=== PATIENT | female | born 1965 | race Native Hawaiian/Other Pacific Islander ===

== ENCOUNTER 2019-11-15 11:43 | Emergency (ER) | payer MEDICAID, SELFPAY ==
--- NOTE | 2019-11-15 | US_ITS ---
EXAMINATION: US VENOUS ULTRASOUND WITH DOPPLER LOWER EXTREMITY, RIGHT CLINICAL INFORMATION: Right lower extremity pain and edema. Assess for occult DVT. COMPARISON: None TECHNIQUE: Ultrasound of the deep veins is performed from the hip to the calf with compression sonography and color and pulse Doppler assessment. Spectral analysis with color-flow imaging is performed. FINDINGS: There is normal venous compression and respiratory variation and augmented flow. The visualized common femoral vein, superficial femoral vein, profunda femoral vein, popliteal vein, and visualized mid calf peroneal and posterior tibial venous segments show no evidence of deep venous thrombosis. There is no popliteal fossa cyst demonstrated. IMPRESSION: No DVT demonstrated in the right lower extremity.
[2019-11-15 11:45] VITALS: BP 119/78; PULSE 87; RESP 18; TEMP 37.5; O2SAT 100; BMI 33.1
--- NOTE | 2019-11-15 15:15 | ED.SKABFB ---
HPI - Skin/Abscess/Foreign Bdy General Chief complaint: Extremity Problem Stated complaint: cellulitis Time Seen by Provider: 11/15/19 12:55 Source: patient and interpreter translator Mode of arrival: ambulatory Limitations: no limitations History of Present Illness MD complaint: rash and lesion Onset (ago): day(s) (3) Location: RLE Severity: moderate Quality: aching Relieving factors: none Exacerbating factors: none Context: none Associated symptoms: fever, chills and cough Treatments prior to arrival: none Related Data Allergies Allergy/AdvReac Type Severity Reaction Status Date / Time No Known Allergies Allergy Unverified 10/27/19 17:10 Review of Systems Review of Systems: Constitutional : + Fever, + Chills ENT/Mouth : No sore throat, No Rhinorrhea Eyes: No Eye Pain, No Swelling, No Redness Cardiovascular : No Chest Pain, No SOB Respiratory : + Cough, No Sputum Gastrointestinal : No Nausea, No Vomiting, No Diarrhea, No abdominal Pain Genitourinary : No Dysuria, No Hematuria Musculoskeletal : No joint pain, + Myalgias, No Joint Swelling Skin : No Skin Lesions, positive skin rash Neuro : No Weakness, No Numbness, No Headache Psych : No Anxiety, No Depression Heme/Lymph: No Bruising, No Bleeding,No Lymphadenopathy Endocrine : No Polyuria, No Polydipsia All other systems reviewed and are negative [facility] Past Medical History Medical History Asthma HIV (human immunodeficiency virus infection) HTN (hypertension) Social History Social History Alcohol intake: unknown Smoking Status: Former smoker Smoked in Last 30 Days: No Use of substances other than those prescribed or required for medical reasons: Unknown Advance Directives: No Advance Directives Information Provided: No Physical Exam Vital Signs and I&O and Narrative: Vital Signs and I&O: Vital Signs Temp 100.4 F 11/15/19 15:37 Pulse 78 11/15/19 15:37 Resp 16 11/15/19 15:37 BP 144/84 H 11/15/19 15:37 Pulse Ox 98 11/15/19 15:37 Intake & Output 11/14/19 11/15/19 11/15/19 18:59 06:59 18:59 Weight 67.132 kg Body Mass Index 33.1 Appearance: Alert. Oriented X3. No acute distress. Eyes: Pupils equal, round and reactive to light. ENT: Pharynx normal. Neck: Normal inspection. Neck supple. CVS: Normal heart rate and rhythm. Pulses normal. Respiratory: No respiratory distress. Breath sounds normal. Abdomen: Soft and nontender. Skin: Skin warm and dry. Normal skin color. + erythema mild R lower leg not circumferential, no streaking upwards Extremities: positive right lower extremity edema. + R calf pain Neuro: Oriented X 3. No motor deficit. No sensory deficit. Course Course Course Narrative: signed out to Dr. Garcia pending workup and MDM - Skin/Abscess/Foreign Bdy MDM Narrative Medical decision making narrative: patinet with multiple complaints including RLE pain and rash with fevers and chills x 3 days - mild cellulitis will need labs, cultures, lactic acid, venous duplex for DVT she is NV intact, PO pain control, also c/o cough - CXR and COVID ordered Lab Data Result diagrams: 11/15/19 15:45 11/15/19 15:45 Labs: Lab Results 11/15/19 11/15/19 11/15/19 Range/Units 15:45 15:45 15:45 WBC 6.4 (4.8-10.8) X10*3/uL RBC 4.01 L (4.20-5.50) X10*6/uL Hgb 12.5 (12.0-16.0) g/dl Hct 38.3 (37-47) % MCV 95.5 (80-98) fL MCH 31.2 (27.0-33.0) pg MCHC 32.6 (31.0-35.0) g/dl RDW 13.8 (11.0-16.0) % Plt Count 304 (160-400) X10*3/uL MPV 8.2 L (9.4-12.3) fL Immature Gran % (Auto) 0.3 (0.0-0.4) % Neut % (Auto) 65.2 (45-73) % Lymph % (Auto) 18.7 L (20-40) % [place] % (Auto) 13.4 H (2-11) % Eos % (Auto) 1.9 (0-4) % Baso % (Auto) 0.5 (0-2) % Neut # (Auto) 4.2 (2.0-8.3) X10*3/uL Lymph # (Auto) 1.2 (1.2-4.9) X10*3/uL [place] # (Auto) 0.9 (0.1-1.2) X10*3/uL Eos # (Auto) 0.1 (0.0-0.4) X10*3/uL Baso # (Auto) 0.0 (0.0-0.2) X10*3/uL Abs Immat Gran (auto) 0.02 (0.00-0.03) X10*3/uL Absolute Nucleated RBC 0.000 (0.0-0.012) X10*3/uL Nucleated RBC % (auto) 0.0 (0.0-0.2) /100WBC PT 11.9 (10.8-13.0) SEC INR 1.0 (0.9-1.1) APTT 37.3 (24.1-38.0) SEC Sodium 139 (135-145) mmol/L Potassium 3.6 (3.3-5.1) mmol/l Chloride 104 (96-108) mmol/L Carbon Dioxide 28 (22-29) mmol/L Anion Gap 11 L (12-20) BUN 6 L (9-16) mg/dL Creatinine 0.97 (0.5-1.4) mg/dL Estim Creat Clear Calc 50.2 Estimated GFR 60 Random Glucose 103 (60-115) mg/dL Lactic Acid (0.5-2.0) mmol/L Calcium 8.7 (8.4-10.2) mg/dL Magnesium 2.0 (1.6-2.6) mg/dL Total Bilirubin 0.4 (0.0-1.0) mg/dL Direct Bilirubin 0.2 (0.0-0.5) mg/dL AST 22 (5-31) U/L ALT 18 (0-31) U/L Alkaline Phosphatase 94 (39-117) U/L Total Protein 7.3 (6.5-8.0) g/dL Albumin 4.3 (3.5-5.0) g/dL 11/15/19 Range/Units 15:45 WBC (4.8-10.8) X10*3/uL RBC (4.20-5.50) X10*6/uL Hgb (12.0-16.0) g/dl Hct (37-47) % MCV (80-98) fL MCH (27.0-33.0) pg MCHC (31.0-35.0) g/dl RDW (11.0-16.0) % Plt Count (160-400) X10*3/uL MPV (9.4-12.3) fL Immature Gran % (Auto) (0.0-0.4) % Neut % (Auto) (45-73) % Lymph % (Auto) (20-40) % [place] % (Auto) (2-11) % Eos % (Auto) (0-4) % Baso % (Auto) (0-2) % Neut # (Auto) (2.0-8.3) X10*3/uL Lymph # (Auto) (1.2-4.9) X10*3/uL [place] # (Auto) (0.1-1.2) X10*3/uL Eos # (Auto) (0.0-0.4) X10*3/uL Baso # (Auto) (0.0-0.2) X10*3/uL Abs Immat Gran (auto) (0.00-0.03) X10*3/uL Absolute Nucleated RBC (0.0-0.012) X10*3/uL Nucleated RBC % (auto) (0.0-0.2) /100WBC PT (10.8-13.0) SEC INR (0.9-1.1) APTT (24.1-38.0) SEC Sodium (135-145) mmol/L Potassium (3.3-5.1) mmol/l Chloride (96-108) mmol/L Carbon Dioxide (22-29) mmol/L Anion Gap (12-20) BUN (9-16) mg/dL Creatinine (0.5-1.4) mg/dL Estim Creat Clear Calc Estimated GFR Random Glucose (60-115) mg/dL Lactic Acid 1.1 (0.5-2.0) mmol/L Calcium (8.4-10.2) mg/dL Magnesium (1.6-2.6) mg/dL Total Bilirubin (0.0-1.0) mg/dL Direct Bilirubin (0.0-0.5) mg/dL AST (5-31) U/L ALT (0-31) U/L Alkaline Phosphatase (39-117) U/L Total Protein (6.5-8.0) g/dL Albumin (3.5-5.0) g/dL Discharge Plan Discharge Clinical Impression: Pneumonia Qualifiers: Pneumonia type: due to unspecified organism Laterality: left Lung location: unspecified part of lung Qualified Code(s): J18.9 - Pneumonia, unspecified organism Cellulitis Qualifiers: Site of cellulitis: extremity Site of cellulitis of extremity: lower extremity Laterality: right Qualified Code(s): L03.115 - Cellulitis of right lower limb
--- NOTE | 2019-11-15 15:16 | XR_ITS ---
EXAMINATION: XR CHEST CLINICAL INFORMATION: Cough COMPARISON: Previous chest x-ray October 2018 TECHNIQUE: Frontal view of the chest was obtained. FINDINGS: The cardiac and mediastinal contours are stable. There is a left perihilar density projecting over the posterior left eighth rib questionable for small infiltrate versus superimposition of bone and vascular markings. The right lung is clear. There is no pleural effusion or pneumothorax. Bony structures are unremarkable. IMPRESSION: Question small left perihilar infiltrate.
[2019-11-15 15:37] VITALS: BP 144/84; PULSE 78; RESP 16; TEMP 38; O2SAT 98
[2019-11-15 15:50] LABS: MANUAL DIFF FLAG NO
[2019-11-15 15:52] LABS: Basophils Percent Auto 0.5 % (0-2); Eosinophils Absolute Auto 0.1 X10*3/uL (0.0-0.4); Eosinophils Percent Auto 1.9 % (0-4); Hematocrit 38.3 % (37-47); Hemoglobin 12.5 g/dl (12.0-16.0); Imm Gran Abs Auto 0.02 X10*3/uL (0.00-0.03); Imm Gran Pct Auto 0.3 % (0.0-0.4); Lymphocytes Absolute Auto 1.2 X10*3/uL (1.2-4.9); Lymphocytes Percent Auto 18.7 % (20-40); Mean Corpuscular HGB Conc 32.6 g/dl (31.0-35.0); Mean Corpuscular Hemoglobin 31.2 pg (27.0-33.0); Mean Corpuscular Volume 95.5 fL (80-98); Mean Platelet Volume 8.2 fL (9.4-12.3); Monocytes Absolute Auto 0.9 X10*3/uL (0.1-1.2); Monocytes Percent Auto 13.4 % (2-11); Neutrophils Absolute Auto 4.2 X10*3/uL (2.0-8.3); Neutrophils Percent Auto 65.2 % (45-73); Platelet Count 304 X10*3/uL (160-400); Red Blood Count 4.01 X10*6/uL (4.20-5.50); Red Cell Distribution Width 13.8 % (11.0-16.0); White Blood Count 6.4 X10*3/uL (4.8-10.8)
[2019-11-15] MEDS: HYDROcodone Bit/Acetam 5/325 TABLET 1 TAB PO (16:03)
[2019-11-15 16:05] LABS: Prothrombin Time 11.9 SEC (10.8-13.0)
[2019-11-15 16:07] LABS: Partial Thromboplastin Time 37.3 SEC (24.1-38.0)
[2019-11-15 16:09] LABS: Lactic Acid 1.1 mmol/L (0.5-2.0)
[2019-11-15 16:15] LABS: Alanine Aminotransferase 18 U/L (0-31); Albumin Level 4.3 g/dL (3.5-5.0); Alkaline Phosphatase 94 U/L (39-117); Anion Gap 11 (12-20); Aspartate Amino Transferase 22 U/L (5-31); Bilirubin Direct 0.2 mg/dL (0.0-0.5); Bilirubin Total 0.4 mg/dL (0.0-1.0); Blood Urea Nitrogen 6 mg/dL (9-16); Calcium 8.7 mg/dL (8.4-10.2); Carbon Dioxide 28 mmol/L (22-29); Chloride 104 mmol/L (96-108); Creatinine Clr Calc Pharmacy 50.2; Estimated Glomerular Filt Rate 60; Glucose Random 103 mg/dL (60-115); Potassium 3.6 mmol/l (3.3-5.1); Sodium 139 mmol/L (135-145); Total Protein 7.3 g/dL (6.5-8.0)
--- NOTE | 2019-11-15 16:15 | PC.NURSE ---
ATTEMPT X2 FOR IV ACCESS UNSUCCESSFUL PT TO US, PT WAS MEDICATED PO FOR PAIN
[2019-11-15 16:44] VITALS: BP 133/81; PULSE 75; RESP 16; TEMP 37.2; O2SAT 95
[2019-11-15] MEDS: Piperacillin Sodium/Tazobactam 3.375 GM in 0.9 % Sodium Chloride 50 ML IV (16:52)
[2019-11-15 18:52] VITALS: BP 132/75
== END 2019-11-15 18:52 | disposition home or self-care (01) ==
PROVIDERS: Emergency Medicine; Emergency Provider Internal Medicine
DX: L03.115 Cellulitis of right lower limb (principal); J18.9 Pneumonia, unspecified organism; M79.661 Pain in right lower leg; I10 Essential (primary) hypertension; Z20.828 Contact with and (suspected) exposure to other viral communicable diseases; Z21 Asymptomatic human immunodeficiency virus [HIV] infection status; Z87.891 Personal history of nicotine dependence
CPT/HCPCS: 36415; 71045; 80048; 80076; 83605; 83735; 85025; 85610; 85730; 87040; 87635; 93971; 96365; 99284

== ENCOUNTER 2019-12-16 12:42 | Outpatient (REF) | payer MEDICAID, SELFPAY ==
--- NOTE | 2019-12-16 | MM_ITS ---
EXAMINATION: MM DIAGNOSTIC DIGITAL BREAST TOMOSYNTHESIS, RIGHT TARGETED RIGHT BREAST ULTRASOUND CLINICAL INFORMATION: Right breast pain. Status post right lumpectomy and radiation therapy. COMPARISON: Mammography: 10/04/2019 and studies dating back to 12/17/2009. TECHNIQUE: Digital breast tomosynthesis is performed in craniocaudal, exaggerated craniocaudal, and mediolateral oblique views along with computer-aided detection (CAD). Synthesized 2D images are generated from the tomosynthesis. Targeted right breast ultrasound. FINDINGS: There are scattered areas of fibroglandular density (ACR BI-RADS breast composition Category b). Patient status post right breast lumpectomy with postsurgical change upper outer aspect. No new abnormal dominant mass or suspicious grouping of calcifications identified. Ultrasound evaluation in regions of patient's pain which involves nearly the entire right breast did not demonstrate any new abnormal cystic or solid mass or region of abnormal distal sound shadowing that is not associated with the surgical region. MM/MM tomosynthesis screening BI IMPRESSION: No specific mammographic or ultrasound abnormalities to suggest new malignancy right breast. Clinical followup suggested. ASSESSMENT: BI-RADS 2: Benign. RECOMMENDATION: Routine annual mammography screening. This patient's information was entered into a reminder system with a target due date for their next mammogram.
--- NOTE | 2019-12-16 | MM_ITS ---
EXAMINATION: BONE DENSITOMETRY CLINICAL INDICATION: Encounter for screening for osteoporosis. COMPARISON: This is the patient's baseline examination. TECHNIQUE: Using a [employer] DXA System (software version: 13.1) manufactured by [employer], dual-energy x-ray absorptiometry was performed of the lumbar spine and left hip. The images are of good technical quality. Summary results are attached. FINDINGS: AP SPINE L1-L4: BMD 1.257 g/cm2, Z-score 1.5, T-score 0.6, normal. LEFT FEMUR, NECK: BMD 0.970 g/cm2, Z-score 0.5, T-score -0.5, normal. LEFT FEMUR, TOTAL: BMD 0.990 g/cm2, Z-score 0.5, T-score -0.1, normal. IDENTIFIED RISK FACTORS: Menopause. HISTORY OF FRACTURE: None listed. MEDICATIONS: Calcium supplements or multivitamins. MM/XR DEXA axial skeleton IMPRESSION: 1. DIAGNOSIS: Normal bone density based on the lowest T-score value of -0.5 in the femoral neck applying World Health Organization criteria. 2. 10-YEAR FRACTURE RISK PREDICTION, FRAX: Major osteoporotic fracture (clinical spine, forearm, hip or shoulder) 6.0%. Hip fracture 0.1%. 3. Treatment Recommendations: NOF guidelines recommend consideration for treatment in postmenopausal women and men age 50 and older presenting with the following: -A hip or vertebral (clinical or morphometric) fracture. -T-score less than or equal to -2.5 at the femoral neck or spine after appropriate evaluation to exclude secondary causes. -Low bone mass at the hip or spine and a 10-year fracture probability by FRAX of greater than or equal to 3% for hip fracture or greater than or equal to 20% for major osteoporotic fracture based on the [place] adapted WHO algorithm. 4. Other Recommendations: All treatment decisions require clinical judgment and consideration of individual patient factors, including patient preferences, comorbidities, previous drug use, risk factors not captured in the FRAX model (e.g. frailty, falls, vitamin D deficiency, increased bone turnover, interval significant decline in bone density) and possible under or overestimation of fracture risk by FRAX. FUTURE SCAN RECOMMENDATION: People with diagnosed cases of osteoporosis or at high risk for fracture should have regular bone mineral density tests. For patients eligible for Medicare, routine testing is allowed once every 2 years. The testing frequency can be increased to one year for patients who have rapidly progressing disease, those who are receiving or discontinuing medical therapy to restore bone mass, or have additional risk factors.
== END 2019-12-16 12:43 | disposition home or self-care (01) ==
LOC: HO.MAMMO 12:42
PROVIDERS: Visit Provider Advanced Practice Midwife
DX: N64.4 Mastodynia (principal); Z85.3 Personal history of malignant neoplasm of breast; Z13.820 Encounter for screening for osteoporosis; Z21 Asymptomatic human immunodeficiency virus [HIV] infection status
CPT/HCPCS: 76642; 77063; 77067; 77080

== ENCOUNTER 2020-03-22 11:14 | Outpatient (REF) | payer MEDICAID, SELFPAY ==
--- NOTE | ~2020-03-22 | US_ITS ---
EXAMINATION: US ABDOMEN COMPLETE CLINICAL INFORMATION: Right upper quadrant pain and distention.. COMPARISON: None TECHNIQUE: Real-time imaging of the abdominal viscera. FINDINGS: PANCREAS: The head and the body of the pancreas is homogeneous in echotexture. The tail is obscured by overlying gas. ABDOMINAL AORTA: The proximal, mid, and distal segments are normal in caliber. INFERIOR VENA CAVA: Visualized portions are normal. LIVER: Normal. The liver is normal in size. The liver contour is normal. Parenchymal echogenicity is normal. No focal hepatic lesion. There is no intrahepatic biliary duct dilatation seen. GALLBLADDER: The gallbladder wall thickness is 0.18 cm. The gallbladder is physiologically distended without evidence of stones, sludge, polyps, wall thickening or pericholecystic fluid. COMMON BILE DUCT: Normal in caliber measuring 0.67 cm in diameter. RIGHT KIDNEY: Normal. No hydronephrosis. No renal calculi or focal parenchymal lesions. The kidney measures 9.7 cm in maximum dimension. LEFT KIDNEY: Normal. No hydronephrosis. No renal calculi or focal parenchymal lesions. The kidney measures 10.3 cm in maximum dimension. SPLEEN: There are echogenic calcifications in the spleen. The spleen measures 7.4 cm in maximum dimension. FREE FLUID: None. US/US abdomen complete IMPRESSION: Small echogenic calcifications spleen, microlithiasis. The gallbladder is unremarkable. Rest of the abdominal ultrasound is unremarkable.
== END 2020-03-22 11:15 | disposition home or self-care (01) ==
LOC: HO.HMGCX 11:14
PROVIDERS: Visit Provider Nurse Practitioner Primary Care
DX: R10.11 Right upper quadrant pain (principal); R14.0 Abdominal distension (gaseous)
CPT/HCPCS: 76700

== ENCOUNTER → 2020-05-29 13:12 | Outpatient (BNVA) | payer MEDICAID, SELFPAY | PROVIDERS: Visit Provider Physician Assistant ==

== ENCOUNTER 2020-08-28 12:27 | Outpatient (REF) | payer MEDICAID, SELFPAY ==
--- NOTE | ~2020-08-28 | US_ITS ---
EXAMINATION: US VENOUS ULTRASOUND WITH DOPPLER LOWER EXTREMITY, BILATERAL CLINICAL INFORMATION: Bilateral leg pain and swelling. COMPARISON: None TECHNIQUE: Ultrasound of the deep veins is performed from the hip to the calf with compression sonography and color and pulse Doppler assessment. Spectral analysis with color-flow imaging is performed. FINDINGS: RIGHT: There is normal venous compression and respiratory variation and augmented flow. The visualized common femoral vein, superficial femoral vein, profunda femoral vein, popliteal vein, and the trifurcation region shows no evidence of deep venous thrombosis. There is no significant popliteal fossa cyst. LEFT: There is normal venous compression and respiratory variation and augmented flow. The visualized common femoral vein, superficial femoral vein, profunda femoral vein, popliteal vein, and the trifurcation region shows no evidence of deep venous thrombosis. There is no significant popliteal fossa cyst. If the patient's symptoms persist, followup ultrasound in 5 days 7 days might be of value to exclude proximal propagation from a non-visualized calf vein. US/US venous duplex LE BI IMPRESSION: No DVT demonstrated in the bilateral lower extremity.
== END 2020-08-28 12:28 | disposition home or self-care (01) ==
LOC: HO.US 12:27
PROVIDERS: PCP Nurse Practitioner Family; Visit Provider Emergency Medicine
DX: M79.661 Pain in right lower leg (principal); M79.662 Pain in left lower leg; R22.43 Localized swelling, mass and lump, lower limb, bilateral
CPT/HCPCS: 93970

== ENCOUNTER 2020-12-03 18:44 | Emergency (ER) | payer MEDICAID, SELFPAY ==
--- NOTE | ~2020-12-03 | US_ITS ---
EXAMINATION: US ABDOMEN LIMITED CLINICAL INFORMATION: Right upper quadrant pain.. COMPARISON: Ultrasound of abdomen March 22, 2020 TECHNIQUE: Real-time imaging of the right upper quadrant abdominal viscera. Color Doppler exam was used. FINDINGS: PANCREAS: Normal. LIVER: Normal. The liver is normal in size. The liver contour is normal. Parenchymal echogenicity is normal. No focal hepatic lesion. There is no intrahepatic biliary duct dilatation seen. GALLBLADDER: Normal. The gallbladder is physiologically distended without evidence of stones, sludge, polyps, wall thickening or pericholecystic fluid. Positive ultrasound Gray's sign. COMMON BILE DUCT: Normal in caliber measuring 0.4 cm in diameter. RIGHT KIDNEY: Normal. No hydronephrosis. No renal calculi or focal parenchymal lesions. The kidney measures 9.3 cm in maximum dimension. FREE FLUID: None. US/US abdomen limited IMPRESSION: No gallstone or acute change of gallbladder. No bile duct dilatation. Positive ultrasound Gray's sign.
--- NOTE | ~2020-12-03 | CT_ITS ---
EXAMINATION: CT ABDOMEN AND PELVIS WITHOUT CONTRAST CLINICAL INFORMATION: Upper abdominal pain COMPARISON: Ultrasound abdomen 12/03/2020 TECHNIQUE: Multidetector volumetric imaging was performed from the superior aspect of the liver through the pubic symphysis. Sagittal and coronal reformatted images were obtained on the technologist's workstation. This CT examination was performed using dose optimization techniques as appropriate, variously including the following: *Automated exposure control *Adjustment of mA and/or kV according to patient size (this includes techniques or standardized protocols for targeted exams where dose is matched to indication/reason for exam; i.e. extremities or head) *Use of iterative reconstruction technique DLP: 506 mGy-cm FINDINGS: LUNG BASES: The visualized lung bases are unremarkable. LIVER, GALLBLADDER, AND BILIARY TREE: The liver is normal in size, shape, and attenuation. No focal hepatic lesion or biliary ductal dilatation is present. The gallbladder is contracted but otherwise unremarkable with no evidence of radiopaque gallstones, gallbladder wall thickening, or obvious pericholecystic inflammatory changes. PANCREAS: Unremarkable. SPLEEN: Multiple splenic granulomas are present ADRENAL GLANDS: Unremarkable. KIDNEYS AND URETERS: The kidneys are normal in size, shape, and attenuation. No hydronephrosis, hydroureter, or calculi seen. No perinephric stranding. BLADDER: Unremarkable. GASTROINTESTINAL TRACT: The small and large bowel are unremarkable. The appendix is none seen but there is no evidence of appendicitis. ABDOMINAL WALL: No significant hernia is appreciated. LYMPH NODES: Normal. VASCULAR: Unremarkable. PELVIC VISCERA: Unremarkable. OSSEOUS STRUCTURES: Unremarkable. CT/CT abdomen pelvis wo con IMPRESSION: No significant abnormality is seen and a cause for the patient's upper abdominal pain has not been found.
[2020-12-03 20:40] VITALS: BP 140/90; PULSE 73; RESP 18; TEMP 36.9; O2SAT 99; BMI 33.4
[2020-12-03 21:09] LABS: COVID-19 Test Negative (Negative); IDNOW Serial# 9DD0AD1C
--- NOTE | 2020-12-03 21:26 | ED_ITS ---
HPI - Abdominal Pain General Chief Complaint: Abdominal Pain Stated Complaint: abd pain Time Seen by Provider: 12/03/20 21:26 Source: patient Mode of arrival: ambulatory Limitations: no limitations History of Present Illness HPI narrative: Patient complaining of pain in upper abdomen for last 5 days with nausea and abdominal bloating feeling was seen by PCP had UTI started on nitrofurantoin patient has sonogram in 04/01 no gallstones were seen that time no history of kidney stone Related Data Home Medications Medication Instructions Recorded Confirmed omeprazole 20 mg capsule,delayed 20 mg PO DAILY 05/29/20 05/29/20 release Previous Rx's Medication Instructions Recorded omeprazole 20 mg capsule,delayed 20 mg PO BID 30 Days #60 cap 10/23/20 release sucralfate 1 gram tablet 1 g PO TID #90 tab 12/04/20 Allergies Allergy/AdvReac Type Severity Reaction Status Date / Time No Known Allergies Allergy Unverified 05/29/20 13:13 Review of Systems Review of Systems Yes all other systems are reviewed and are negative Physical Exam Vital Signs: Vital Signs: Last Vital Signs Temp 98.5 F 12/03/20 20:40 Pulse 73 12/03/20 20:40 Resp 18 12/03/20 20:40 BP 140/90 H 12/03/20 20:40 Pulse Ox 99 12/03/20 20:40 Body Mass Index 33.4 Appearance: Alert. Oriented X3. No acute distress. Eyes: No pallor or icterus ENT: Pharynx normal. Oral Mucosa moist Neck: Normal inspection. Neck supple. CVS: Normal heart rate and rhythm. Pulses normal. Respiratory: No respiratory distress. Equal air entry bilateral, no wheezing/rales/rhonchi Abdomen: Soft and tenderness right upper quadrant no rebound tenderness or guarding Bowel sounds are present, no mass palpable, no CVA tenderness Skin: Skin warm and dry. Normal skin color. Normal skin turgor. Extremities: No lower extremity edema. No calf tenderness Neuro: Oriented X 3. Course Reevaluation(s) Reevaluation #1: Patient is still complaining of pain in upper abdomen ultrasound of abdomen was negative for gallstones but Gray sign is positive. CBC urine and liver functions are normal, will do CT scan of the abdomen Time: 23:30 MDM - Abdominal Pain MDM Narrative Medical decision making narrative: Patient with upper abdominal pain ultrasound CT scan is negative labs are stable likely from gastritis patient already on Prilosec advised to add sucralfate daily and advised not to take spicy greasy food Lab Data Attestation: I reviewed the patient's lab results. Result diagrams: 12/03/20 22:00 12/03/20 22:00 Labs: Lab Results 12/03/20 12/03/20 12/03/20 Range/Units 20:48 22:00 22:00 WBC 8.2 (4.8-10.8) X10*3/uL RBC 3.94 L (4.20-5.50) X10*6/uL Hgb 12.4 (12.0-16.0) g/dl Hct 37.5 (37-47) % MCV 95.2 (80-98) fL MCH 31.5 (27.0-33.0) pg MCHC 33.1 (31.0-35.0) g/dl RDW 13.4 (11.0-16.0) % Plt Count 344 (160-400) X10*3/uL MPV 8.6 L (9.4-12.3) fL Immature Gran % (Auto) 0.2 (0.0-0.4) % Neut % (Auto) 63.6 (45-73) % Lymph % (Auto) 24.0 (20-40) % [place] % (Auto) 8.3 (2-11) % Eos % (Auto) 3.4 (0-4) % Baso % (Auto) 0.5 (0-2) % Lymph # (Auto) 2.0 (1.2-4.9) X10*3/uL [place] # (Auto) 0.7 (0.1-1.2) X10*3/uL Eos # (Auto) 0.3 (0.0-0.4) X10*3/uL Baso # (Auto) 0.0 (0.0-0.2) X10*3/uL Abs Immat Gran (auto) 0.02 (0.00-0.03) X10*3/uL Absolute Neuts (auto) 5.2 (2.0-8.3) X10*3/uL Absolute Nucleated RBC 0.000 (0.0-0.012) X10*3/uL Nucleated RBC % (auto) 0.0 (0.0-0.2) /100WBC Sodium 141 (135-145) mmol/L Potassium 3.6 (3.3-5.1) mmol/L Chloride 107 (96-108) mmol/L Carbon Dioxide 24 (22-29) mmol/L Anion Gap 14 (12-20) BUN 10 D (9-16) mg/dL Creatinine 0.86 (0.5-1.4) mg/dL Estim Creat Clear Calc 56.3 Estimated GFR > 60 Random Glucose 123 H (60-115) mg/dL Calcium 9.0 (8.4-10.2) mg/dL Total Bilirubin 0.3 (0.0-1.0) mg/dL AST 18 (5-31) U/L ALT 10 (0-31) U/L Alkaline Phosphatase 97 (39-117) U/L Total Protein 7.3 (6.5-8.0) g/dL Albumin 4.2 (3.5-5.0) g/dL Lipase 43 (8-78) U/L Urine Color Urine Appearance Urine pH (5.0-8.0) Ur Specific [place] (1.005-1.025) Urine Protein (NEG-TRACE) MG/DL Urine Glucose (UA) (NEG) MG/DL Urine Ketones (NEG) MG/DL Urine Blood (NEG) Urine Nitrite (NEG) Ur Leukocyte Esterase (NEG) Urine RBC (0) /HPF Urine WBC (0-4) /HPF Ur Squamous Epith Cells /LPF Urine Bacteria /LPF COVID-19 ([facility]) Negative (Negative) COVID-19 Clin Com See Note 12/03/20 Range/Units 22:51 WBC (4.8-10.8) X10*3/uL RBC (4.20-5.50) X10*6/uL Hgb (12.0-16.0) g/dl Hct (37-47) % MCV (80-98) fL MCH (27.0-33.0) pg MCHC (31.0-35.0) g/dl RDW (11.0-16.0) % Plt Count (160-400) X10*3/uL MPV (9.4-12.3) fL Immature Gran % (Auto) (0.0-0.4) % Neut % (Auto) (45-73) % Lymph % (Auto) (20-40) % [place] % (Auto) (2-11) % Eos % (Auto) (0-4) % Baso % (Auto) (0-2) % Lymph # (Auto) (1.2-4.9) X10*3/uL [place] # (Auto) (0.1-1.2) X10*3/uL Eos # (Auto) (0.0-0.4) X10*3/uL Baso # (Auto) (0.0-0.2) X10*3/uL Abs Immat Gran (auto) (0.00-0.03) X10*3/uL Absolute Neuts (auto) (2.0-8.3) X10*3/uL Absolute Nucleated RBC (0.0-0.012) X10*3/uL Nucleated RBC % (auto) (0.0-0.2) /100WBC Sodium (135-145) mmol/L Potassium (3.3-5.1) mmol/L Chloride (96-108) mmol/L Carbon Dioxide (22-29) mmol/L Anion Gap (12-20) BUN (9-16) mg/dL Creatinine (0.5-1.4) mg/dL Estim Creat Clear Calc Estimated GFR Random Glucose (60-115) mg/dL Calcium (8.4-10.2) mg/dL Total Bilirubin (0.0-1.0) mg/dL AST (5-31) U/L ALT (0-31) U/L Alkaline Phosphatase (39-117) U/L Total Protein (6.5-8.0) g/dL Albumin (3.5-5.0) g/dL Lipase (8-78) U/L Urine Color YELLOW Urine Appearance HAZY Urine pH 7.5 (5.0-8.0) Ur Specific [place] 1.010 (1.005-1.025) Urine Protein NEG (NEG-TRACE) MG/DL Urine Glucose (UA) NEG (NEG) MG/DL Urine Ketones NEG (NEG) MG/DL Urine Blood NEG (NEG) Urine Nitrite NEG (NEG) Ur Leukocyte Esterase TRACE H (NEG) Urine RBC 0 (0) /HPF Urine WBC 0-2 (0-4) /HPF Ur Squamous Epith Cells 3+ /LPF Urine Bacteria 1+ /LPF COVID-19 ([facility]) (Negative) COVID-19 Clin Com Discharge Plan Discharge Clinical Impression: Abdominal pain Qualifiers: Abdominal location: epigastric Qualified Code(s): R10.13 - Epigastric pain Patient Disposition: Home, Self-Care Instructions: Gastritis (ED), Abdominal Pain (ED) Additional Instructions: Continue your omeprazole Sucralfate as advised Follow-up with your PCP Prescriptions: New sucralfate 1 gram tablet 1 g PO TID Qty: 90 RF: 0 No Action omeprazole 20 mg capsule,delayed release(DR/EC) 20 mg PO BID 30 Days Qty: 60 RF: 6 omeprazole 20 mg capsule,delayed release(DR/EC) 20 mg PO DAILY RF: 0 Print Language: Chinese [facility] Past Medical History Medical History Acid reflux Asthma HIV (human immunodeficiency virus infection) HTN (hypertension) RUQ pain Social History Social History Household Members: Family Alcohol intake: never Advance Directives: No Advance Directives Information Provided: Yes Patient : No Current occupational status: disabled
[2020-12-03] MEDS: 0.9 % Sodium Chloride 1,000 ML 999 ML IVCONT (22:08)
[2020-12-03] MEDS: Ketorolac Tromethamine 15 MG/ML VIAL 30 MG IVPUSH (22:08)
[2020-12-03 22:17] LABS: Basophils Percent Auto 0.5 % (0-2); Eosinophils Absolute Auto 0.3 X10*3/uL (0.0-0.4); Eosinophils Percent Auto 3.4 % (0-4); Hematocrit 37.5 % (37-47); Hemoglobin 12.4 g/dl (12.0-16.0); Imm Gran Abs Auto 0.02 X10*3/uL (0.00-0.03); Imm Gran Pct Auto 0.2 % (0.0-0.4); MANUAL DIFF FLAG NO; Mean Corpuscular HGB Conc 33.1 g/dl (31.0-35.0); Mean Corpuscular Hemoglobin 31.5 pg (27.0-33.0); Mean Corpuscular Volume 95.2 fL (80-98); Mean Platelet Volume 8.6 fL (9.4-12.3); Monocytes Absolute Auto 0.7 X10*3/uL (0.1-1.2); Monocytes Percent Auto 8.3 % (2-11); Neutrophils Absolute Auto 5.2 X10*3/uL (2.0-8.3); Neutrophils Percent Auto 63.6 % (45-73); Platelet Count 344 X10*3/uL (160-400); Red Blood Count 3.94 X10*6/uL (4.20-5.50); Red Cell Distribution Width 13.4 % (11.0-16.0); White Blood Count 8.2 X10*3/uL (4.8-10.8)
[2020-12-03 22:32] LABS: Alanine Aminotransferase 10 U/L (0-31); Albumin Level 4.2 g/dL (3.5-5.0); Alkaline Phosphatase 97 U/L (39-117); Anion Gap 14 (12-20); Aspartate Amino Transferase 18 U/L (5-31); Bilirubin Total 0.3 mg/dL (0.0-1.0); Blood Urea Nitrogen 10 mg/dL (9-16); Carbon Dioxide 24 mmol/L (22-29); Chloride 107 mmol/L (96-108); Creatinine Clr Calc Pharmacy 56.3; Estimated Glomerular Filt Rate > 60; Glucose Random 123 mg/dL (60-115); Lipase 43 U/L (8-78); Potassium 3.6 mmol/L (3.3-5.1); Sodium 141 mmol/L (135-145); Total Protein 7.3 g/dL (6.5-8.0)
[2020-12-03 22:59] LABS: Appearance Urine HAZY; Color Urine YELLOW; Glucose Urine UA NEG (NEG); Leukocyte Esterase Urine TRACE (NEG); Nitrite Urine NEG (NEG); PH 7.5 (5.0-8.0); UACC Culture Trigger YES; Urine Blood NEG (NEG); Urine Ketones NEG (NEG); Urine Protein NEG (NEG-TRACE)
[2020-12-03 23:08] LABS: Bacteria Urine 1+ /LPF; RBC Urine 0 /HPF (0); Squamous Epithelial Cell Urine 3+ /LPF; WBC Urine 0-2 /HPF (0-4)
== END 2020-12-04 01:09 | disposition home or self-care (01) ==
PROVIDERS: Emergency Provider Internal Medicine
DX: R10.13 Epigastric pain (principal); N39.0 Urinary tract infection, site not specified; I10 Essential (primary) hypertension; J45.909 Unspecified asthma, uncomplicated; Z21 Asymptomatic human immunodeficiency virus [HIV] infection status; Z20.822 Contact with and (suspected) exposure to COVID-19
CPT/HCPCS: 36415; 74176; 76705; 80053; 81001; 83690; 85025; 87086; 87635; 96361; 96374; 99283; 99284; J1885

== ENCOUNTER → 2021-01-23 09:10 | Outpatient (BNVA) | payer MEDICAID, SELFPAY | PROVIDERS: PCP Nurse Practitioner Primary Care; Referring Provider Nurse Practitioner Primary Care; Visit Provider Surgery | DX: R10.11 Right upper quadrant pain (principal) | CPT/HCPCS: 99202 ==

== ENCOUNTER → 2021-02-26 07:57 | Outpatient (REF) | payer MEDICAID, SELFPAY ==
--- NOTE | ~2021-02-26 | NM_ITS ---
EXAMINATION: NM BILIARY TRACT WITH ORAL FATTY MEAL CLINICAL INFORMATION: Right upper quadrant pain. COMPARISON: No previous biliary scan is available for comparison. The diagnostic CT scan of the abdomen and pelvis, dated 12/03/2020, is available for comparison. Abdominal ultrasound on the same date is also available for comparison. TECHNIQUE: Serial gamma scintillation camera images were obtained over the abdomen for a total observation period of 124 minutes following the intravenous administration of 5 mCi Tc-99m Mebrofenin. FINDINGS: There is good concentration of activity in the liver by 5 minutes post injection. Biliary activity is visualized by 8 minutes. The gallbladder is well visualized by 20 minutes. Small bowel is well visualized by 25 minutes. At 60 minutes post Mebrofenin injection, 8 ounces of Ensure-plus Brand was administered orally and an additional 60 minutes of images were obtained. There is good emptying of the gallbladder following ingestion of the fatty meal. At the end of the study there is good clearance of activity from the liver and visualization of diffuse small bowel activity. The calculated gallbladder ejection fraction is 87% (normal gallbladder ejection fraction using Ensure supplement orally is greater than 33%). NM/NM hepatobiliary wo pharm IMPRESSION: Visualization of the gallbladder is evidence of a patent cystic duct and strong evidence against the diagnosis of acute cholecystitis. The common bile duct is patent. Gallbladder emptying and ejection fraction are normal. Liver function appears normal.
== END ==
LOC: HO.NUCMED 07:57
PROVIDERS: Visit Provider Surgery
DX: R10.11 Right upper quadrant pain (principal)
CPT/HCPCS: 78226; A9537

== ENCOUNTER → 2021-03-04 09:14 | Outpatient (BNVA) | payer MEDICAID, SELFPAY | PROVIDERS: PCP Nurse Practitioner Primary Care; Visit Provider Surgery ==

== ENCOUNTER 2021-03-20 14:42 | Outpatient (REF) | payer MEDICAID, SELFPAY ==
--- NOTE | ~2021-03-20 | MM_ITS ---
EXAMINATION: MM SCREENING DIGITAL BREAST TOMOSYNTHESIS, BILATERAL CLINICAL INFORMATION: Right lumpectomy for breast cancer, 2008. Due for yearly exam. COMPARISON: Mammography: 12/16/2019, 10/04/2019, 06/15/2018, 06/02/2017, 04/15/2016 TECHNIQUE: Digital breast tomosynthesis is performed in both the craniocaudal and mediolateral oblique views along with computer-aided detection (CAD). Synthesized 2D images are generated from the tomosynthesis. Additional right CC view is provided. FINDINGS: There are scattered areas of fibroglandular density (ACR BI-RADS breast composition Category b). There are post therapy changes on the right with stable minor scarring and reduced breast size. Both breasts show similar parenchymal distribution to prior studies. No interval mass or architectural abnormality or developing density. No abnormal calcifications. No significant changes. MM/MM tomosynthesis screening BI IMPRESSION: No mammographic evidence of malignancy. Post therapy changes right breast. ASSESSMENT: BI-RADS 2: Benign RECOMMENDATION: Routine annual mammography screening. This patient's information was entered into a reminder system with a target due date for their next mammogram.
== END 2021-03-20 14:43 | disposition home or self-care (01) ==
LOC: HO.MAMMO 14:42
PROVIDERS: PCP Nurse Practitioner Primary Care; Visit Provider Nurse Practitioner Primary Care
DX: Z12.31 Encounter for screening mammogram for malignant neoplasm of breast (principal)
CPT/HCPCS: 77063; 77067

== ENCOUNTER → 2021-08-05 09:08 | Outpatient (BNVA) | payer MEDICAID, SELFPAY | PROVIDERS: PCP Nurse Practitioner Primary Care; Visit Provider Physician Assistant | DX: K21.9 Gastro-esophageal reflux disease without esophagitis (principal) | CPT/HCPCS: 99212 ==

== ENCOUNTER 2022-06-02 11:56 | Outpatient (REF) | payer MEDICAID, SELFPAY ==
--- NOTE | ~2022-06-02 | MM_ITS ---
EXAMINATION: MM SCREENING DIGITAL BREAST TOMOSYNTHESIS, BILATERAL CLINICAL INFORMATION: Screening. Asymptomatic. COMPARISON: Mammography: 03/20/2021 and studies dating back to 02/27/2015. TECHNIQUE: Digital breast tomosynthesis is performed in both the craniocaudal and mediolateral oblique views along with computer-aided detection (CAD). Synthesized 2D images are generated from the tomosynthesis. FINDINGS: The breasts are heterogeneously dense, which may obscure small masses (ACR BI-RADS breast composition Category c). Postsurgical change is again seen within the right breast. No new abnormal dominant mass or suspicious grouping of microcalcifications identified. MM/MM tomosynthesis screening BI IMPRESSION: No significant changes from prior exam. ASSESSMENT: BI-RADS 2: Benign RECOMMENDATION: Routine annual mammography screening. This patient's information was entered into a reminder system with a target due date for their next mammogram.
== END 2022-06-02 11:57 | disposition home or self-care (01) ==
LOC: HO.MAMMO 11:56
PROVIDERS: PCP Nurse Practitioner Primary Care; Visit Provider Nurse Practitioner Primary Care
DX: Z12.31 Encounter for screening mammogram for malignant neoplasm of breast (principal)
CPT/HCPCS: 77063; 77067

== ENCOUNTER 2022-06-29 21:17 | Emergency (ER) | payer MEDICAID, SELFPAY ==
--- NOTE | ~2022-06-29 | XR_ITS ---
EXAMINATION: XR CHEST CLINICAL INFORMATION: Chest pain COMPARISON: 11/15/2019 TECHNIQUE: 2 views of the chest were obtained. FINDINGS: The lungs are clear with no focal consolidation. No evidence of pneumothorax, pulmonary edema, or pleural effusions. The cardiomediastinal silhouette is unremarkable. No acute osseous findings. XR/XR chest 2V IMPRESSION: No acute cardiopulmonary findings.
--- NOTE | 2022-06-29 21:23 | ECG_ITS ---
Test Reason : CHEST PAIN Blood Pressure : / mmHG Vent. Rate : 071 BPM Atrial Rate : 071 BPM P-R Int : 148 ms QRS Dur : 092 ms QT Int : 404 ms P-R-T Axes : 042 -18 040 degrees QTc Int : 439 ms Normal sinus rhythm Normal ECG When compared with ECG of 05-MAY-2018 21:03, Nonspecific T wave abnormality has replaced inverted T waves in Inferior leads Nonspecific T wave abnormality no longer evident in Anterolateral leads Referred By: Generic ED Physician Electronically Signed By:TOM MEANS
[2022-06-29 21:47] VITALS: BP 147/78; PULSE 66; RESP 18; TEMP 36.1; O2SAT 99; BMI 32.3
[2022-06-29 22:03] LABS: MANUAL DIFF FLAG NO
[2022-06-29 22:04] LABS: Basophils Absolute Auto 0.1 X10*3/uL (0.0-0.2); Basophils Percent Auto 0.7 % (0-2); Eosinophils Absolute Auto 0.2 X10*3/uL (0.0-0.4); Eosinophils Percent Auto 2.2 % (0-4); Hematocrit 41.7 % (37.0-47.0); Hemoglobin 13.7 g/dl (12.0-16.0); Imm Gran Abs Auto 0.01 X10*3/uL (0.00-0.03); Imm Gran Pct Auto 0.1 % (0.0-0.4); Lymphocytes Absolute Auto 1.8 X10*3/uL (1.2-4.9); Lymphocytes Percent Auto 25.1 % (20-40); Mean Corpuscular HGB Conc 32.9 g/dl (31.0-35.0); Mean Corpuscular Hemoglobin 30.4 pg (27.0-33.0); Mean Corpuscular Volume 92.5 fL (80.0-98.0); Mean Platelet Volume 7.9 fL (9.4-12.3); Monocytes Absolute Auto 0.7 X10*3/uL (0.1-1.2); Neutrophils Absolute Auto 4.4 x10*3/uL (2.0-8.3); Neutrophils Percent Auto 61.9 % (45-73); Platelet Count 323 X10*3/uL (160-400); Red Blood Count 4.51 X10*6/uL (4.20-5.50); White Blood Count 7.2 X10*3/uL (4.8-10.8)
[2022-06-29 22:42] LABS: Alanine Aminotransferase 18 U/L (0-31); Albumin Level 4.7 g/dL (3.5-5.0); Alkaline Phosphatase 76 U/L (39-117); Anion Gap 12 (12-20); Aspartate Amino Transferase 20 U/L (5-31); Bilirubin Direct 0.2 mg/dL (0.0-0.5); Bilirubin Total 0.5 mg/dL (0.0-1.0); Blood Urea Nitrogen 14 mg/dL (9-16); Calcium 9.6 mg/dL (8.4-10.2); Carbon Dioxide 27 mmol/L (22-29); Chloride 103 mmol/L (96-108); Creatinine Clr Calc Pharmacy 54.6; Estimated Glomerular Filt Rate > 60; Glucose Random 88 mg/dL (60-115); Lipase 29 U/L (8-78); Potassium 3.7 mmol/L (3.3-5.1); Sodium 138 mmol/L (135-145); Total Protein 7.7 g/dL (6.5-8.0)
[2022-06-29 22:58] LABS: Troponin-I High Sensitivity < 2.7 ng/L (<3.5-17.0)
[2022-06-29 23:49] VITALS: BP 153/77; PULSE 64; RESP 14; O2SAT 98
--- NOTE | 2022-06-29 23:54 | ED.GENADULT ---
HPI - General Adult General Chief complaint: Abdominal Pain Stated complaint: abd pain, dizziness, chest pain Time Seen by Provider: 06/29/22 23:42 Source: patient, family, RN notes reviewed, old records reviewed and fryline attendant (family acting as fryline attendant) Mode of arrival: ambulatory Limitations: language barrier History of Present Illness HPI narrative: 56-year-old female presents for evaluation of upper pain, decreased appetite. Patient reports that she has had 1/2 weeks of burning upper abdominal pain that radiates into her chest the last 3 days She has a history of GERD and takes omeprazole twice daily The patient reports that she was recently prescribed sucralfate which has not helped her symptoms He denies any history of abdominal surgeries She follows with Gastroenterology in [place] and has an appointment in 9 days She has been able tolerate liquids but states she has not had any solid food week Her pain seems to be worse after eating and it causes her to get nauseous and throw Related Data Home Medications Medication Instructions Recorded Confirmed albuterol sulfate 90 mcg/actuation 2 puff PO Q6H PRN 01/23/21 03/04/21 aerosol inhaler (ProAir HFA) amlodipine 10 mg tablet 10 mg PO QAM 01/23/21 03/04/21 bictegravir 50 mg-emtricitabine 1 tab PO DAILY 01/23/21 03/04/21 200 mg-tenofovir alafenam 25 mg tablet (Biktarvy) calcium carbonate 600 mg-vitamin 1 tab PO 01/23/21 03/04/21 D3 10 mcg (400 unit) tablet cyclobenzaprine 5 mg tablet 5 mg PO QID PRN muscle spasm 01/23/21 03/04/21 fluticasone propionate 110 2 puff PO BID 01/23/21 03/04/21 mcg/actuation HFA aerosol inhaler (Flovent HFA) fluticasone propionate 50 1 spray intranasal BID 01/23/21 03/04/21 mcg/actuation nasal spray,suspension furosemide 20 mg tablet 20 mg PO QAM 01/23/21 03/04/21 melatonin 5 mg tablet 10 mg PO BEDTIME PRN 01/23/21 03/04/21 multivitamin-ferrous 1 tab PO QPM 01/23/21 03/04/21 fumarate-folic acid 18 mg-400 mcg tablet (Certavite-Antioxidant) quetiapine 50 mg tablet 50 mg PO BEDTIME 01/23/21 03/04/21 simethicone 80 mg chewable tablet 80 mg PO QID 01/23/21 03/04/21 tramadol 50 mg tablet 50 - 100 mg PO Q8H PRN moderate 01/23/21 03/04/21 pain Previous Rx's Medication Instructions Recorded omeprazole 20 mg capsule,delayed 20 mg PO BID 30 days #60 caps 10/23/20 release sucralfate 1 gram tablet 1 g PO TID #90 tabs 12/04/20 omeprazole 20 mg capsule,delayed 20 mg PO DAILY #30 caps 09/16/21 release aluminum-mag hydroxide-simethicone 10 ml PO TID PRN indigestion #355 06/30/22 400 mg-400 mg-40 mg/5 mL oral susp mL (Maalox Maximum Strength) ondansetron 4 mg disintegrating 4 mg PO Q8H PRN nausea and 06/30/22 tablet vomiting #20 tabs Allergies Allergy/AdvReac Type Severity Reaction Status Date / Time No Known Allergies Allergy Verified 06/29/22 21:49 Review of Systems Constitutional: Constitutional: Reports as per HPI, Denies chills, Denies fatigue, Denies fever(s) and Denies headache(s) ENT: Denies headache(s) Cardiovascular: Cardiovascular: Denies dyspnea Respiratory: Respiratory: Denies cough and Denies dyspnea Gastrointestinal: Gastrointestinal: Reports abdominal pain, Denies coffee ground emesis, Denies constipation, Denies diarrhea, Reports nausea and Reports vomiting Genitourinary: Genitourinary: Denies dysuria Neurologic: Denies headache(s) and Denies focal weakness Endocrine: Endocrine: Denies fatigue [facility] Past Medical History Medical History (Updated 06/30/22 @ 01:33 by Efraín Nunez) Acid reflux Asthma HIV (human immunodeficiency virus infection) HTN (hypertension) RUQ pain Surgical History History of breast surgery History of lithotripsy Family History Family History Father Lung cancer Prostate CA Mother Colon cancer Social History Social History Household Members: Family Alcohol intake: never Smoked in Last 30 Days: No Use of substances other than those prescribed or required for medical reasons: No Advance Directives: No Advance Directives Information Provided: No Patient : No Current occupational status: disabled Physical Exam ED Vital Signs: Vital Signs - 24 hr 06/29/22 21:47 06/29/22 23:49 Temperature 96.9 F Pulse Rate 66 64 Respiratory Rate 18 14 Blood Pressure 147/78 H 153/77 H Pulse Oximetry 99 98 Oxygen Delivery Method Room Air Room Air BMI result Body Mass Index 32.3 Const General: healthy appearing, comfortable, no acute distress, alert and awake Nutritional Appearance: well nourished Orientation/consciousness: patient oriented x3 HENMT Head: Yes normocephalic and Yes atraumatic Throat: Yes posterior oropharynx normal Eyes Eyelids: Yes eyelids normal Conjunctivae: conjunctivae normal Sclerae: sclerae normal Corneas: corneas normal Pupils: Equal, round and reactive pupils present EOM: EOMs intact bilaterally Neck Neck: Yes full ROM Resp Effort & Inspection: normal respiratory effort, able to speak in complete sentences, no audible wheezes and not labored Auscultation: clear to auscultation bilaterally Cardio Rate: regular rate Rhythm: regular rhythm GI Inspection: No distended Palpation (GI): Soft to palpation, not firm, Tenderness to palpation present (GI) (Tenderness in the left upper quadrant without guarding), no guarding and not rigid Auscultation: normoactive bowel sounds Skin General skin exam: no rashes or lesions noted and elasticity normal Neuro General: patient oriented x3 Cranial nerves: Yes Equal, round and reactive pupils present Cognition (Neuro): normal cognition Extrem Other: Moving all extremities well without any obvious deformities Course Reevaluation(s) Reevaluation #1: Patient reports feeling better after treatment, will discharge her with Maalox and Zofran Time: 01:32 Medications Administered Discontinued Medications Generic Name Dose Route Start Last Admin Trade Name Freq PRN Reason Stop Dose Admin Al Hydroxide/Mg Hydroxide 30 ml 06/29/22 23:53 06/30/22 00:42 Magnesium Hydrox/Alum Hydrox 30 Ml Oral.Susp PO 06/29/22 23:54 30 ml ONCE ONE Administration Famotidine 20 mg 06/29/22 23:53 06/30/22 00:42 Famotidine/Pf 20 Mg/2 Ml Vial IVPUSH 06/29/22 23:54 20 mg ONCE ONE Administration Sodium Chloride 1,000 mls @ 999 mls/hr 06/29/22 23:45 06/30/22 00:42 Ns IV 06/30/22 00:45 999 mls/hr .Q1H1M RICKEY Administration Lidocaine HCl 15 ml 06/29/22 23:53 06/30/22 00:42 Lidocaine Hcl Viscous 2 % 15 Ml Solution MUCOUS MEM 06/29/22 23:54 15 ml ONCE ONE Administration Ondansetron HCl 4 mg 06/29/22 23:53 06/30/22 00:42 Ondansetron Hcl 4 Mg/2 Ml Vial IVPUSH 06/29/22 23:54 4 mg ONCE ONE Administration Medical Decision Making Medical Decision Making [facility] Narrative: 56-year-old female with past medical history significant for GERD presents for evaluation of burning upper abdominal pain radiating into her chest. Patient's labs are within normal limits, she has no white count, no transaminitis. Patient's EKG is sinus rhythm with a rate of 71 beats per minute. No ST segment elevations or depressions. Most likely diagnosis is acid reflux/GERD. Will treat with GI cocktail, Pepcid and fluids given that she has had decreased oral intake for a week. Patient has appropriate GI follow-up in just over 1 week Differential Diagnosis GERD Gastroenteritis Peptic ulcer disease Chest pain ACS less likely Lab Data [facility] Lab Attestation statement: I reviewed the patient's lab results. 06/29/22 21:56 06/29/22 21:56 Labs: Lab Results 06/29/22 06/29/22 06/29/22 Range/Units 21:56 21:56 21:56 WBC 7.2 (4.8-10.8) X10*3/uL RBC 4.51 (4.20-5.50) X10*6/uL Hgb 13.7 (12.0-16.0) g/dl Hct 41.7 (37.0-47.0) % MCV 92.5 (80.0-98.0) fL MCH 30.4 (27.0-33.0) pg MCHC 32.9 (31.0-35.0) g/dl RDW 14.0 (11.0-16.0) % Plt Count 323 (160-400) X10*3/uL MPV 7.9 L (9.4-12.3) fL Immature Gran % (Auto) 0.1 (0.0-0.4) % Neut % (Auto) 61.9 (45-73) % Lymph % (Auto) 25.1 (20-40) % [place] % (Auto) 10.0 (2-11) % Eos % (Auto) 2.2 (0-4) % Baso % (Auto) 0.7 (0-2) % Lymph # (Auto) 1.8 (1.2-4.9) X10*3/uL [place] # (Auto) 0.7 (0.1-1.2) X10*3/uL Eos # (Auto) 0.2 (0.0-0.4) X10*3/uL Baso # (Auto) 0.1 (0.0-0.2) X10*3/uL Abs Immat Gran (auto) 0.01 (0.00-0.03) X10*3/uL Absolute Neuts (auto) 4.4 (2.0-8.3) x10*3/uL Absolute Nucleated RBC 0.000 (0.0-0.012) X10*3/uL Nucleated RBC % (auto) 0.0 (0.0-0.2) /100WBC Sodium 138 (135-145) mmol/L Potassium 3.7 (3.3-5.1) mmol/L Chloride 103 (96-108) mmol/L Carbon Dioxide 27 (22-29) mmol/L Anion Gap 12 (12-20) BUN 14 (9-16) mg/dL Creatinine 0.86 (0.5-1.4) mg/dL Estim Creat Clear Calc 54.6 Estimated GFR > 60 Random Glucose 88 (60-115) mg/dL Calcium 9.6 D (8.4-10.2) mg/dL Total Bilirubin 0.5 (0.0-1.0) mg/dL Direct Bilirubin 0.2 (0.0-0.5) mg/dL AST 20 (5-31) U/L ALT 18 (0-31) U/L Alkaline Phosphatase 76 (39-117) U/L Troponin I High Sens < 2.7 (<3.5-17.0) ng/L Total Protein 7.7 (6.5-8.0) g/dL Albumin 4.7 (3.5-5.0) g/dL Lipase 29 (8-78) U/L Discharge Plan Discharge Clinical Impression: Acid reflux Patient Disposition: Home, Self-Care Instructions: Gastroesophageal Reflux Disease (ED) Additional Instructions: You may use Maalox for breakthrough abdominal pain. Use Zofran for nausea or vomiting Drink lots of fluids Avoid spicy, greasy foods Follow-up with your GI doctor as planned Prescriptions: New alum-mag hydroxide-simeth [Maalox Maximum Strength] 400-400-40 mg/5 mL suspension 10 ml PO TID PRN (Reason: indigestion) Qty: 355 0RF ondansetron 4 mg tablet,disintegrating 4 mg PO Q8H PRN (Reason: nausea and vomiting) Qty: 20 0RF No Action omeprazole 20 mg capsule,delayed release(DR/EC) 20 mg PO BID 30 Days Qty: 60 6RF omeprazole 20 mg capsule,delayed release(DR/EC) 20 mg PO DAILY Qty: 30 0RF sucralfate 1 gram tablet 1 g PO TID Qty: 90 0RF Biktarvy 50-200-25 mg tablet 1 tab PO DAILY Certavite-Antioxidant 18-400 mg-mcg tablet 1 tab PO QPM melatonin 5 mg tablet 10 mg PO BEDTIME PRN calcium carbonate-vitamin D3 600 mg-10 mcg (400 unit) tablet 1 tab PO Flovent HFA 110 mcg/actuation HFA aerosol inhaler 2 puff PO BID quetiapine 50 mg tablet 50 mg PO BEDTIME furosemide 20 mg tablet 20 mg PO QAM amlodipine 10 mg tablet 10 mg PO QAM cyclobenzaprine 5 mg tablet 5 mg PO QID PRN (Reason: muscle spasm) tramadol 50 mg tablet 50 - 100 mg PO Q8H PRN (Reason: moderate pain) simethicone 80 mg tablet,chewable 80 mg PO QID albuterol sulfate [ProAir HFA] 90 mcg/actuation HFA aerosol inhaler 2 puff PO Q6H PRN fluticasone propionate 50 mcg/actuation spray,suspension 1 spray intranasal BID
[2022-06-30] MEDS: ondansetron HCL 4 MG/2 ML VIAL IVPUSH (00:42)
[2022-06-30] MEDS: Famotidine/PF 20 MG/2 ML VIAL IVPUSH (00:42)
[2022-06-30] MEDS: 0.9 % Sodium Chloride 1,000 ML 999 ML IV (00:42)
[2022-06-30] MEDS: Lidocaine HCl Viscous 2 % 15 ML SOLUTION MUCOUS MEM (00:42)
[2022-06-30] MEDS: Magnesium Hydrox/Alum Hydrox 30 ML ORAL.SUSP PO (00:42)
== END 2022-06-30 01:48 | disposition home or self-care (01) ==
PROVIDERS: Emergency Provider Internal Medicine; PCP Nurse Practitioner Primary Care
DX: K21.9 Gastro-esophageal reflux disease without esophagitis (principal); R42 Dizziness and giddiness; R07.89 Other chest pain; Z79.899 Other long term (current) drug therapy
CPT/HCPCS: 36415; 71046; 80048; 80076; 83690; 84484; 85025; 93005; 96361; 96374; 96375; 99284; 99285; J2405

== ENCOUNTER 2022-10-01 14:06 | Outpatient (REF) | payer MEDICAID, SELFPAY ==
[2022-10-01 16:05] LABS: MANUAL DIFF FLAG NO
[2022-10-01 16:11] LABS: Basophils Percent Auto 0.6 % (0-2); Eosinophils Absolute Auto 0.1 X10*3/uL (0.0-0.4); Eosinophils Percent Auto 1.2 % (0-4); Hematocrit 41.6 % (37.0-47.0); Hemoglobin 13.3 g/dl (12.0-16.0); Imm Gran Abs Auto 0.02 X10*3/uL (0.00-0.03); Imm Gran Pct Auto 0.3 % (0.0-0.4); Lymphocytes Absolute Auto 1.4 X10*3/uL (1.2-4.9); Mean Corpuscular Hemoglobin 30.6 pg (27.0-33.0); Mean Corpuscular Volume 95.6 fL (80.0-98.0); Mean Platelet Volume 8.8 fL (9.4-12.3); Monocytes Absolute Auto 0.7 X10*3/uL (0.1-1.2); Monocytes Percent Auto 10.1 % (2-11); Neutrophils Absolute Auto 4.3 x10*3/uL (2.0-8.3); Neutrophils Percent Auto 66.8 % (45-73); Platelet Count 348 X10*3/uL (160-400); Red Blood Count 4.35 X10*6/uL (4.20-5.50); Red Cell Distribution Width 13.9 % (11.0-16.0); White Blood Count 6.4 X10*3/uL (4.8-10.8)
[2022-10-01 16:20] LABS: Alanine Aminotransferase 16 U/L (0-31); Albumin Level 4.3 g/dL (3.5-5.0); Alkaline Phosphatase 75 U/L (39-117); Anion Gap 10 (12-20); Aspartate Amino Transferase 18 U/L (5-31); Bilirubin Total 0.3 mg/dL (0.0-1.0); Blood Urea Nitrogen 12 mg/dL (9-16); Carbon Dioxide 28 mmol/L (22-29); Chloride 107 mmol/L (96-108); Estimated Glomerular Filt Rate > 60; Glucose Random 87 mg/dL (60-115); Sodium 141 mmol/L (135-145); Total Protein 7.6 g/dL (6.5-8.0)
[2022-10-03 10:28] LABS: Absolute CD3 Count 988 cells/uL (840-3060); Absolute CD4 Count 652 cells/uL (490-1740); Absolute CD8 Count 358 cells/uL (180-1170); Absolute Lymphocytes 1399 cells/uL (850-3900); CD4 CD8 Ratio 1.82 (0.86-5.00); Percent CD3 Cells 71 % (57-85); Percent CD4 Cells 47 % (30-61); Percent CD8 Cells 26 % (12-42)
[2022-10-07 14:04] LABS: HIV RNA PCR Qn Copies NOT DETECTED copies/mL (NOT DETECTED)
== END 2022-10-01 14:07 | disposition home or self-care (01) ==
LOC: HO.HHCL 14:06
PROVIDERS: Visit Provider Internal Medicine
DX: B20 Human immunodeficiency virus [HIV] disease (principal)
CPT/HCPCS: 36415; 80053; 85025; 86359; 86360; 87536

== ENCOUNTER 2022-12-01 | Outpatient (REF) | payer MEDICAID, SELFPAY ==
[2022-12-03 20:37] LABS: HPV mRNA E6/E7 rflx Not Detected (Not Detected)
== END 2022-12-01 00:01 | disposition home or self-care (01) ==
LOC: HO.HHCLNP
PROVIDERS: Visit Provider Advanced Practice Midwife
DX: Z01.419 Encounter for gynecological examination (general) (routine) without abnormal findings (principal); B20 Human immunodeficiency virus [HIV] disease
CPT/HCPCS: 87624; 88112; 88142

== ENCOUNTER 2023-07-15 11:58 | Outpatient (REF) | payer MEDICAID, SELFPAY ==
[2023-07-15 13:51] LABS: MANUAL DIFF FLAG NO
[2023-07-15 14:02] LABS: Basophils Absolute Auto 0.1 X10*3/uL (0.0-0.2); Eosinophils Absolute Auto 0.1 X10*3/uL (0.0-0.4); Eosinophils Percent Auto 1.7 % (0-4); Hemoglobin 13.9 g/dl (12.0-16.0); Imm Gran Abs Auto 0.01 X10*3/uL (0.00-0.03); Imm Gran Pct Auto 0.2 % (0.0-0.4); Lymphocytes Absolute Auto 1.4 X10*3/uL (1.2-4.9); Lymphocytes Percent Auto 24.3 % (20-40); Mean Corpuscular HGB Conc 32.3 g/dl (31.0-35.0); Mean Corpuscular Hemoglobin 30.5 pg (27.0-33.0); Mean Corpuscular Volume 94.5 fL (80.0-98.0); Monocytes Absolute Auto 0.5 X10*3/uL (0.1-1.2); Monocytes Percent Auto 8.4 % (2-11); Neutrophils Absolute Auto 3.7 x10*3/uL (2.0-8.3); Neutrophils Percent Auto 64.4 % (45-73); Platelet Count 350 X10*3/uL (160-400); Red Blood Count 4.55 X10*6/uL (4.20-5.50); Red Cell Distribution Width 14.5 % (11.0-16.0); White Blood Count 5.7 X10*3/uL (4.8-10.8)
[2023-07-15 14:08] LABS: Alanine Aminotransferase 12 U/L (0-31); Albumin Level 4.3 g/dL (3.5-5.0); Alkaline Phosphatase 82 U/L (39-117); Anion Gap 14 (12-20); Aspartate Amino Transferase 16 U/L (5-31); Bilirubin Total 0.3 mg/dL (0.0-1.0); Blood Urea Nitrogen 9 mg/dL (9-16); Calcium 9.2 mg/dL (8.4-10.2); Carbon Dioxide 26 mmol/L (22-29); Chloride 106 mmol/L (96-108); Cholesterol 178 mg/dL (<200); Estimated Glomerular Filt Rate > 60; Glucose Random 112 mg/dL (60-115); HDL Cholesterol 62 mg/dL (>40); LDL Cholesterol Calculated 109 mg/dL (<100); Potassium 3.9 mmol/L (3.3-5.1); Sodium 142 mmol/L (135-145); Total Protein 7.3 g/dL (6.5-8.0); Triglycerides 35 mg/dL (<150)
[2023-07-15 14:56] LABS: Syphilis Screen Nonreactive (Nonreactive)
[2023-07-15 14:59] LABS: ~HepC Num1 14.75 S/CO (0.00-0.79); ~Hepatitis C Antibody Reactive (Nonreactive)
[2023-07-15 16:12] LABS: Reflex LDLD? No
[2023-07-16 11:48] LABS: Absolute CD3 Count 985 cells/uL (840-3060); Absolute CD4 Count 640 cells/uL (490-1740); Absolute CD8 Count 345 cells/uL (180-1170); Absolute Lymphocytes 1361 cells/uL (850-3900); CD4 CD8 Ratio 1.85 (0.86-5.00); Percent CD3 Cells 72 % (57-85); Percent CD4 Cells 47 % (30-61); Percent CD8 Cells 25 % (12-42)
[2023-07-17 14:08] LABS: HIV RNA PCR Qn Copies NOT DETECTED copies/mL (NOT DETECTED); HIV RNA PCR Qn Log Copies NOT DETECTED (NOT DETECTED)
[2023-07-18 15:34] LABS: HCV Log PCR <1.18 NOT DETECTED Log IU/mL (NOT DETECTED); HepC Viral Load <15 NOT DETECTED IU/mL (NOT DETECTED)
[2023-07-18 17:43] LABS: TS Negative Control Passed; TS Panel A 0; TS Panel B 0; TS Positive Control Passed; TSpotTB Negative (Negative)
== END 2023-07-15 11:59 | disposition home or self-care (01) ==
LOC: HO.HHCL 11:58
PROVIDERS: Visit Provider Internal Medicine
DX: B20 Human immunodeficiency virus [HIV] disease (principal)
CPT/HCPCS: 36415; 80053; 80061; 85025; 86359; 86360; 86481; 86780; 86803; 87522; 87536

== ENCOUNTER 2023-11-20 12:38 | Outpatient (REF) | payer MEDICAID, SELFPAY ==
[2023-11-20 13:39] LABS: Estimated Average Glucose 117 mg/dL; Hemoglobin A1C 126.0457 umol/L; Hemoglobin A1c % 5.7 % (<6.0)
[2023-11-20 16:59] LABS: TSH reflex Free T4 0.62 uIU/mL (0.32-4.0)
== END 2023-11-20 12:39 | disposition home or self-care (01) ==
LOC: HO.HHCL 12:38
PROVIDERS: Visit Provider Nurse Practitioner Primary Care
DX: R63.5 Abnormal weight gain (principal)
CPT/HCPCS: 36415; 83036; 84443

== ENCOUNTER 2023-11-25 08:19 | Outpatient (REF) | payer MEDICAID, SELFPAY | END 2023-11-25 08:20 | disposition home or self-care (01) | LOC: HO.HOSX 08:19 | PROVIDERS: Visit Provider Physician Assistant | DX: M25.572 Pain in left ankle and joints of left foot (principal); M77.52 Other enthesopathy of left foot and ankle | CPT/HCPCS: 73610; 99212 ==

== ENCOUNTER 2023-11-25 10:53 | Outpatient (AMB) | payer MEDICAID, SELFPAY ==
--- NOTE | 2023-11-25 10:58 | A.OFFVIS_ITS ---
Intake Visit Reasons: SPECIFICATIONS CHECKER- Acute LT ankle pain Intake Note: Lucia a 58 year old female who presents today for a new patient for an evaluation of left ankle pain. Patient reports pain at the medial aspect of ankle for about 3 months, denies injury. Her feet become swollen at the end of the day. She was told by her stone gang sawyer of having fluid in her ankle. Denies numbness or tingling. No other tx. Safety Clothing And Equipment Developer Required: Yes Safety Clothing And Equipment Developer Services: Safety Clothing And Equipment Developer Present Safety Clothing And Equipment Developer Name: Tonja ID#[id number] Allergies No Known Allergies Allergy (Verified 11/25/23 11:04) Medication List - Last Reviewed 11/25/23 by GARRICK Rios albuterol sulfate 90 mcg/actuation (ProAir HFA) 2 puffs PO Q6H PRN alum-mag hydroxide-simeth 400-400-40 mg/5 mL (Maalox Maximum Strength) 10 mL PO TID PRN amlodipine 10 mg PO QAM cajnsrpay-dqsepaxe-omxwozr ala 50-200-25 mg (Biktarvy) 1 tab PO DAILY calcium carbonate-vitamin D3 600 mg-10 mcg (400 unit) 1 tab PO cyclobenzaprine 5 mg PO QID PRN doxepin 10 mg PO BEDTIME fluticasone propionate 110 mcg/actuation (Flovent HFA) 2 puffs PO BID fluticasone propionate 50 mcg/actuation 1 spray intranasal BID furosemide 20 mg PO QAM lidocaine 5% patches topical melatonin 10 mg PO BEDTIME PRN ycoempvffxuk-krur-ixhcg acid 18-400 mg-mcg (Certavite-Antioxidant) 1 tab PO QPM omeprazole 20 mg PO DAILY quetiapine 50 mg PO BEDTIME risperidone 2 mg PO BEDTIME sucralfate 1 g PO TID tiotropium bromide 1.25 mcg/actuation (Spiriva Respimat) 2 puffs inhalation DAILY tramadol 50 - 100 mg PO Q8H PRN varenicline 1 mg PO BID HPI HPI SPECIFICATIONS CHECKER- Acute LT ankle pain: Details: 58-year-old female who presents to the office today with an performance test engineer for an evaluation of acute left ankle pain for about 3 months. She denies any previous injury on her foot. She currently states she has pain at the medial aspect of her ankle that is aggravated anytime throughout the day and with ambulation. She also reports her feet becomes swollen at the end of the day. She denies any numbness or tingling. She has not had any treatment in the past. She was seen by her stone gang sawyer who told her she has fluid in her ankle. She does not have a history of RA or gout. [facility] Medical History (Updated 11/25/23 @ 11:15 by Eric Santana PA-C) Acid reflux RUQ pain HTN (hypertension) Asthma HIV (human immunodeficiency virus infection) Surgical History History of lithotripsy History of breast surgery Family History Father Lung cancer Prostate CA Mother Colon cancer Social History (Updated 11/25/23 @ 11:06 by GARRICK Rios) Household Members: Family Alcohol intake: never Patient Tobacco Use Status: Never used Tobacco Current occupational status: disabled Review of Systems Const All systems reviewed & are unremarkable except as noted in HPI and below Physical Exam Const General: cooperative, healthy appearing, comfortable, no acute distress, well developed and alert Orientation/consciousness: patient oriented x3 HEENT Head: Yes normal to inspection, Yes normocephalic and Yes atraumatic Eyes General: appearance normal, both eyes and all related structures Resp Effort & Inspection: normal respiratory effort and able to speak in complete sentences Cardio Rate: regular rate Peripheral pulses: Peripheral pulses 2+ throughout GI Palpation (GI): Soft to palpation Skin Lesions: no lesions Rashes: no rashes Neuro General: patient oriented x3 Extrem Other: Left ankle: Normal to inspection with trace swelling over the lateral malleolus with tenderness along the soft tissues. No discomfort along the posterior aspect of the ankle, no deformity along the Achilles tendon, negative Tom?s. No pain along the syndesmosis or anterior tibia. No laxity, NVI. Results Reviewed Results Reviewed: Xrays were obtained in the office today and personally reviewed by me of the left ankle are negative for acute fracture or dislocations. Ankle mortise intact. Assessment & Plan Assessment & Plan (1) Left ankle tendonitis: Code(s): M77.52 - Other enthesopathy of left foot and ankle Category: Medical Plan We discussed options which include PT, NSAIDs and injections. The patient will defer on the injection today and proceed with PT and NSAIDs. She was fit for a lace up ankle brace in the office today. If symptoms persist, she will contact me for an injection, otherwise, PRN. Orders: Orders XR ankle LT min 3V Today M25.572 - Pain in left ankle and joints of left foot PT Evaluation and Treatment Today M77.52 - Other enthesopathy of left foot and ankle Medications: New celecoxib (Celebrex) 200 mg PO BID 60 caps 3RF 30 days Patient Instructions: Scribed for Eric Santana PA-C, by Fernando Peguero medical certification specialist, on 11/25/2023 at 11:00 AM EST.? I, Eric Santana PA-C, have personally reviewed and agree with the information entered by the scribe. Coding Level of Care Code New Pt Level 3 (42898) Complex EM visit Add On G2211 Diagnoses Left ankle tendonitis M77.52
== END 2023-11-25 11:52 | disposition home or self-care (01) ==
PROVIDERS: PCP Nurse Practitioner Primary Care; Visit Provider Physician Assistant
DX: M77.52 Other enthesopathy of left foot and ankle (principal)
CPT/HCPCS: 99204

== ENCOUNTER 2023-12-09 12:42 | Outpatient (RCR) | payer MEDICAID, SELFPAY ==
--- NOTE | 2023-12-09 13:59 | MHC.PT.EP ---
[facility] [place] Office [place] Office [place] Office [address] [phone] F: [phone] F: [phone] F: [phone] F: [phone] Physical Therapy Plan of Care Date of Evaluation: 12/09/23 Date of Surgery: Diagnosis: Left ankle tendonitis Assessment: Patient is a 58 year old R handed female who presents with s/s consistent with L ankle tendonitis, L ankle pain. She does not work but does like to stay active at home and in the community. Patient past medical history includes HIV.. Current impairments include pain, balance, ROM, strength, activity tolerance and functional mobility. Functional limitations include decreased ability to stand, walk, transfer, sleep and negotiate stairs. Patient is motivated with good rehab potential. Skilled PT will address impairments and functional limitations in order to achieve goals. Frequency and Duration: The patient will be seen 1x/week for 4 weeks Short Term Goals: I with HEP -2 weeks Full AROM - 2 weeks Swelling absent - 2 weeks E Commerce Director Goals: strenght 4+/5 grossly - 4 weeks Amb pain free 20 minutes - 4 weeks LEFS 40/80 - 4 weeks Treatment Plan: Modalities to reduce pain, spasms and effusion. Manual therapy to restore motion and function. Therapeutic exercise to improve strength and flexibility. Neuromuscular re-education for posture and balance. Therapeutic activities to return to functional activities of daily living. Electronically signed by: Vamshi Moreno PT Please sign and return to therapist. Thank you for your referral.
--- NOTE | 2024-03-23 13:56 | MHC.PT.DC ---
[facility] [place] Office [place] Office [place] Office [address] Kaia Brady [address] [facility] [phone] F: [phone] F: [phone] F: [phone] F: [phone] Physical Therapy Discharge Report Diagnosis: Left ankle tendonitis Date of Surgery: Date of Evaluation: 12/09/23 Date of Discharge: Treatments to Date: 1 Cancellations to Date: No Shows to Date: Discharge Status: Patient Elected to Stop Discharge Summary: Patient is a 58 year old R handed female who presents with s/s consistent with L ankle tendonitis, L ankle pain. She does not work but does like to stay active at home and in the community. Patient past medical history includes HIV.. Current impairments include pain, balance, ROM, strength, activity tolerance and functional mobility. Functional limitations include decreased ability to stand, walk, transfer, sleep and negotiate stairs. Patient is motivated with good rehab potential. Skilled PT will address impairments and functional limitations in order to achieve goals. Electronically signed by: Vamshi Moreno, PT Please sign and return to therapist. Thank you for your referral.
== END 2024-03-23 13:56 | disposition home or self-care (01) ==
LOC: HO.PTCHIC 12:42
PROVIDERS: PCP Nurse Practitioner Primary Care; Visit Provider Physician Assistant
DX: M77.52 Other enthesopathy of left foot and ankle (principal)
CPT/HCPCS: 97110; 97162

== ENCOUNTER 2023-12-17 | Outpatient (REF) | payer MEDICAID, SELFPAY ==
[2023-12-18 12:38] LABS: HPV 16,18/45 See PAP report
--- OUTSIDE RECORDS SUMMARY | 2024-02-01 10:27 | XMS_ITS | Continuity of Care Document ---
Author Organization [facility] ter Address [address] [place] [id number]- Care Team Providers Care Configuration Management Advisor Name Role Phone Mckenzie [place], Angela Clement Primary Care Physician Encounter [facility] ACCT R [id number] Date(s): 01/13/24 - 01/13/[address] [address]- Discharge Disposition: A-D/C Home Attending Physician: Dominique Grimes MD Admitting Physician: Dominique Grimes MD Referring Physician: Not on Staff, Referring MD Encounter Type: Disch ES Allergies, Adverse Reactions, Alerts No Known Allergies Immunizations Given and Recorded Vaccine Date Status Refusal Reason influenza virus vaccine, inactivated 1 02/21/16 Gi colby 1Early/Late Reason: Wan to Standard Admin Times Problem List Condition Confirmation Course Effective Dates Status Health St atus Informant HIV disease Confirmed Active Tubular adenoma of colon 1 Confirmed 10/01/21 Active 1repeat screening colonoscopy in 2028 Vital Signs Most recent to oldest [Reference Range]: 1 2 3 Height 150 cm (01/13/24 9:36 PM) 150 cm (01/13/24 5:20 PM) Weight 66 kg (01/13/24 9:36 PM) 66 kg (01/13/24 5:20 PM) Oxygen Saturation [94-100 %] 95 % (01/13/24 9:36 PM) 98 % (01/13/24 5:20 PM) 99 % (01/13/24 5:13 PM) Pulse Rate [55-90 bpm] 80 bpm (01/13/24 9:36 PM) 82 bpm (01/13/24 5:20 PM) 91 bpm *H* (01/13/24 5:13 PM) Body Mass Index [18.5-24.99 kg/m2] 29.33 kg/m2 *H* (01/13/24 9:36 PM) 29.33 kg/m2 *H* (01/13/24 5:20 PM) Blood Pressure [90-138/55-84 mm Hg] 137/74mm Hg (01/13/24 9:36 PM) 144/72mm Hg *H* (01/13/24 5:20 PM) Respiratory Rate [16-30 br/min] 16 br/min (01/13/24 9:36 PM) 16 br/min (01/13/24 8:45 PM) 18 br/min (01/13/24 5:20 PM) Temperature [96.8-100.4 DegF] 98.2 DegF (01/13/24 5:20 PM) Mode of Delivery (Oxygen) Room air (01/13/24 9:36 PM) Room air (01/13/24 5:13 PM) Blood pressure sites Arm, right (01/13/24 9:36 PM) Arm, left (01/13/24 5:20 PM) Temperature Route Oral (01/13/24 5:20 PM) Dry Weight 66 kg (01/13/24 9:36 PM) 66 kg (01/13/24 5:20 PM) Weight Obtained Via Patient/family state d (01/13/24 5:20 PM) Dry Weight Obtained Via Patient/family s tated (01/13/24 5:20 PM) Social History Social History Type Response Smoking Status Former smoker entered on: 01/18/15 Sex Sex Representation Female (finding) Note * Vikram SINGH, Gladys Yap: PERFORM Event Display: Patient Education Leaflets Authored Date: [id number] Multiple Documents ?? 250 ?? This page is FOR PRESCRIBERS Only, ? DO NOT GIVE TO THE PATIENT?? Physical Therapy Referral Program for Management of Pain In an effort to reduce narcotic use, some of our ED patients will benefit from a direct referral torehab care.?? [facility] will see INSURED patients and has a system in place to avoid sending follow up paperwork to the ED prescribers.? Note: Non-[facility] physical therapy services will probably NOT be able to handle ED generated PT referrals. ?? Patients should still follow up with their PCP as soon as possible regarding their ongoing care. Inform patients that [facility] will discuss insurance when they call.?? Some insurance plans limit the amount of PT a patient can receive each year. ?? Complete the FIRST PAGE of the patient???s referral sheet. Teller or write in diagnosis. M odify the timing for treatment, if needed. List any major precautions (i.e.?? Non-weight bearing limb), if needed. Sign, date and print your name at the bottom. ? Physical Therapy Referral Form Patient Instructions: You are being referred to physical therapy.?? This form is your referral and MUST be brought to your appointment. You need to call to set up your appointment. ?? This form can be used at any [facility] location.?? A list of locations is attached.?? 1)?? DIAGNOSIS/ICD-10 ([place] one) Cervicalgia: M54.2 ? Strain of muscle, fascia and tendon at neck level: S16.1XXD? Radiculopathy, cervical region: M54.12? Mid back pain: M54.9 ? Low back pain:?? M54.5 Strain of muscle, fascia and tendon of lower back: S39.012D Radiculopathy, lumbosacral region: M54.17 Other:? 2)? [? ]? Evaluate and Treat 2 Times/Week for 4 weeks as needed [? ]?Other: 3)? [? ]? No Precautions [? ]?Precautions: ?? I hereby certify these services as medically necessary for the patient???s plan of care. Physician???s Signature Date Physician Name (printed)? Locations You can call any location below.?? Tell them you were seen in a [facility] and have a referral form.?? Remember to bring your referral form with you to the appointment. MIGDALIA Vega [address]? MIGDALIA Rand [address] [address] [facility], [address]? [address] ? MIGDALIA Dean [address]? MIGDALIA Sheikh [address] [place] [address]? [address] ? [place] [address] [address] ? [place] [address]? [facility] [address] ? * Gladys Alvarado: PERFORM Event Display: Patient Education Leaflets Authored Date: [id number] Multiple Documents ?? [id number] Dolor de espalda (byron o cr??francois) El dolor de espalda es pedro de los problemas m??s comunes. Lo glass es que la mayor??a de las personas se siente mejor en noy a dos??semanas y muchas otras en pedro a dos meses. La mayor??a puede permanecer activa. Cada persona describe el dolor de un modo diferente, no todos sienten lo mismo. ??? El dolor puede ser byron, incisivo, punzante, gisselle, guillaume un calambre o ardiente. ??? Puedeempeorar con el movimiento, al pararse, al inclinarse, al levantar objetos, al sentarse o al caminar. ??? El dolor puede estar limitado a un punto o noy diane, o puede ser m??s generalizado. ??? Se puede hot die press operator hacia arriba, hacia el frente o hacia los brazos o piernas (ci??french). ??? Puede causarespasmos musculares. Muchas veces, los problemas mec??nicos con los m??sculos o la columna son los que producen el dolor. Por lo general, estos problemas mec??nicos se deben a noy lesi??n de los m??sculos o ligamentos. Algunas enfermedades pueden provocar dolor de espalda, padmini por lo general no son graves. Algunos problemas mec??nicos pueden ser los siguientes:? Actividad f??yumiko, guillaume deportes, ejercicios, trabajo o actividades normales ??? Esfuerzo excesivo, o levantar objetos, empujar o jalar incorrectamente o con demasiada agresividad ??? Girar, inclinarse o estirarse de forma repentina a causa de un accidente o por un movimiento accidental ??? Pamella postura ??? Estirarse o moverse incorrectamente, sin notar dolor en el momento ??? Pamella coordinaci??n, falta de ejercicio regular (consulte a oscar m??dico por michi karlo) ??? Enfermedad de disco intervertebral o artritis ??? Estr??s El dolor tambi??n puede asociarse con embarazo o enfermedades guillaume apendicitis, infecciones de la vejiga o los ri??ones, e infecciones p??lvicas. El dolor de espalda byron suele mejorar en noy a dos semanas. El dolor de espalda asociado a algunaafecci??n de los discos, a la artritis en las articulaciones vertebrales o al estrechamiento de la reducci??n del conducto hargrove (estenosis vertebral) puede volverse cr??francois y durar meses o a??os. A menos que haya tenido noy lesi??n f??yumiko, guillaume un accidente automovil??stico o noy ca??da, quiz??s no se realicen radiograf??as para la primera evaluaci??n del dolor de espalda. Si el dolor persiste y no responde al tratamiento m??dico, es posible que tenga que hacerse radiograf??as y otras pruebas. Cuidados en el hogar Procure seguir estas recomendaciones para el cuidado en el hogar: ??? Cuando est?? en la cama, trate de encontrar noy posici??n c??moda. Lo mejor es utilizar un colch??n firme. Intente acostarse de espalda con almohadas debajo de las rodillas. Tambi??n puede probarrecost??ndose de lado con las rodillas flexionadas hacia oscar pecho y noy almohada entre las rodillas. ??? Al principio, no intente estirar los puntos sensibles. Si hay tensi??n, no es glass guillaume cuando se estira despu??s de hacer ejercicio y no hay noy lesi??n. En esta ocasi??n, estirarse podr??a empeorarlo. ??? No permanezca sentado por per??odos prolongados, por ejemplo en viajes largos en autom??kashmir o de otro tipo. [place] causa m??s tensi??n en la parte baja de la espalda que estar de pie o caminando. ??? Nidhi las primeras 24 a 72??horas despu??s de noy lesi??n aguda o un ataque de dolor cr??francois de espalda, coloque noy compresa fr??a en la diane dolorida nidhi 20??minutos y despu??s qu??johnie nidhi 20??minutos. Abdulaziz esto nidhi 60 a 90??minutos, o varias veces al d??a. [place] reducir?? la hinchaz??n y el dolor. Envuelva la compresa fr??a con noy toalla barrett o un pl??stico para proteger la piel. ??? Puede comenzar aplic??ndose fr??o y luego aplicarse calor. El calor (de noy ducha caliente, de un ba??o caliente o de noy almohadilla t??rmica) reduce el dolor y da buenos resultadospara los espasmos musculares. Se puede aplicar calor sobre el ??mandy dolorida nidhi 20??minutos, luego retirarlo nidhi 20??minutos. Abdulaziz esto nidhi 60 a 90??minutos, o varias veces al d??a. No duerma sobre noy almohadilla t??rmica. Podr??a causarle quemaduras o da??os en los tejidos. ??? Tambi??n puede alternar los tratamientos de hielo y calor. Hable con oscar m??dico sobre el mejor tratamiento para el dolor de espalda en oscar tha. ??? Los masajes terap??uticos pueden ayudar a relajar los m??sculos sin estirarlos. ??? Tenga en cuenta los m??todos seguros para levantar objetos. No levante objetos pesados sin hacer un estiramiento previo. Medicamentos Hable con oscar m??dico antes de usar medicamentos, especialmente si tiene otros problemas m??dicos o est?? tomando otros medicamentos. ??? Puede usar medicamentos de venta socorro para controlar el dolorsiguiendo las instrucciones del frasco, a menos que le hayan recetado otro analg??sico. Si tiene enf ermedades cr??nicas, guillaume diabetes, disfunci??n hep??french o renal, ??lceras estomacales o hemorragias gastrointestinales, hable con oscar proveedor de atenci??n m??dica antes de jacob estos medicamentos. Tambi??n hable con oscar proveedor si jose anticoagulantes. ??? Tenga cuidado si le adriano medicamentos r ecetados, narc??ticos o medicamentos para los espasmos musculares. Pueden causar somnolencia o afectar la coordinaci??n, los reflejos y el juicio. No debe conducir ni operar maquinaria pesada mientras los jose. ?? Visita de seguimiento Asista a las citas de seguimiento con oscar proveedor de atenci??n m??dica o seg??n le hayan indicado.?? Si le tomaron radiograf??as, le informar??n los resultados nuevos que puedan afectar oscar atenci??n m??dica. ?? Cu??ndo llamar al?? 911 Llame al?? 911 si ocurre lo siguiente: ??? Dificultad para respirar ??? Confusi??n ??? Somnolencia o problemas para despertarse ??? Desmayos o p??rdida del conocimiento ??? Frecuencia card??izaiah r??pida o muy lenta ??? P??rdida de control del intestino o de la vejiga ?? Cu??ndo buscar atenci??n m??dica Llame a oscar proveedor de atenci??n m??dica de inmediato ante cualquiera de las siguientes situaciones:? El dolor empeora o se propaga a las piernas ??? Cambios en el control del intestino o de lavejiga ??? Fiebre ??? Walter en la orina ??? Debilidad o entumecimiento en noy o ambas piernas ??? Sensaci??n de entumecimiento en la diane genital o de la jimy ?? Last Reviewed Date: 2021 ?? [id number] [employer]. Todos los derechos reservados. Esta informaci??n no pretende sustituir la atenci??n m??dica profesional. S??lo oscar m??dico puede diagnosticar y tratar un problema de george. ?? * Vikram SINGH, Gladys Yap: PERFORM Event Display: Patient Education Leaflets Authored Date: [id number] Multiple Documents ?? [id number] Dolor del nervio ci??donte El dolor del nervio ci??donte es ony afecci??n que produce dolor en la parte baja de la espalda que se propaga a los gl??teos, la cadera y la pierna. En ocasiones, podr??a doler la pierna sin que hayadolor en la espalda. El dolor del nervio ci??donte se produce cuando un nervio hargrove est?? irritado o algo lo presiona al salir del conducto vertebral en la parte baja de la espalda. [place] suele suceder cuando un disco vertebral cercano est?? roto o deformado y hace presi??n sobre el nervio. El dolor del nervio ci??donte tambi??n puede deberse al estrechamiento del conducto vertebral (estenosis hargrove) o a un espasmo del m??sculo del gl??mary ellen por donde pasa el nervio ci??donte (m??sculo piriforme). Tambi??n se conoce guillaume radiculopat??a lumbar . El dolor del nervio ci??donte puede aparecer despu??s de noy torcedura o flexi??n repentina y forzada, guillaume en un accidente de autom??kashmir. Tambi??n puede aparecer despu??s de regina realizado un movimiento simple padmini extra??o. En ambos casos, tambi??n suele suceder un espasmo muscular. El espasmo muscular hace que el dolor sea peor. Un proveedor de atenci??n m??dica le diagnosticar?? el dolor del nervio ci??donte a partir de choco s??ntomas y un examen f??sico. A menos que haya tenido noy lesi??n producto de un accidente de autom??kashmir o noy ca??da, por lo general, no se suelen hacer radiograf??as en michi momento. [place] se debe a que los nervios y los discos de oscar espalda no pueden observarse en noy radiograf??a. Si el proveedor sospecha que hay un nervio comprimido en funci??n de choco antecedentes o de la exploraci??n, deber?? programar noy resonancia magn??french. Los estudios de conducci??n nerviosa y la electromiograf??a sonpruebas en los nervios que tambi??n pueden ayudar a detectar la causa del dolor en los nervios. Lossignos de nervio comprimido incluyen la p??rdida de fuerza o reflejos en noy pierna. La mayor??a de los casos de dolor del nervio ci??donte se alivian con medicamentos, ejercicios, y fisioterapia. Si los s??ntomas persisten despu??s del tratamiento m??dico, quiz?? necesite cirug??a o inyecciones en la parte baja de la espalda. [place] andrew??a seg??n la gravedad de los s??ntomas. Cuidados en el hogar Siga estos consejos: ??? Hoang pronto guillaume le sea posible, comience a sentarse o caminar. [place] le ayudar?? a evitar los problemas que se producen por estar mucho tiempo en cama. ??? Mientras est?? en la cama, intente encontrar noy posici??n que le resulte c??moda. Lo mejor es utilizar un colch??n firme. Intente acostarse de espalda con almohadas debajo de las rodillas. Tambi??n puede probar recost??ndose de lado con las rodillas flexionadas hacia oscar pecho y noy almohada entre las rodillas. ??? Nopermanezca sentado por per??odos prolongados. Eso causa m??s tensi??n en la parte inferior de la espalda que estar de pie o caminar. ??? Use el calor de noy ducha caliente, un ba??o caliente en la shama o noy almohadilla t??rmica para aliviar el dolor. El masaje tambi??n puede ayudarle. Asimismo, puede probar el uso de noy compresa de hielo. Para hacer oscar propia compresa de hielo, coloque cubos dehielo en noy bolsa pl??stica que pueda cerrarse. Envuelva la bolsa en noy toalla delgada. Pruebe tanto el calor guillaume el fr??o para enid cu??l le funciona mejor. Use el m??todo que mejor resultado le d? ? nidhi 20 minutos varias veces al d??a. ??? Puede usar paracetamol o ibuprofeno para aliviar el dolor, a menos que le hayan recetado otro medicamento para calmar el dolor. Nota: Si tiene noy enfermedad cr??tejas del h??gado o de los ri??ones, consulte al proveedor de atenci??n m??dica antes de usar estos medicamentos. Tambi??n hable con oscar proveedor si adams tenido noy ??lcera de est??roger o hemorragia en el tubo digestivo. ??? Utilice un m??todo seguro para levantar objetos. No levante nada quepese m??s de lo indicado hasta que el dolor haya desaparecido por completo. ?? Atenci??n de seguimiento Realice el seguimiento con oscar proveedor de atenci??n m??dica o seg??n lo que michi le haya indicado.Es posible que necesite fisioterapia o m??s pruebas. Si le chin hecho radiograf??as, las evaluar?? un radi??logo. Le informar??n de los nuevos resultadosque puedan afectar oscar atenci??n m??dica. ?? Cu??ndo buscar atenci??n m??dica Llame a oscar proveedor de atenci??n m??dica de inmediato ante cualquiera de las siguientes situaciones: ??? Dolor que empeora incluso despu??s de jacob el medicamento recetado ??? Debilidad o entumecimiento en noy o ambas piernas o en la cadera ??? Sensaci??n de entumecimiento en la diane genital o laingle ??? No puede controlar choco intestinos o oscar vejiga ??? Fiebre de 100.4?F??(38?C) o superior, o seg??n le haya indicado el proveedor ??? Enrojecimiento o hinchaz??n en la espalda o la columna vertebral? Last Reviewed Date: 2021 ?? [id number] [employer]. Todos los derechos reservados. Esta informaci??n no pretende sustituir la atenci??n m??dica profesional. S??lo oscar m??dico puede diagnosticar y tratar un problema de george. ?? Patient Care team information Care Team Personnel Name: Angela Rincon NP Position: [facility] Outreach Member Role: PCP Address: [address] [place] [address] Telecom: Care Team Related Persons Name: CHELITA MCCURDY Name: ROGER CALDERON Insurance Providers Guarantor name: CHICHO CALDERON Health Plan Information #: 1 Payer: [employer] Member Number: [id number] Policy Number: NA Group Number: NA Health Plan Information #: 2 Payer: [employer] Member Number: [id number] Policy Number: NA Group Number: NA
== END 2023-12-17 00:01 | disposition home or self-care (01) ==
LOC: HO.LNP
PROVIDERS: Visit Provider Advanced Practice Midwife
DX: Z12.4 Encounter for screening for malignant neoplasm of cervix (principal); Z11.51 Encounter for screening for human papillomavirus (HPV)
CPT/HCPCS: 87624; 88112; 88175

== ENCOUNTER 2024-01-06 22:45 | Emergency (ER) | payer MEDICAID, SELFPAY ==
--- NOTE | 2024-01-06 | ECG_ITS ---
Test Reason : PALPITATIONS/ HI BP Blood Pressure : / mmHG Vent. Rate : 079 BPM Atrial Rate : 079 BPM P-R Int : 152 ms QRS Dur : 090 ms QT Int : 380 ms P-R-T Axes : 044 -14 033 degrees QTc Int : 435 ms Normal sinus rhythm Normal ECG When compared with ECG of 29-JUN-2022 21:27, No significant change was found Referred By: Generic ED Physician Electronically Signed By:TOM MEANS
[2024-01-06 22:47] VITALS: BP 110/70; PULSE 82; O2SAT 100
[2024-01-06 22:50] VITALS: BP 122/90; PULSE 83; RESP 18; TEMP 36.5; O2SAT 95; BMI 37.9
[2024-01-06 23:15] LABS: Hematocrit 39.9 % (37.0-47.0); Hemoglobin 13.3 g/dl (12.0-16.0); Mean Corpuscular HGB Conc 33.3 g/dl (31.0-35.0); Mean Corpuscular Hemoglobin 30.4 pg (27.0-33.0); Mean Corpuscular Volume 91.1 fL (80.0-98.0); Mean Platelet Volume 8.5 fL (9.4-12.3); Platelet Count 314 X10*3/uL (160-400); Red Blood Count 4.38 X10*6/uL (4.20-5.50); Red Cell Distribution Width 14.4 % (11.0-16.0); White Blood Count 8.1 X10*3/uL (4.8-10.8)
[2024-01-06 23:44] LABS: Anion Gap 16 (12-20); Blood Urea Nitrogen 14 mg/dL (9-16); Calcium 10.2 mg/dL (8.4-10.2); Carbon Dioxide 27 mmol/L (22-29); Chloride 104 mmol/L (96-108); Creatinine Clr Calc Pharmacy 52.2; Estimated Glomerular Filt Rate 59; Glucose Random 100 mg/dL (60-115); Magnesium 2.1 mg/dL (1.6-2.6); Potassium 4.2 mmol/L (3.3-5.1); Sodium 143 mmol/L (135-145)
[2024-01-07 00:50] VITALS: BP 147/84; PULSE 79; RESP 16
[2024-01-07] MEDS: Ibuprofen 600 MG TABLET PO (01:09)
--- NOTE | 2024-01-07 01:39 | ED_ITS ---
HPI - General Adult General Chief complaint: General Medical Stated complaint: Dizziness and anxiety Time Seen by Provider: 01/07/24 01:39 Source: patient Mode of arrival: EMS Limitations: no limitations History of Present Illness ED Provider: hung HERNANDEZ narrative: Patient's history of hypotension felt anxious and noticed a blood pressure was in 180 took her medications by the time EMS reached blood pressure was 140s in the ER was 122/86 pulse rate of 83 patient is feeling much better after arrival no chest felt like he had a panic attack Related Data Home Medications ?Medication ?Instructions ?Recorded ?Confirmed albuterol sulfate 90 mcg/actuation 2 puff PO Q6H PRN 01/23/21 11/25/23 aerosol inhaler (ProAir HFA) amlodipine 10 mg tablet 10 mg PO QAM 01/23/21 11/25/23 bictegravir 50 mg-emtricitabine 1 tab PO DAILY 01/23/21 11/25/23 200 mg-tenofovir alafenam 25 mg tablet (Biktarvy) calcium 600 mg (as 1 tab PO 01/23/21 11/25/23 carbonate)-vitamin D3 10 mcg (400 unit) tablet cyclobenzaprine 5 mg tablet 5 mg PO QID PRN muscle spasm 01/23/21 11/25/23 fluticasone propionate 110 2 puff PO BID 01/23/21 11/25/23 mcg/actuation HFA aerosol inhaler (Flovent HFA) fluticasone propionate 50 1 spray intranasal BID 01/23/21 11/25/23 mcg/actuation nasal spray,suspension furosemide 20 mg tablet 20 mg PO QAM 01/23/21 11/25/23 melatonin 5 mg tablet 10 mg PO BEDTIME PRN 01/23/21 11/25/23 multivitamin-ferrous 1 tab PO QPM 01/23/21 11/25/23 fumarate-folic acid 18 mg-400 mcg tablet (Certavite-Antioxidant) quetiapine 50 mg tablet 50 mg PO BEDTIME 01/23/21 11/25/23 tramadol 50 mg tablet 50 - 100 mg PO Q8H PRN moderate 01/23/21 11/25/23 pain doxepin 10 mg capsule 10 mg PO BEDTIME 11/25/23 lidocaine 5 % topical patch patch topical 11/25/23 risperidone 2 mg tablet 2 mg PO BEDTIME 11/25/23 tiotropium bromide 1.25 2 puff inhalation DAILY 11/25/23 mcg/actuation mist for inhalation (Spiriva Respimat) varenicline 1 mg tablet 1 mg PO BID 11/25/23 Previous Rx's ?Medication ?Instructions ?Recorded sucralfate 1 gram tablet 1 g PO TID #90 tabs 12/04/20 omeprazole 20 mg capsule,delayed 20 mg PO DAILY #30 caps 09/16/21 release aluminum-mag hydroxide-simethicone 10 ml PO TID PRN indigestion #355 06/30/22 400 mg-400 mg-40 mg/5 mL oral susp mL (Maalox Maximum Strength) celecoxib 200 mg capsule (Celebrex) 200 mg PO BID 30 days #60 caps 11/25/23 Allergies Allergy/AdvReac Type Severity Reaction Status Date / Time No Known Allergies Allergy Verified 01/06/24 22:56 Review of Systems 2 Review of Systems: Yes all other systems are reviewed and are negative [facility] Past Medical History Medical History Acid reflux RUQ pain HTN (hypertension) Asthma HIV (human immunodeficiency virus infection) Surgical History History of lithotripsy History of breast surgery Family History Family History Father Lung cancer Prostate CA Mother Colon cancer Social History Social History Household Members: Family Alcohol intake: never Patient Tobacco Use Status: Never used Tobacco Smoked in Last 30 Days: No Use of substances other than those prescribed or required for medical reasons: No Advance Directives: No Advance Directives Information Provided: Yes Patient : No Current occupational status: disabled Physical Exam ED Vital Signs: Vital Signs - 24 hr 01/06/24 22:50 01/07/24 00:50 01/07/24 02:42 Temperature 97.7 F 97.9 F Pulse Rate 83 79 67 Respiratory Rate 18 16 18 Blood Pressure 122/90 H 147/84 H 132/86 Pulse Oximetry 95 97 Oxygen Delivery Method Room Air 01/07/24 02:45 Temperature 97.9 F Pulse Rate 67 Respiratory Rate 18 Blood Pressure 132/86 Pulse Oximetry 97 Oxygen Delivery Method BMI result Body Mass Index 37.9 Appearance: Alert. Oriented X3. No acute distress. Eyes: PERRLA, No Nystagmus ENT: Pharynx normal. Oral Mucosa moist Neck: Normal inspection. Neck supple. CVS: Normal heart rate and rhythm. Pulses normal. Respiratory: No respiratory distress. Equal air entry bilateral, no wheezing/rales/rhonchi Abdomen: Soft and nontender. Bowel sounds are present, no mass palpable, no CVA tenderness Skin: Skin warm and dry. Normal skin color. Normal skin turgor. Extremities: No lower extremity edema. No calf tenderness Neuro: Oriented X 3. No motor deficit. No sensory deficit.No cerebellar signs , cranial nerves II-XII intact Medications Administered Discontinued Medications Generic Name Dose Route Start Last Admin Trade Name Freq PRN Reason Stop Dose Admin Ibuprofen 600 mg 01/07/24 00:51 01/07/24 01:09 Ibuprofen 600 Mg Tablet PO 01/07/24 00:52 600 mg ONCE ONE Administration Medical Decision Making Medical Decision Making [facility] Narrative: Patient likely with panic/anxiety attack vitals stable pressure improved stay in the ER advised to follow with PCP Lab Data MDM Lab Attestation statement: I reviewed the patient's lab results. 01/06/24 23:09 01/06/24 23:09 Labs: Lab Results 01/06/24 Range/Units 23:09 WBC 8.1 (4.8-10.8) X10*3/uL RBC 4.38 (4.20-5.50) X10*6/uL Hgb 13.3 (12.0-16.0) g/dl Hct 39.9 (37.0-47.0) % MCV 91.1 (80.0-98.0) fL MCH 30.4 (27.0-33.0) pg MCHC 33.3 (31.0-35.0) g/dl RDW 14.4 (11.0-16.0) % Plt Count 314 (160-400) X10*3/uL MPV 8.5 L (9.4-12.3) fL Absolute Nucleated RBC 0.000 (0.0-0.012) X10*3/uL Nucleated RBC % (auto) 0.0 (0.0-0.2) /100WBC Sodium 143 (135-145) mmol/L Potassium 4.2 (3.3-5.1) mmol/L Chloride 104 (96-108) mmol/L Carbon Dioxide 27 (22-29) mmol/L Anion Gap 16 (12-20) BUN 14 (9-16) mg/dL Creatinine 0.96 (0.5-1.4) mg/dL Estim Creat Clear Calc 52.2 Estimated GFR 59 Random Glucose 100 (60-115) mg/dL Calcium 10.2 D (8.4-10.2) mg/dL Magnesium 2.1 (1.6-2.6) mg/dL Independent Interpretation I performed an independent interpretation of an: EKG Interpretation: Normal sinus rhythm heart rate 79 beats per minute normal intervals normal axis no acute ST T wave changes no acute ischemia Discharge Plan Discharge Clinical Impression: Anxiety, Essential hypertension Patient Disposition: Home, Self-Care Instructions: Hypertension (ED), Anxiety (ED) Additional Instructions: Continue take your medication for blood pressure as prescribed Follow with your PCP blood pressure continues to be elevated Normal blood pressure should be less than 140/90 Prescriptions: No Action omeprazole 20 mg capsule,delayed release(DR/EC) 20 mg PO DAILY Qty: 30 0RF sucralfate 1 gram tablet 1 g PO TID Qty: 90 0RF alum-mag hydroxide-simeth [Maalox Maximum Strength] 400-400-40 mg/5 mL suspension 10 ml PO TID PRN (Reason: indigestion) Qty: 355 0RF Biktarvy 50-200-25 mg tablet 1 tab PO DAILY Certavite-Antioxidant 18-400 mg-mcg tablet 1 tab PO QPM melatonin 5 mg tablet 10 mg PO BEDTIME PRN calcium carbonate-vitamin D3 600 mg-10 mcg (400 unit) tablet 1 tab PO Flovent HFA 110 mcg/actuation HFA aerosol inhaler 2 puff PO BID quetiapine 50 mg tablet 50 mg PO BEDTIME furosemide 20 mg tablet 20 mg PO QAM amlodipine 10 mg tablet 10 mg PO QAM cyclobenzaprine 5 mg tablet 5 mg PO QID PRN (Reason: muscle spasm) tramadol 50 mg tablet 50 - 100 mg PO Q8H PRN (Reason: moderate pain) albuterol sulfate [ProAir HFA] 90 mcg/actuation HFA aerosol inhaler 2 puff PO Q6H PRN fluticasone propionate 50 mcg/actuation spray,suspension 1 spray intranasal BID doxepin 10 mg capsule 10 mg PO BEDTIME lidocaine 5 % adhesive patch,medicated topical celecoxib [Celebrex] 200 mg capsule 200 mg PO BID 30 Days Qty: 60 3RF risperidone 2 mg tablet 2 mg PO BEDTIME varenicline 1 mg tablet 1 mg PO BID Spiriva Respimat 1.25 mcg/actuation mist 2 puff inhalation DAILY Interventions: ED Discharge Assessment Last Done: 01/07/24 02:45 Discharge Date/Time: 01/07/24 02:39 Print Language: Latvian
[2024-01-07 02:42] VITALS: BP 132/86; PULSE 67; RESP 18; TEMP 36.6; O2SAT 97
[2024-01-07 02:45] VITALS: BP 132/86; PULSE 67; RESP 18; TEMP 36.6; O2SAT 97
== END 2024-01-07 02:39 | disposition home or self-care (01) ==
PROVIDERS: Emergency Provider Internal Medicine; PCP Nurse Practitioner Primary Care
DX: F41.9 Anxiety disorder, unspecified (principal); I10 Essential (primary) hypertension; B20 Human immunodeficiency virus [HIV] disease; J45.909 Unspecified asthma, uncomplicated; Z79.899 Other long term (current) drug therapy
CPT/HCPCS: 36415; 80048; 83735; 85027; 93005; 99283; 99284

== ENCOUNTER → 2024-01-06 22:54 | Outpatient (BNV) | payer MEDICAID, SELFPAY | PROVIDERS: Emergency Provider Internal Medicine; PCP Nurse Practitioner Primary Care; Visit Provider Internal Medicine | DX: R00.2 Palpitations (principal) | CPT/HCPCS: 93010 ==

== ENCOUNTER 2024-02-09 11:25 | Outpatient (REF) | payer MEDICAID, SELFPAY ==
--- NOTE | ~2024-02-09 | MM_ITS ---
EXAMINATION: MM SCREENING DIGITAL BREAST TOMOSYNTHESIS, BILATERAL CLINICAL INFORMATION: Screening. Asymptomatic. History of right breast cancer post lumpectomy in 2009. COMPARISON: Mammography: Comparison is made with available priors TECHNIQUE: Digital breast mammography with tomosynthesis is performed in both the craniocaudal and mediolateral oblique views along with computer-aided detection (CAD). FINDINGS: The breasts are heterogeneously dense, which may obscure small masses (ACR BI-RADS breast composition Category c). Right: Post lumpectomy changes in the right breast are stable. There are no significant masses, abnormal calcifications, or other abnormalities. Left: New grouped calcifications in the retroareolar region middle and posterior depth. Asymmetry superior breast posterior depth on MLO view. No other suspicious abnormal findings. MM/MM tomosynthesis screening BI IMPRESSION: Additional imaging is recommended ASSESSMENT: BI-RADS BI-RADS 0 - Incomplete: Needs additional Imaging. RECOMMENDATION: 1. Additional views of the left breast 2. Targeted ultrasound if warranted after review of the additional views. 3. Radiology department staff will contact the patient for additional imaging. Additional Imaging required This examination should not preclude the clinical evaluation of a suspicious palpable abnormality. This patient's information was entered into a reminder system with a target due date for their next mammogram. Electronically signed by: Madeleine Boateng DO 02/09/2024 12:07 PM EDILBERTO
== END 2024-02-09 11:26 | disposition home or self-care (01) ==
LOC: HO.MAMMO 11:25
PROVIDERS: PCP Nurse Practitioner Primary Care; Visit Provider Nurse Practitioner Primary Care
DX: Z12.31 Encounter for screening mammogram for malignant neoplasm of breast (principal)
CPT/HCPCS: 77063; 77067

== ENCOUNTER → 2024-02-09 11:45 | Outpatient (BNV) | payer MEDICAID, SELFPAY | PROVIDERS: PCP Nurse Practitioner Primary Care; Visit Provider Internal Medicine | DX: Z12.31 Encounter for screening mammogram for malignant neoplasm of breast (principal) | CPT/HCPCS: 77063; 77067 ==

== ENCOUNTER 2024-02-22 12:22 | Outpatient (REF) | payer MEDICAID, SELFPAY ==
[2024-02-22 13:09] LABS: MANUAL DIFF FLAG NO
[2024-02-22 13:18] LABS: Basophils Absolute Auto 0.1 X10*3/uL (0.0-0.2); Basophils Percent Auto 0.8 % (0-2); Eosinophils Absolute Auto 0.1 X10*3/uL (0.0-0.4); Eosinophils Percent Auto 1.6 % (0-4); Hematocrit 39.3 % (37.0-47.0); Hemoglobin 12.7 g/dl (12.0-16.0); Imm Gran Abs Auto 0.02 X10*3/uL (0.00-0.03); Imm Gran Pct Auto 0.3 % (0.0-0.4); Lymphocytes Absolute Auto 1.7 X10*3/uL (1.2-4.9); Lymphocytes Percent Auto 26.5 % (20-40); Mean Corpuscular HGB Conc 32.3 g/dl (31.0-35.0); Mean Corpuscular Hemoglobin 29.4 pg (27.0-33.0); Mean Platelet Volume 8.6 fL (9.4-12.3); Monocytes Absolute Auto 0.7 X10*3/uL (0.1-1.2); Monocytes Percent Auto 11.3 % (2-11); Neutrophils Absolute Auto 3.8 x10*3/uL (2.0-8.3); Neutrophils Percent Auto 59.5 % (45-73); Platelet Count 383 X10*3/uL (160-400); Red Blood Count 4.32 X10*6/uL (4.20-5.50); Red Cell Distribution Width 14.1 % (11.0-16.0); White Blood Count 6.3 X10*3/uL (4.8-10.8)
[2024-02-22 13:34] LABS: Alanine Aminotransferase 24 U/L (0-31); Albumin Level 4.3 g/dL (3.5-5.0); Alkaline Phosphatase 91 U/L (39-117); Anion Gap 9 (12-20); Aspartate Amino Transferase 24 U/L (5-31); Bilirubin Total 0.2 mg/dL (0.0-1.0); Blood Urea Nitrogen 13 mg/dL (9-16); Calcium 9.4 mg/dL (8.4-10.2); Carbon Dioxide 29 mmol/L (22-29); Chloride 108 mmol/L (96-108); Estimated Glomerular Filt Rate > 60; Glucose Random 69 mg/dL (60-115); Potassium 4.1 mmol/L (3.3-5.1); Sodium 142 mmol/L (135-145); Total Protein 7.6 g/dL (6.5-8.0)
[2024-02-23 04:56] LABS: HBS Num1 77.99 mIU/mL (0-7.99); HBc Num1 5.27 S/CO (0.00-0.79); HBsAGNum1 0.33 S/CO (0.00-0.99); Hepatitis B Surface Antigen Negative (Negative); ~Hepatitis B Surface Antibody REACTIVE (Nonreactive)
[2024-02-23 04:57] LABS: Hepatitis A Antibody IgG REACTIVE (Nonreactive); ~Hepatitis A Antibody IgG 11.57 S/CO (0.00-0.99)
[2024-02-23 05:30] LABS: HBc Num2 5.35 S/CO; HBc Num3 5.34 S/CO; Hepatitis B Core Antibody Reactive (Nonreactive)
[2024-02-24 18:03] LABS: HIV RNA PCR Qn Copies NOT DETECTED copies/mL (NOT DETECTED); HIV RNA PCR Qn Log Copies NOT DETECTED (NOT DETECTED)
[2024-02-25 18:14] LABS: Absolute CD3 Count 1212 cells/uL (840-3060); Absolute CD4 Count 788 cells/uL (490-1740); Absolute CD8 Count 426 cells/uL (180-1170); Absolute Lymphocytes 1627 cells/uL (850-3900); CD4 CD8 Ratio 1.85 (0.86-5.00); Percent CD3 Cells 74 % (57-85); Percent CD4 Cells 48 % (30-61); Percent CD8 Cells 26 % (12-42)
== END 2024-02-22 12:23 | disposition home or self-care (01) ==
LOC: HO.HHCL 12:22
PROVIDERS: Visit Provider Internal Medicine
DX: Z21 Asymptomatic human immunodeficiency virus [HIV] infection status (principal); Z11.59 Encounter for screening for other viral diseases; Z72.89 Other problems related to lifestyle
CPT/HCPCS: 36415; 80053; 85025; 86359; 86360; 86704; 86706; 86708; 87340; 87536

== ENCOUNTER 2024-03-23 16:32 | Emergency (ER) | payer MEDICAID, SELFPAY ==
[2024-03-23 17:10] VITALS: BP 179/69; PULSE 83; RESP 20; TEMP 36.6; O2SAT 98; BMI 38.0
--- NOTE | 2024-03-23 17:11 | ED.LOWEXIN ---
HPI - Extremity Injury (Lower) General Chief Complaint: Extremity Injury, Lower Stated Complaint: ? L leg blood clot Related Data Home Medications ?Medication ?Instructions ?Recorded ?Confirmed albuterol sulfate 90 mcg/actuation 2 puff PO Q6H PRN 01/23/21 11/25/23 aerosol inhaler (ProAir HFA) amlodipine 10 mg tablet 10 mg PO QAM 01/23/21 11/25/23 bictegravir 50 mg-emtricitabine 1 tab PO DAILY 01/23/21 11/25/23 200 mg-tenofovir alafenam 25 mg tablet (Biktarvy) calcium 600 mg (as 1 tab PO 01/23/21 11/25/23 carbonate)-vitamin D3 10 mcg (400 unit) tablet cyclobenzaprine 5 mg tablet 5 mg PO QID PRN muscle spasm 01/23/21 11/25/23 fluticasone propionate 110 2 puff PO BID 01/23/21 11/25/23 mcg/actuation HFA aerosol inhaler (Flovent HFA) fluticasone propionate 50 1 spray intranasal BID 01/23/21 11/25/23 mcg/actuation nasal spray,suspension furosemide 20 mg tablet 20 mg PO QAM 01/23/21 11/25/23 melatonin 5 mg tablet 10 mg PO BEDTIME PRN 01/23/21 11/25/23 multivitamin-ferrous 1 tab PO QPM 01/23/21 11/25/23 fumarate-folic acid 18 mg-400 mcg tablet (Certavite-Antioxidant) quetiapine 50 mg tablet 50 mg PO BEDTIME 01/23/21 11/25/23 tramadol 50 mg tablet 50 - 100 mg PO Q8H PRN moderate 01/23/21 11/25/23 pain doxepin 10 mg capsule 10 mg PO BEDTIME 11/25/23 lidocaine 5 % topical patch patch topical 11/25/23 risperidone 2 mg tablet 2 mg PO BEDTIME 11/25/23 tiotropium bromide 1.25 2 puff inhalation DAILY 11/25/23 mcg/actuation mist for inhalation (Spiriva Respimat) varenicline tartrate 1 mg tablet 1 mg PO BID 11/25/23 Previous Rx's ?Medication ?Instructions ?Recorded sucralfate 1 gram tablet 1 g PO TID #90 tabs 12/04/20 omeprazole 20 mg capsule,delayed 20 mg PO DAILY #30 caps 09/16/21 release aluminum-mag hydroxide-simethicone 10 ml PO TID PRN indigestion #355 06/30/22 400 mg-400 mg-40 mg/5 mL oral susp mL (Maalox Maximum Strength) celecoxib 200 mg capsule (Celebrex) 200 mg PO BID 30 days #60 caps 11/25/23 cephalexin 500 mg capsule 500 mg PO QID 7 days #28 caps 03/26/24 Allergies Allergy/AdvReac Type Severity Reaction Status Date / Time No Known Allergies Allergy Verified 03/26/24 12:10 [facility] Past Medical History Medical History Acid reflux RUQ pain HTN (hypertension) Asthma HIV (human immunodeficiency virus infection) Surgical History History of lithotripsy History of breast surgery Family History Family History Father Lung cancer Prostate CA Mother Colon cancer Social History Social History Household Members: Family Alcohol intake: never Patient Tobacco Use Status: Never used Tobacco Advance Directives: No Advance Directives Information Provided: No Do you have a plan to hurt others: No Plan Current occupational status: disabled Physical Exam Vital Signs: Vital Signs: Last Vital Signs Temp 97.8 F 03/23/24 17:10 Pulse 83 03/23/24 17:10 Resp 20 03/23/24 17:10 BP 179/69 H 03/23/24 17:10 Pulse Ox 98 03/23/24 17:10 O2 Del Method Room Air 03/23/24 17:10 BMI result Body Mass Index 38.0 Course Course Course Narrative: This is a Rapid Medical Exam performed in triage by Flora Akers PA-C. Full HPI, ROS and PE to be performed by primary ED provider. 58-year-old female with a past medical history of CKD, recent left lower extremity vein procedure, presenting to the ED c/o left lower extremity pain and swelling x7 days. Denies chest pain or shortness of breath PE: +LLE pitting edema & ttp. Neurovascularly intact distally Plan: Ultrasound Discharge Plan Discharge Clinical Impression: Left leg pain Patient Disposition: Left W/O Completing Treatment Prescriptions: No Action omeprazole 20 mg capsule,delayed release(DR/EC) 20 mg PO DAILY Qty: 30 0RF sucralfate 1 gram tablet 1 g PO TID Qty: 90 0RF cephalexin 500 mg capsule 500 mg PO QID 7 Days Qty: 28 0RF alum-mag hydroxide-simeth [Maalox Maximum Strength] 400-400-40 mg/5 mL suspension 10 ml PO TID PRN (Reason: indigestion) Qty: 355 0RF Biktarvy 50-200-25 mg tablet 1 tab PO DAILY Certavite-Antioxidant 18-400 mg-mcg tablet 1 tab PO QPM melatonin 5 mg tablet 10 mg PO BEDTIME PRN calcium carbonate-vitamin D3 600 mg-10 mcg (400 unit) tablet 1 tab PO Flovent HFA 110 mcg/actuation HFA aerosol inhaler 2 puff PO BID quetiapine 50 mg tablet 50 mg PO BEDTIME furosemide 20 mg tablet 20 mg PO QAM amlodipine 10 mg tablet 10 mg PO QAM cyclobenzaprine 5 mg tablet 5 mg PO QID PRN (Reason: muscle spasm) tramadol 50 mg tablet 50 - 100 mg PO Q8H PRN (Reason: moderate pain) albuterol sulfate [ProAir HFA] 90 mcg/actuation HFA aerosol inhaler 2 puff PO Q6H PRN fluticasone propionate 50 mcg/actuation spray,suspension 1 spray intranasal BID doxepin 10 mg capsule 10 mg PO BEDTIME lidocaine 5 % adhesive patch,medicated topical celecoxib [Celebrex] 200 mg capsule 200 mg PO BID 30 Days Qty: 60 3RF risperidone 2 mg tablet 2 mg PO BEDTIME varenicline tartrate 1 mg tablet 1 mg PO BID Spiriva Respimat 1.25 mcg/actuation mist 2 puff inhalation DAILY Discharge Date/Time: 03/23/24 20:12
--- OUTSIDE RECORDS SUMMARY | 2024-03-23 19:27 | XMS_ITS | Clinical Summary ---
Author Organization [facility] ity Address [address] [place] [address] Care Team Providers Care Math Professor Name Role Phone Unavailable Primary Care Provider Unavailabl e Social History Tobacco Use Types Packs/Day Years Used Date Smoking Tobacco: Never Smokeless Tobacco: Never Alcohol Use Standard Drinks/Week Comments Never 0 (1 standard drink = 0.6 oz pur e alcohol) Comments Unknown Sex and Gender Information Value Date Recorded Sex Assigned at Not on file Legal Sex Female 4:51 AM EST Gender Identity Not on file Sexual Orientation Not on file Obstetrics History Last Filed Vital Signs Vital Sign Reading Time Taken Comments Blood Pressure - - Pulse - - Temperature - - Respiratory Rate - - Oxygen Saturation - - Inhaled Oxygen Concentration - - Weight 64.4 kg (142 lb) 09/17/2021 2:06 PM EDT Height 142.2 cm (4' 8 ) 09/17/2021 2:06 PM EDT Body Mass Index 31.84 09/17/2021 2:06 PM EDT Plan of Treatment Health Maintenance Due Date Last Done Comments Breast Cancer Screening 1964 COVID-19 Vaccine (#1) 1969 DTaP,Tdap,and Td Vaccines (1 - Tdap) 07/09/1983 Hepatitis B Vaccines (1 of 3 - 19+ 3-dose series) 07/09/1983 Pneumococcal Vaccine: 50+ Ye ars (1 of 2 - PCV) 07/09/1983 Pneumococcal Vaccine: Pediat rics (0 to 5 Years) and At-Risk Patients (6 to 64 Years) (1 of 2 - PCV) 07/09/1983 Zoster Vaccines (1 of 2) 07/09/1983 Cervical Cancer Screening: P ap Smear 1985 Colorectal Cancer Screening: Colonoscopy 01/09/2022 Depression Screening 01/09/2022 HIV Screening 01/09/2022 Hepatitis C Screening 01/09/2022 Social Influencers of Health Screening 01/09/2022 Influenza Vaccine (#1) 2023 RSV Immunization Patients 60 + Years Old (1 - 1-dose 75+ series) 07/09/2039 HIB Vaccines Aged Out No longer eligi ble based on patient's age to complete this topic HPV Vaccines Aged Out No longer eligi ble based on patient's age to complete this topic Hepatitis A Vaccines Aged Out No long er eligible based on patient's age to complete this topic IPV Vaccines Aged Out No longer eligi ble based on patient's age to complete this topic MMR Vaccines Aged Out No longer eligi ble based on patient's age to complete this topic Meningococcal ACWY Vaccine Aged Out N o longer eligible based on patient's age to complete this topic Meningococcal B Vacine Aged Out No lo nger eligible based on patient's age to complete this topic RSV Immunization Patients Un stacey 20 months Aged Out No longer eligible b ased on patient's age to complete this topic Varicella Vaccines Aged Out No longer eligible based on patient's age to complete this topic
== END 2024-03-23 20:12 | disposition left against medical advice (07) ==
PROVIDERS: Emergency Provider Emergency Medicine; PCP Nurse Practitioner Primary Care
DX: M79.605 Pain in left leg (principal)
CPT/HCPCS: 99281

== ENCOUNTER 2024-03-26 11:19 | Emergency (ER) | payer MEDICAID, SELFPAY ==
--- NOTE | ~2024-03-26 | US_ITS ---
CLINICAL HISTORY: swelling, concern for DVT Left leg venous duplex Doppler ultrasound with waveform analysis: Comparison: 08/28/2020. Findings: The deep veins of the left leg were evaluated with compression, augmentation and phasicity which are normal. Blood flow in the deep veins of the left leg was also confirmed with color Doppler. Impression: Negative for deep venous thrombosis. This document has been electronically signed by: Jono Villalpando MD on 03/26/2024 13:45:26
[2024-03-26 12:06] VITALS: BP 125/67; PULSE 72; RESP 18; TEMP 36.4; O2SAT 97; BMI 38.1
--- NOTE | 2024-03-26 12:11 | ED_ITS ---
HPI - General Adult General Chief complaint: Extremity Problem Stated complaint: Dr. plaza ultrasound of leg Time Seen by Provider: 03/26/24 13:52 Source: patient and family (daughter) Mode of arrival: ambulatory Limitations: no limitations History of Present Illness ED Provider: BELLA MOLINA PA-C HPI narrative: 58 year old female presents to the ED today for evaluation of redness/swelling to left thigh x1.5 weeks. Patient was referred to vascular surgeon for vein stripping procedure which was done on 03/09/24. She cannot recall the name of the physician who performed the procedure. She has since had a follow up appointment with them approximately 10 days ago. She had a venous duplex of her left lower extremity performed at that time and states that it did not show a clot. Reports increasing erythema and swelling to the inner aspect of her left thigh. She has been taking warm baths without improvement. She has not trialed any [id number] pain medications. Denies fever, chills. Denies numbness/tingling/weakness of the LLE. Denies chest pain, sob, palpitations, orthopnea. No other concerns at present. Related Data Home Medications ?Medication ?Instructions ?Recorded ?Confirmed albuterol sulfate 90 mcg/actuation 2 puff PO Q6H PRN 01/23/21 11/25/23 aerosol inhaler (ProAir HFA) amlodipine 10 mg tablet 10 mg PO QAM 01/23/21 11/25/23 bictegravir 50 mg-emtricitabine 1 tab PO DAILY 01/23/21 11/25/23 200 mg-tenofovir alafenam 25 mg tablet (Biktarvy) calcium 600 mg (as 1 tab PO 01/23/21 11/25/23 carbonate)-vitamin D3 10 mcg (400 unit) tablet cyclobenzaprine 5 mg tablet 5 mg PO QID PRN muscle spasm 01/23/21 11/25/23 fluticasone propionate 110 2 puff PO BID 01/23/21 11/25/23 mcg/actuation HFA aerosol inhaler (Flovent HFA) fluticasone propionate 50 1 spray intranasal BID 01/23/21 11/25/23 mcg/actuation nasal spray,suspension furosemide 20 mg tablet 20 mg PO QAM 01/23/21 11/25/23 melatonin 5 mg tablet 10 mg PO BEDTIME PRN 01/23/21 11/25/23 multivitamin-ferrous 1 tab PO QPM 01/23/21 11/25/23 fumarate-folic acid 18 mg-400 mcg tablet (Certavite-Antioxidant) quetiapine 50 mg tablet 50 mg PO BEDTIME 01/23/21 11/25/23 tramadol 50 mg tablet 50 - 100 mg PO Q8H PRN moderate 01/23/21 11/25/23 pain doxepin 10 mg capsule 10 mg PO BEDTIME 11/25/23 lidocaine 5 % topical patch patch topical 11/25/23 risperidone 2 mg tablet 2 mg PO BEDTIME 11/25/23 tiotropium bromide 1.25 2 puff inhalation DAILY 11/25/23 mcg/actuation mist for inhalation (Spiriva Respimat) varenicline tartrate 1 mg tablet 1 mg PO BID 11/25/23 Previous Rx's ?Medication ?Instructions ?Recorded sucralfate 1 gram tablet 1 g PO TID #90 tabs 12/04/20 omeprazole 20 mg capsule,delayed 20 mg PO DAILY #30 caps 09/16/21 release aluminum-mag hydroxide-simethicone 10 ml PO TID PRN indigestion #355 06/30/22 400 mg-400 mg-40 mg/5 mL oral susp mL (Maalox Maximum Strength) celecoxib 200 mg capsule (Celebrex) 200 mg PO BID 30 days #60 caps 11/25/23 cephalexin 500 mg capsule 500 mg PO QID 7 days #28 caps 03/26/24 Allergies Allergy/AdvReac Type Severity Reaction Status Date / Time No Known Allergies Allergy Verified 03/26/24 12:10 Review of Systems 2 Review of Systems: Constitutional: No fever, chills, fatigue, night sweats, weight changes ENT/Mouth: No ear pain, hearing loss, nasal congestion, sinus pain, rhinorrhea, sore throat Eyes: No eye pain, swelling, redness, vision changes, discharge Cardio: No chest pain, palpitations, BARNES, orthopnea, peripheral edema Pulm: No SOB, cough, sputum, wheezing, dyspnea, hemoptysis GI: No nausea, vomiting, hematemesis, abdominal pain, diarrhea, constipation, hematochezia, melena : No irregular bleeding, dysuria, frequency, urgency, hesitancy, hematuria, flank pain, urinary flow changes, urinary incontinence or retention MSK: No back pain, neck pain, joint pain, myalgias, +left thigh pain/redness/swelling Skin: No lesions, rashes Neuro: No weakness, numbness, paresthesias, LOC, dizziness, headache Psych: No anxiety/panic, depression, SI/HI, AH/VH All other systems reviewed and are negative. [facility] Past Medical History Attestation statement: The following information was validated with the patient. Source: old records reviewed and nursing notes reviewed Medical History Acid reflux RUQ pain HTN (hypertension) Asthma HIV (human immunodeficiency virus infection) Surgical History History of lithotripsy History of breast surgery Family History Family History Father Lung cancer Prostate CA Mother Colon cancer Social History Social History Household Members: Family Alcohol intake: never Patient Tobacco Use Status: Never used Tobacco Advance Directives: No Advance Directives Information Provided: No Do you have a plan to hurt others: No Plan Current occupational status: disabled Physical Exam ED Vital Signs: Vital Signs - 24 hr 03/26/24 12:06 03/26/24 13:58 03/26/24 15:33 Temperature 97.6 F 98.5 F 98.5 F Pulse Rate 72 77 77 Respiratory Rate 18 16 16 Blood Pressure 125/67 137/75 137/75 Pulse Oximetry 97 99 99 Oxygen Delivery Method Room Air Room Air Room Air BMI result Body Mass Index 38.1 vital signs stable, not hyposic, febrile or tachycardic. General: Well appearing, in no acute distress. Skin: Warm, dry, intact. No rashes or lesions. Head: Normocephalic, atraumatic. EENT: Hearing is intact b/l. Conjunctiva clear. PERRLA. EOM intact. Moist mucous membranes.? Cardiac: Chest wall symmetric. RRR Lungs: Normal respiratory effort without accessory muscle use. CTA bilaterally. Ext: + see photo of LLE below. area of erythema noted to medical aspect of left thigh. not circumferential. warm, ttp. no sloughing. no palpable crepitus/ deformity. no tenderness to posterior left knee. there is no calf tenderness. 2+ popliteal, DP/PT pulse intact. Sensation intact. cap refill <2 seconds. Neuro: AOx3. Normal speech. Ambulating with steady gait. Psych: Appropriate mood and affect. Responds appropriately to questions. Course Course Course Narrative: RME performed by Eli Thompson PA-C. Patient is a 58 year old assigned female at presenting to the emergency department with left lower leg swelling. Patient states that at the end of February she had a vein removed and has been having intermittent swelling and pain ever since. Detailed physical exam and review of systems are deferred to the tram driver. Imaging ordered. Patient placed back in the waiting room pending room availability and results. Patient's [facility] records reviewed - no evidence of a work up for this. However, patient has history of HIV on HAART therapy, HTN, and asthma. Reevaluation(s) Reevaluation #1: CBC without leukocytosis or left shift. No anemia. H&H stable. Chemistry without acute electrolyte abnormality requiring intervention. No TAYLOR. Liver function at baseline. BNP WNL. Venous duplex of left lower extremity without clot. Exam is consistent with a cellulitis. Will discharge patient on Keflex. advised warm compresses. advised follow up with both PCP and vascular surgeon. Patient has remained stable throughout ED visit today. Discussed worrisome signs and symptoms and when to return to the ED. All questions answered at this time. Patient is agreeable with disposition and stable for discharge. Medical Decision Making Medical Decision Making MDM Narrative: 58 year old female presents to the ED today for evaluation of redness/swelling to left thigh x1.5 weeks. Vital signs stable. Not febrile, hypoxic or tachycardic. She is well-appearing and in no acute distress. On exam of LLE, area of erythema noted to medical aspect of left thigh. not circumferential. warm, ttp. no sloughing. no palpable crepitus/ deformity. no tenderness to posterior left knee. there is no calf tenderness. 2+ popliteal, DP/PT pulse intact. Sensation intact. cap refill <2 seconds. no pitting edema. Differential diagnosis includes DVT, phlebitis, cellulitis, feliciano's cyst, chronic venous insufficiency, CHF. Unlikely arterial occlusion, nv compromise, threat to limb, compartment syndrome, fracture, dislocation. Plan for basic labs, venous duplex, re-evaluation. Differential Diagnosis Differential Diagnoses: The differential diagnosis associated with the presentation includes as above. Admission/Observation not indicated. Lab Data MDM Lab Attestation statement: I reviewed the patient's lab results. as above. 03/26/24 14:23 03/26/24 14:23 Labs: Lab Results 03/26/24 Range/Units 14:23 WBC 6.9 (4.8-10.8) X10*3/uL RBC 4.26 (4.20-5.50) X10*6/uL Hgb 12.4 (12.0-16.0) g/dl Hct 38.0 (37.0-47.0) % MCV 89.2 (80.0-98.0) fL MCH 29.1 (27.0-33.0) pg MCHC 32.6 (31.0-35.0) g/dl RDW 13.9 (11.0-16.0) % Plt Count 382 (160-400) X10*3/uL MPV 8.0 L (9.4-12.3) fL Immature Gran % (Auto) 0.3 (0.0-0.4) % Neut % (Auto) 57.4 (45-73) % Lymph % (Auto) 24.5 (20-40) % [place] % (Auto) 9.7 (2-11) % Eos % (Auto) 7.2 H (0-4) % Baso % (Auto) 0.9 (0-2) % Lymph # (Auto) 1.7 (1.2-4.9) X10*3/uL [place] # (Auto) 0.7 (0.1-1.2) X10*3/uL Eos # (Auto) 0.5 H (0.0-0.4) X10*3/uL Baso # (Auto) 0.1 (0.0-0.2) X10*3/uL Abs Immat Gran (auto) 0.02 (0.00-0.03) X10*3/uL Absolute Neuts (auto) 4.0 (2.0-8.3) x10*3/uL Absolute Nucleated RBC 0.000 (0.0-0.012) X10*3/uL Nucleated RBC % (auto) 0.0 (0.0-0.2) /100WBC Sodium 142 (135-145) mmol/L Potassium 4.0 (3.3-5.1) mmol/L Chloride 108 (96-108) mmol/L Carbon Dioxide 26 (22-29) mmol/L Anion Gap 12 (12-20) BUN 14 (9-16) mg/dL Creatinine 0.83 (0.5-1.4) mg/dL Estim Creat Clear Calc 60.5 Estimated GFR > 60 Random Glucose 92 (60-115) mg/dL Calcium 9.3 (8.4-10.2) mg/dL Total Bilirubin 0.2 (0.0-1.0) mg/dL AST 24 (5-31) U/L ALT 24 (0-31) U/L Alkaline Phosphatase 90 (39-117) U/L B-Natriuretic Peptide 48 (<100) pg/mL Total Protein 8.1 H (6.5-8.0) g/dL Albumin 4.1 (3.5-5.0) g/dL Independent Interpretation I performed an independent interpretation of an: Ultrasound Interpretation: venous duplex LLE without clot Radiology Impression Discussion of test interpretation with radiology: I have reviewed the radiologist's reading. Radiologist Impression: Procedure(s): US venous duplex LE LT Accession Number(s): [id number] cc: Eli Thompson; VICTORINA SERNA NP~ CLINICAL HISTORY: swelling, concern for DVT Left leg venous duplex Doppler ultrasound with waveform analysis: Comparison: 08/28/2020. Findings: The deep veins of the left leg were evaluated with compression, augmentation and phasicity which are normal. Blood flow in the deep veins of the left leg was also confirmed with color Doppler. Impression: Negative for deep venous thrombosis. This document has been electronically signed by: Jono Villalpando MD on 03/26/2024 13:45:26 Independent Historian Clinical information obtained from an independent historian. History obtained from or confirmed by: Other (daughter) External Record Review External record reviewed: Inpatient record Prescription Management I considered prescription management with: Pain Medication and Antibiotic (keflex) Social Determinants Patient?s care significantly limited by Social Determinants of Health including: Other Social Determinant of Health Critical Care Time Critical Care Time Critical Care Time: No Discharge Plan Discharge Clinical Impression: Cellulitis Patient Disposition: Home, Self-Care Instructions: Cellulitis (ED), Warm Compress or Soak (ED) Additional Instructions: You were evaluated in the ED today for redness and swelling to the inner aspect of your left thigh. The ultrasound of your left leg does not demonstrate any clot. Your blood work is reassuring. You have a superficial skin infection that warrants treatment with antibiotics. Keflex is an antibiotic that has been sent to your pharmacy. Take this to completion and do not skip any doses as this may cause infection to persist or worsen. Apply warm compresses to the area. As discussed, please follow up with your surgeon. Return with any new or worsening symptoms. In the case of an emergency call 911. Prescriptions: New cephalexin 500 mg capsule 500 mg PO QID 7 Days Qty: 28 0RF No Action omeprazole 20 mg capsule,delayed release(DR/EC) 20 mg PO DAILY Qty: 30 0RF sucralfate 1 gram tablet 1 g PO TID Qty: 90 0RF alum-mag hydroxide-simeth [Maalox Maximum Strength] 400-400-40 mg/5 mL suspension 10 ml PO TID PRN (Reason: indigestion) Qty: 355 0RF Biktarvy 50-200-25 mg tablet 1 tab PO DAILY Certavite-Antioxidant 18-400 mg-mcg tablet 1 tab PO QPM melatonin 5 mg tablet 10 mg PO BEDTIME PRN calcium carbonate-vitamin D3 600 mg-10 mcg (400 unit) tablet 1 tab PO Flovent HFA 110 mcg/actuation HFA aerosol inhaler 2 puff PO BID quetiapine 50 mg tablet 50 mg PO BEDTIME furosemide 20 mg tablet 20 mg PO QAM amlodipine 10 mg tablet 10 mg PO QAM cyclobenzaprine 5 mg tablet 5 mg PO QID PRN (Reason: muscle spasm) tramadol 50 mg tablet 50 - 100 mg PO Q8H PRN (Reason: moderate pain) albuterol sulfate [ProAir HFA] 90 mcg/actuation HFA aerosol inhaler 2 puff PO Q6H PRN fluticasone propionate 50 mcg/actuation spray,suspension 1 spray intranasal BID doxepin 10 mg capsule 10 mg PO BEDTIME lidocaine 5 % adhesive patch,medicated topical celecoxib [Celebrex] 200 mg capsule 200 mg PO BID 30 Days Qty: 60 3RF risperidone 2 mg tablet 2 mg PO BEDTIME varenicline tartrate 1 mg tablet 1 mg PO BID Spiriva Respimat 1.25 mcg/actuation mist 2 puff inhalation DAILY Referrals: Victorina Serna [employer]ISH[employer] PERSON [Primary Care Provider] - Interventions: ED Discharge Assessment Last Done: 03/26/24 15:33 Discharge Date/Time: 03/26/24 15:34 Print Language: [place]
[2024-03-26 13:58] VITALS: BP 137/75; PULSE 77; RESP 16; TEMP 36.9; O2SAT 99
--- OUTSIDE RECORDS SUMMARY | 2024-03-26 14:19 | XMS_ITS | Clinical Summary ---
Author Organization [facility] ity Address [address] [place] [address] Care Team Providers Care Child Care Name Role Phone Unavailable Primary Care Provider [...]
[2024-03-26 14:27] LABS: MANUAL DIFF FLAG NO
[2024-03-26 14:30] LABS: Basophils Absolute Auto 0.1 X10*3/uL (0.0-0.2); Basophils Percent Auto 0.9 % (0-2); Eosinophils Absolute Auto 0.5 X10*3/uL (0.0-0.4); Eosinophils Percent Auto 7.2 % (0-4); Hemoglobin 12.4 g/dl (12.0-16.0); Imm Gran Abs Auto 0.02 X10*3/uL (0.00-0.03); Imm Gran Pct Auto 0.3 % (0.0-0.4); Lymphocytes Absolute Auto 1.7 X10*3/uL (1.2-4.9); Lymphocytes Percent Auto 24.5 % (20-40); Mean Corpuscular HGB Conc 32.6 g/dl (31.0-35.0); Mean Corpuscular Hemoglobin 29.1 pg (27.0-33.0); Mean Corpuscular Volume 89.2 fL (80.0-98.0); Monocytes Absolute Auto 0.7 X10*3/uL (0.1-1.2); Monocytes Percent Auto 9.7 % (2-11); Neutrophils Percent Auto 57.4 % (45-73); Platelet Count 382 X10*3/uL (160-400); Red Blood Count 4.26 X10*6/uL (4.20-5.50); Red Cell Distribution Width 13.9 % (11.0-16.0); White Blood Count 6.9 X10*3/uL (4.8-10.8)
[2024-03-26 14:47] LABS: Alanine Aminotransferase 24 U/L (0-31); Albumin Level 4.1 g/dL (3.5-5.0); Alkaline Phosphatase 90 U/L (39-117); Anion Gap 12 (12-20); Aspartate Amino Transferase 24 U/L (5-31); Bilirubin Total 0.2 mg/dL (0.0-1.0); Blood Urea Nitrogen 14 mg/dL (9-16); Calcium 9.3 mg/dL (8.4-10.2); Carbon Dioxide 26 mmol/L (22-29); Chloride 108 mmol/L (96-108); Creatinine Clr Calc Pharmacy 60.5; Estimated Glomerular Filt Rate > 60; Glucose Random 92 mg/dL (60-115); Sodium 142 mmol/L (135-145); Total Protein 8.1 g/dL (6.5-8.0)
[2024-03-26 14:49] LABS: B Type Natriuretic Peptide 48 pg/mL (<100)
[2024-03-26 15:33] VITALS: BP 137/75; PULSE 77; RESP 16; TEMP 36.9; O2SAT 99
== END 2024-03-26 15:34 | disposition home or self-care (01) ==
PROVIDERS: Physician Assistant Medical; Emergency Provider Emergency Medicine; PCP Nurse Practitioner Primary Care
DX: L03.116 Cellulitis of left lower limb (principal); L08.9 Local infection of the skin and subcutaneous tissue, unspecified; R60.0 Localized edema; Z79.899 Other long term (current) drug therapy
CPT/HCPCS: 36415; 80053; 83880; 85025; 93971; 99283; 99284

== ENCOUNTER → 2024-03-26 12:12 | Outpatient (BNV) | payer MEDICAID, SELFPAY | PROVIDERS: Emergency Provider Emergency Medicine; PCP Nurse Practitioner Primary Care; Visit Provider Radiology Diagnostic Radiology | DX: R22.42 Localized swelling, mass and lump, left lower limb (principal) | CPT/HCPCS: 93971 ==

== ENCOUNTER 2024-04-13 12:55 | Outpatient (REF) | payer MEDICAID, SELFPAY ==
--- NOTE | ~2024-04-13 | MM_ITS ---
EXAMINATION: MM DIAGNOSTIC DIGITAL BREAST TOMOSYNTHESIS, LEFT CLINICAL INFORMATION: Call back from screening for left breast calcifications and asymmetry. History of right breast cancer in 2009 post lumpectomy. COMPARISON: Mammography: Comparison is made with available priors on PACS. TECHNIQUE: Digital breast tomosynthesis is performed in both the craniocaudal and mediolateral oblique views along with computer-aided detection (CAD). Synthesized 2D images are generated from the tomosynthesis. FINDINGS: There are scattered areas of fibroglandular density (ACR BI-RADS breast composition Category b). Left: Asymmetry in the superior left breast on MLO view posterior depth does not persist on additional imaging projections and likely represented overlapping breast tissue. There are new grouped punctate calcifications in the central slightly inner breast middle depth. No suspicious masses or other abnormal findings. MM/MM tomosynthesis added views L IMPRESSION: Left: Grouped calcifications which are new in the retroareolar region slightly medial breast middle depth. Recommend stereotactic core needle biopsy for confirmation. The findings and recommendations were discussed with the patient the procedure will be scheduled. ASSESSMENT: BI-RADS BI-RADS 4 - Suspicious finding RECOMMENDATION: Biopsy recommended Results were provided to the patient at time of visit by the technologist. This patient's information was entered into a reminder system with a target due date for their next mammogram. Electronically signed by: Madeleine Boateng DO 04/13/2024 01:36 PM EDILBERTO
--- OUTSIDE RECORDS SUMMARY | 2024-04-13 15:14 | XMS_ITS | Clinical Summary ---
Author Organization [facility] it Address [address] [place] [address] Care Team Providers Care Inspector Hot Forgings Name Role Phone Unavailable Primary Care Provider [...]
--- OUTSIDE RECORDS SUMMARY | 2024-04-13 15:14 | XMS_ITS | Clinical Summary ---
Author Organization [facility] Address [address] [place] [address] Care Team Providers Care Vp Outcomes Name Role Phone Unavailable Primary Care Provider Unavailabl e Medications Medication Sig Dispensed Refills Start Date End Date Status Multiple Vitamins-Iron (MULTIVITAMIN/IRON PO) Take by mouth. 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 Social History Tobacco Use Types Packs/Day Years Used Date Smoking Tobacco: Never Assessed Sex and Gender Information Value Date Recorded Sex Assigned at Not on file Gender Identity Not on file Sexual Orientation Not on file Last Filed Vital Signs Vital Sign Reading Time Taken Comments Blood Pressure 119/60 07/20/2018 1:39 PM EDT Pulse 53 07/20/2018 1:39 PM EDT Temperature 36.4 ??C (97.5 ??F) 07/20/2018 1:39 PM ED T Respiratory Rate - - Oxygen Saturation - - Inhaled Oxygen Concentration - - Weight 65.8 kg (145 lb) 07/20/2018 1:39 PM EDT Height 137.2 cm (4' 6 ) 07/20/2018 1:39 PM EDT Body Mass Index 34.96 07/20/2018 1:39 PM EDT Plan of Treatment Health Maintenance Due Date Last Done Comments Hepatitis B Vaccines (1 of 3 - 3-dose series) 1964 Hepatitis C Screening 1964 COVID-19 Vaccine (#1) 1969 Pneumococcal Vaccine (1 of 2 - PCV) 1970 Depression Screening 1976 Preventative Health Evaluation 1982 DTap / Tdap / Td (1 - Tdap) 07/09/1983 Shingrix-Zoster Vaccine (1 of 2) 07/09/1983 Cervical Cancer Screening (P ap Smear) 1985 Colon Cancer Screening (Colonoscopy) 2009 Breast Cancer Screening (Mammogram) 2014 Influenza Vaccine (#1) 2023 RSV Ped < 20 months Aged Out No longe r eligible based on patient's age to complete this topic
== END 2024-04-13 12:56 | disposition home or self-care (01) ==
LOC: HO.MAMMO 12:55
PROVIDERS: PCP Nurse Practitioner Primary Care; Visit Provider Nurse Practitioner Primary Care
DX: N64.89 Other specified disorders of breast (principal); R92.1 Mammographic calcification found on diagnostic imaging of breast
CPT/HCPCS: 77061; 77065

== ENCOUNTER → 2024-04-13 13:30 | Outpatient (BNV) | payer MEDICAID, SELFPAY | PROVIDERS: PCP Nurse Practitioner Primary Care; Visit Provider Internal Medicine | DX: R92.8 Other abnormal and inconclusive findings on diagnostic imaging of breast (principal) | CPT/HCPCS: 77061; 77065 ==

== ENCOUNTER 2024-05-03 12:55 | Outpatient (AMB) | payer MEDICAID, SELFPAY ==
--- NOTE | 2024-05-03 12:56 | A.OFFVIS_ITS ---
Vital Signs 3 05/03/24 13:05 Height 4 ft 8 in Weight 176 lb 6 oz BMI 39.5 BP 152/72 H Blood Pressure Location Lt brachial Position Sitting Pulse 92 Intake Visit Reasons: (L) Breast Stereo bx calcification retroareolar Intake Note: Patient is seen in office for stereo biopsy CONSULT left breast for retroareolar calcs. Pt c/o:had prior right breast bx/lumpectomy 2008, had chemotherapy and the pill for 5 yrs, currently has no symptoms, fm hx breast cancer, has not done genetic testing, no to breast feeding, first child age 14 yrs Bx sched: 05/05/24 @ 10am Hydrotherapist Required: Yes Hydrotherapist Language: Personal Carer Services: Hydrotherapist Present Hydrotherapist Name: Meka WILLIERad Information Interpreted: non-clinical & clinical Certified Financial Planner: Certified Financial Planner Present Accompanied by: Self / Same As Patient Allergies No Known Allergies Allergy (Verified 05/03/24 13:03) Medication List - Last Reconciled 05/03/24 by Zach Siddiqui MD albuterol sulfate 90 mcg/actuation (ProAir HFA) 2 puffs PO Q6H PRN alum-mag hydroxide-simeth 400-400-40 mg/5 mL (Maalox Maximum Strength) 10 mL PO TID PRN amlodipine 10 mg PO QAM fndmuxbvq-mswhcbqy-khljgmo ala 50-200-25 mg (Biktarvy) 1 tab PO DAILY calcium carbonate-vitamin D3 600 mg-10 mcg (400 unit) 1 tab PO celecoxib (Celebrex) 200 mg PO BID 30 days cephalexin 500 mg PO QID 7 days cyclobenzaprine 5 mg PO QID PRN doxepin 10 mg PO BEDTIME fluticasone propionate 110 mcg/actuation (Flovent HFA) 2 puffs PO BID fluticasone propionate 50 mcg/actuation 1 spray intranasal BID furosemide 20 mg PO QAM lidocaine 5% patches topical melatonin 10 mg PO BEDTIME PRN cxbzkpjisoiu-vioa-ebdok acid 18-400 mg-mcg (Certavite-Antioxidant) 1 tab PO QPM omeprazole 20 mg PO DAILY quetiapine 50 mg PO BEDTIME risperidone 2 mg PO BEDTIME sucralfate 1 g PO TID tiotropium bromide 1.25 mcg/actuation (Spiriva Respimat) 2 puffs inhalation DAILY tramadol 50 - 100 mg PO Q8H PRN varenicline tartrate 1 mg PO BID HPI Comments Details: 58-year-old female patient presenting with a recent screening mammogram performed on 02/09/2024 with a additional images performed on 04/13/2024. This revealed a new grouped punctate calcifications in the central slightly in her left breast mid depth felt to be suspicious for malignancy (BI-RADS 4) and stereotactic guided core biopsy is recommended. She was scheduled for this procedure at the [facility] on 05/05/2024. She reports a prior right breast lumpectomy performed in 2008 for breast cancer. This was performed in [place]. She subsequently underwent chemotherapy, radiation therapy and antiestrogen therapy for 5 years. She denies undergoing genetic testing at that time. She currently denies any breast symptoms on either side. Menarche was the age of 12. She is and had her 1st child when she was 14 years old. She underwent menopause at 52 years old. She denied hormone replacement therapy. Family history is significant for her mother having breast cancer as well as 1 maternal aunt and 2 paternal aunts. Her calculated Tyrer-Cuzick remaining lifetime risk of breast cancer was 39.0% [facility] Medical History Acid reflux RUQ pain HTN (hypertension) Asthma HIV (human immunodeficiency virus infection) Surgical History History of lithotripsy History of breast surgery Family History Father Lung cancer Prostate CA Mother Colon cancer Breast cancer Paternal Aunt Breast cancer Maternal Aunt Breast cancer Maternal Aunt Breast cancer Social History Household Members: Family Alcohol intake: never Patient Tobacco Use Status: Never used Tobacco Current occupational status: disabled Female Reproductive History Menstrual Age of Menarche: 13 Age of menopause: 52 Total pregnancies: 5 Number of Living Children: 5 Review of Systems Const All systems reviewed & are unremarkable except as noted in HPI and below Physical Exam Vital Signs: Last Vital Signs Pulse 92 05/03/24 13:05 BP 152/72 H 05/03/24 13:05 BMI result Body Mass Index 39.5 Const General: cooperative and no acute distress Nutritional Appearance: well nourished Orientation/consciousness: patient oriented x3 Limitations: no limitations HEENT Head: Yes normocephalic and Yes atraumatic Ears: hearing grossly normal bilaterally Chest Other: Left breast: No skin change, no nipple retraction, no nipple discharge, no palpable mass, no enlarged lymph nodes. Right breast: No skin change, no nipple retraction, no nipple discharge, no palpable mass, no enlarged lymph nodes, well-healed incision in the upper outer quadrant. Chest/axillae images: 2 1. Resp Effort & Inspection: normal respiratory effort, no audible wheezes, no cough and no respiratory distress Cardio Jugular venous distension: no JVD GI Inspection: Yes normal to inspection Skin Other: Warm, dry, no rash Neuro General: patient oriented x3 Extrem General: Yes no clubbing, cyanosis or edema Assessment & Plan Assessment & Plan (1) Abnormal mammogram of left breast: Code(s): R92.8 - Other abnormal and inconclusive findings on diagnostic imaging of breast Category: Medical Plan 58-year-old female patient presenting with a recent mammogram which revealed a new cluster of calcifications in the left breast felt to be suspicious for malignancy. She is scheduled for a stereotactic guided core biopsy at the [facility] on 05/05/2024. She has a prior history of a right breast invasive carcinoma requiring lumpectomy, sentinel node biopsy followed by chemotherapy, radiation therapy, and hormonal therapy. Examination today reveals no suspicious findings in either breast. I recommended she return in 1 week to review the pathology results and discuss treatment options. She expressed understanding and agrees with the plan. Coding Level of Care Code New Pt Level 4 (81566) Diagnoses Abnormal mammogram of left breast R92.8
[2024-05-03 13:05] VITALS: BP 152/72; PULSE 92; BMI 39.5
== END 2024-05-03 13:28 | disposition home or self-care (01) ==
LOC: HO.HGS 12:55
PROVIDERS: PCP Nurse Practitioner Primary Care; Visit Provider Surgery
DX: R92.8 Other abnormal and inconclusive findings on diagnostic imaging of breast (principal)
CPT/HCPCS: 99204

== ENCOUNTER → 2024-05-03 12:55 | Outpatient (BNVA) | payer MEDICAID, SELFPAY | PROVIDERS: PCP Nurse Practitioner Primary Care; Visit Provider Surgery | DX: R92.1 Mammographic calcification found on diagnostic imaging of breast (principal); Z80.3 Family history of malignant neoplasm of breast | CPT/HCPCS: 99202 ==

== ENCOUNTER 2024-05-05 09:46 | Outpatient (REF) | payer MEDICAID, SELFPAY ==
--- NOTE | ~2024-05-05 | MM_ITS ---
EXAMINATION: STEREOTACTICALLY-GUIDED LEFT BREAST BIOPSY CLINICAL INFORMATION: New grouped calcifications in the retroareolar region of the left breast. COMPARISON: Priors on PACS. INFORMED CONSENT: After the details of the procedure, as well as the risks (including, but not limited to, bleeding, hematoma formation, and infection), benefits and alternatives (including doing nothing, short-interval follow up, and surgery) to the procedure were explained to the patient in detail and all of her questions were answered, informed written consent was obtained. TECHNIQUE/FINDINGS: A timeout was performed. The lesion intended for biopsy was identified stereotactically and targeted. The skin of the left breast was then cleansed with sterile solution. Using stereotactic guidance, aseptic technique, and 1% lidocaine with and without epinephrine for local anesthesia, a total of 12 cores were obtained through the targeted area with a 9-gauge vacuum-assisted Eviva core biopsy device from a superior approach. Specimen radiography reveals the targeted calcifications in the sampled tissue. At the completion of tissue sampling, a single mini Cork-shaped metallic clip was deposited at the biopsy site. Adequate sampling was achieved. The postprocedure 2-view direct digital mammogram reveals satisfactory positioning of the biopsy clip. The patient tolerated the procedure well and, after assuring adequate hemostasis, was discharged in good condition after reviewing postbiopsy breast care instructions. Final pathology results are pending. MM/MM stereotactic biopsy LT IMPRESSION: 1. Uncomplicated stereotactically-guided core biopsy of the left breast. The 2-view direct digital postprocedure mammogram reveals satisfactory positioning of the biopsy clip. 2. Final pathology results are pending. A separate report with final recommendations will be issued once these results are made available. Electronically signed by: Madeleine Boateng DO 05/05/2024 11:49 AM EDT
[2024-05-05] MEDS: Lidocaine HCl 1 % 20 ML VIAL 5 ML SUBCUT (11:15)
[2024-05-05] MEDS: Sodium Bicarbonate 8.4% 50 MEQ/50 ML VIAL SUBCUT (11:17)
[2024-05-05] MEDS: Lidocaine HCl 1%/Epi 1:100,000 10 ML VIAL SUBCUT (11:18)
== END 2024-05-05 09:47 | disposition home or self-care (01) ==
LOC: HO.MAMMO 09:46
PROVIDERS: PCP Nurse Practitioner Primary Care; Visit Provider Surgery
DX: D05.12 Intraductal carcinoma in situ of left breast (principal); R92.8 Other abnormal and inconclusive findings on diagnostic imaging of breast
CPT/HCPCS: 19081; 88305; 88360; A4648; J2003; J2004

== ENCOUNTER → 2024-05-05 10:00 | Outpatient (BNV) | payer MEDICAID, SELFPAY | PROVIDERS: PCP Nurse Practitioner Primary Care; Visit Provider Internal Medicine | DX: C50.112 Malignant neoplasm of central portion of left female breast (principal); N64.1 Fat necrosis of breast | CPT/HCPCS: 19081 ==

== ENCOUNTER 2024-05-13 09:37 | Outpatient (AMB) | payer MEDICAID, SELFPAY ==
--- NOTE | 2024-05-13 09:50 | A.OFFVIS_ITS ---
Vital Signs 05/13/24 09:57 Height 4 ft 8 in Weight 176 lb 5.917 oz BMI 39.5 Respiration 16 Pulse 82 Intake Visit Reasons: 1 wk Results Intake Note: Patient is seen in office for stereo biopsy RESULTS left breast for retroareolar calcs. Pt c/o: denies any concerns regarding the post bx, here for results Receiving Associate Store Required: Yes Receiving Associate Store Language: Processing Technician Services: Receiving Associate Store Present Receiving Associate Store Name: Meka MCCAULEY Information Interpreted: non-clinical & clinical Quality Assurance Coach: Quality Assurance Coach Present Accompanied by: Self / Same As Patient Allergies No Known Allergies Allergy (Verified 05/13/24 09:52) Medication List - Last Reconciled 05/13/24 by Zach Siddiqui MD albuterol sulfate 90 mcg/actuation (ProAir HFA) 2 puffs PO Q6H PRN alum-mag hydroxide-simeth 400-400-40 mg/5 mL (Maalox Maximum Strength) 10 mL PO TID PRN amlodipine 10 mg PO QAM kijpwpzix-wjpsxfbj-fpdbekn ala 50-200-25 mg (Biktarvy) 1 tab PO DAILY calcium carbonate-vitamin D3 600 mg-10 mcg (400 unit) 1 tab PO celecoxib (Celebrex) 200 mg PO BID 30 days cephalexin 500 mg PO QID 7 days cyclobenzaprine 5 mg PO QID PRN doxepin 10 mg PO BEDTIME fluticasone propionate 110 mcg/actuation (Flovent HFA) 2 puffs PO BID fluticasone propionate 50 mcg/actuation 1 spray intranasal BID furosemide 20 mg PO QAM lidocaine 5% patches topical melatonin 10 mg PO BEDTIME PRN dxojkkstxhcb-prsr-dtnhn acid 18-400 mg-mcg (Certavite-Antioxidant) 1 tab PO QPM omeprazole 20 mg PO DAILY quetiapine 50 mg PO BEDTIME risperidone 2 mg PO BEDTIME sucralfate 1 g PO TID tiotropium bromide 1.25 mcg/actuation (Spiriva Respimat) 2 puffs inhalation DAILY tramadol 50 - 100 mg PO Q8H PRN varenicline tartrate 1 mg PO BID HPI Comments Details: 58-year-old female patient presenting with a recent screening mammogram performed on 02/09/2024 with a additional images performed on 04/13/2024. This revealed a new grouped punctate calcifications in the central slightly in her left breast mid depth felt to be suspicious for malignancy (BI-RADS 4) and stereotactic guided core biopsy is recommended. She was scheduled for this pro cedure at the [facility] on 05/05/2024. She reports a prior right breast lumpectomy performed in 2008 for breast cancer. This was performed in [place]. She subsequently underwent chemotherapy, radiation therapy and antiestrogen therapy for 5 years. She denies undergoing genetic testing at that time. She currently denies any breast symptoms on either side. Menarche was the age of 12. She is and had her 1st child when she was 14 years old. She underwent menopause at 52 years old. She denied hormone replacement therapy. Family history is significant for her mother having breast cancer as well as 1 maternal aunt and 2 paternal aunts. She underwent the left breast stereotactic guided core biopsy 1 week ago. 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 I reviewed the pathology results with the patient and provided her with a copy of the report. [facility] Medical History Acid reflux RUQ pain HTN (hypertension) Asthma HIV (human immunodeficiency virus infection) Surgical History History of lithotripsy History of breast surgery Family History Father Lung cancer Prostate CA Mother Colon cancer Breast cancer Paternal Aunt Breast cancer Maternal Aunt Breast cancer Maternal Aunt Breast cancer Social History Household Members: Family Alcohol intake: never Patient Tobacco Use Status: Never used Tobacco Current occupational status: disabled Female Reproductive History Menstrual Age of Menarche: 13 Review of Systems Const All systems reviewed & are unremarkable except as noted in HPI and below Physical Exam Vital Signs: Last Vital Signs Pulse 82 05/13/24 09:57 Resp 16 05/13/24 09:57 BMI result Body Mass Index 39.5 Const General: cooperative and no acute distress Nutritional Appearance: well nourished Orientation/consciousness: patient oriented x3 Limitations: no limitations HEENT Head: Yes normocephalic and Yes atraumatic Ears: hearing grossly normal bilaterally Chest Other: Left breast: No skin change, no nipple retraction, no nipple discharge, no palpable mass, no enlarged lymph nodes. Right breast: No skin change, no nipple retraction, no nipple discharge, no palpable mass, no enlarged lymph nodes, well-healed incision in the upper outer quadrant. Resp Effort & Inspection: normal respiratory effort, no audible wheezes, no cough and no respiratory distress Cardio Jugular venous distension: no JVD GI Inspection: Yes normal to inspection Skin Other: Warm, dry, no rash Neuro Other: Mobility Assessment: 1. 3 meter assessment time (seconds): 5 2. Gait observations: Normal balance and gait General: patient oriented x3 Extrem General: Yes no clubbing, cyanosis or edema Assessment & Plan Assessment & Plan (1) Abnormal mammogram of left breast: Code(s): R92.8 - Other abnormal and inconclusive findings on diagnostic imaging of breast Category: Medical Plan 58-year-old female patient presenting with a recent mammogram which revealed a new cluster of calcifications in the left breast felt to be suspicious for malignancy. She underwent a stereotactic guided core biopsy at the [facility] on 05/05/2024 the results of which revealed ductal carcinoma in-situ, grade 3, ER/CT positive. I reviewed the pathology results in detail with the patient and discuss treatment options. After discussion of the procedure, risks, and alternatives, she consents to a left breast lumpectomy with localizer. Coding Level of Care Code Est Pt Level 3 (52925) Diagnoses Abnormal mammogram of left breast R92.8
[2024-05-13 09:57] VITALS: PULSE 82; RESP 16; BMI 39.5
--- OUTSIDE RECORDS SUMMARY | 2024-05-13 10:39 | XMS_ITS | Clinical Summary ---
Author Organization [facility] Address [address] [place] [address] Care Team Providers Care Upholsterer Inside Name Role Phone Unavailable Primary Care Provider [...]
--- OUTSIDE RECORDS SUMMARY | 2024-05-13 10:39 | XMS_ITS | Continuity of Care Document ---
Author Organization [facility] Address [address] [place] [id number]- Care Team Providers Care Facility Attendant Name Role Phone Angela Rincon NP Primary Care Physician Encounter [facility] Date(s): 04/08/24 - 05/08/24 [facility] [address] [place] [address]- Attending Physician: Andres Grey Admitting Physician: Andres Grey Referring Physician: Andres Grey Encounter Type: Triage Allergies, Adverse Reactions, Alerts No Known Allergies Immunizations Given and Recorded Vaccine Date Status Refusal Reason influenza virus vaccine, inactivated 1 02/21/16 Gi colby 1Early/Late Reason: Wan to Standard Admin Times Problem List Condition Confirmation Course Effective Dates Status Health St [facility] Informant GERD (gastroesophageal reflux disease) Confirmed Active HIV disease Confirmed Active Obese class II Confirmed Active Tubular adenoma of colon 1 Confirmed 10/01/21 Active 1repeat screening colonoscopy in 2028 Social History Social History Type Response Smoking Status Former smoker entered on: 01/18/15 Sex Sex Representation Female (finding) Patient Care team information Care Team Personnel Name: Angela Rincon NP Position: [facility] Outreach Member Role: PCP Address: [address] [facility], [place] [address]- Telecom: Care Team Related Persons Name: CHELITA MCCURDY Name: ROGER CALDERON Insurance Providers Guarantor name: CHICHO CALDERON Health Plan Information #: 1 Payer: [employer] Member Number: NA Policy Number: NA Group Number: NA
--- OUTSIDE RECORDS SUMMARY | 2024-05-13 10:39 | XMS_ITS | Clinical Summary ---
Author Organization [facility] it Address [address] [place] [address] Care Team Providers Care Terminal Clerk Name Role Phone Unavailable Primary Care Provider [...] Influencers of Health Screening 01/09/2022 Influenza Vaccine (Season Ended) 2024 RSV Immunization Adult Patie nts (1 - 1-dose 75+ series) 07/09/2039 HIB [...]
== END 2024-05-13 10:15 | disposition home or self-care (01) ==
LOC: HO.HGS 09:37
PROVIDERS: PCP Nurse Practitioner Primary Care; Visit Provider Surgery
DX: R92.8 Other abnormal and inconclusive findings on diagnostic imaging of breast (principal)
CPT/HCPCS: 99213

== ENCOUNTER → 2024-05-13 09:37 | Outpatient (BNVA) | payer MEDICAID, SELFPAY | PROVIDERS: PCP Nurse Practitioner Primary Care; Visit Provider Surgery | DX: R92.8 Other abnormal and inconclusive findings on diagnostic imaging of breast (principal); D05.12 Intraductal carcinoma in situ of left breast | CPT/HCPCS: 99212 ==

== ENCOUNTER → 2024-05-17 09:49 | Outpatient (REF) | payer MEDICAID, SELFPAY ==
--- NOTE | 2024-05-17 10:00 | CA_ITS ---
Transthoracic Echocardiogram Patient (Last, First, Middle): Lucia Thomas, Gender: Female Date of : 1965 Age: 58 Procedure Date: 05/17/2024 Procedure Type: Transthoracic Echocardiogram Location: OP Height: 142. cm Weight: 79.38 kg BSA: 1.68 m2 Heart Rate: 55 bpm BP: 120 / 70 mmHg Barrel And Receiver Aligner: CARLOS Referring MD: Angela Rincon NP Symptoms: /B/L LE EDEMA R60.0 Study Quality: Fair ECG Rhythm: Bradycardia Conclusions: - The left ventricular systolic function is normal. The calculated ejection fraction is 60% by biplane method. - No obvious valvular pathology seen on this study. Findings Left Ventricle Normal left ventricular cavity size. There is normal left ventricular wall thickness. The left ventricular systolic function is normal. The calculated ejection fraction is 60% by biplane method. There is no evidence of regional wall motion abnormalities. Diastolic function is normal for age. Right Ventricle Normal right ventricular cavity size. There is low normal right ventricular systolic function. Atria Both atria are normal in size. Aortic Valve There is a normal trileaflet aortic valve. There is no aortic valve stenosis. There is no aortic valve regurgitation. Mitral Valve The mitral valve appears normal. There is no mitral valve regurgitation. There is no mitral valve stenosis. Pulmonic Valve The pulmonic valve is likely normal. Tricuspid Valve There is trace tricuspid valve regurgitation. There is no evidence of pulmonary hypertension. Great Vessels The asc aorta is normal in size. Venous The inferior vena cava is normal in size and collapses greater than 50% with inspiration. Pericardium/Pleural There is no evidence of pericardial effusion. Prior Study Comparison No significant change compared to prior study dated: 08/02/2019. Recommendations, Care & Conclusions No obvious valvular pathology seen on this study. Measurements 2D Linear Measurements IVSd: 0.70 0.6-0.9/0.6-1.0 cm LVIDd: 5.16 3.9-5.3/4.2-5.9 cm LVIDd Index: 3.07 2.4-3.2/2.2-3.1 cm/m2 LVIDs: 3.86 2.0-3.6 cm LVPWd: 0.68 0.7-1.1 cm LA Diam: 3.00 2.7-3.8/3.0-4.0 cm LAIDs Index: 1.79 1.5-2.3 cm/m2 LV Mass: 147.23 67-162/88-224 g LV Mass Index: 87.64 43-95/49-115 g/m2 LVOT Diam: 2.00 3.0+(-)1.3 cm 2D Systolic Function EF 4C: 58.70 >55% EF 2C: 63.90 >55% EF BiP: 60.20 >55% Mitral Valve MV Pk E: 1.04 MV PK A: 0.81 MV Decel Time: 203.00 E/A: 1.30 E'Lateral: 9.03 E'Medial: 7.72 E/E' Med: 13.50 E/E' Lat: 11.50 PHT: 59.00 MVA PHT: 3.73 Decel Barron: 5.12 Aortic Valve AoV Pk Eh: 1.20 AoV Mn Eh: 0.83 AoV VTI: 0.30 AoV Pk Grad: 6.00 Aov Mn Grad: 3.00 MICHAEL Cont.VTI: 2.68 LVOT LVOT Pk Eh: 1.04 LVOT Mn Eh: 0.71 LVOT VTI: 0.25 LVOT Pk Grad: 4.00 LVOT Mn Grad: 2.00 LVOT Diam: 2.00 LVOT Area: 3.14 Diastolic Function MV Pk E: 1.04 MV Pk A: 0.81 E/A: 1.30 E'Medial: 7.72 E/E' Med: 13.50 E' Laterial: 9.03 E/E' Lat: 11.50 Right Ventricle TAPSE (mm): 21.70 TVS' Eh: 9.57 Tricuspid Valve TR Pk Eh: 1.51 TR Pk Grad: 9.00 RA Press: 8.00 RVSP: 17.00 Great Vessels Aorta Sinus of Valsalva: 3.30 2.0-3.5 cm Ao Asc: 2.90 2.1-3.4 cm Pulmonary Valve PV Pk Eh: 0.73 Peak PV Grad: 2.00 Updated in Other Vendor System with Status of Final Charles Antonio MD electronically signed on 05/17/2024 2:14:00 PM with status of Final
--- OUTSIDE RECORDS SUMMARY | 2024-05-17 11:19 | XMS_ITS | Clinical Summary ---
Author Organization [facility] it Address [address] [place] [address] Care Team Providers Care Costumer Assistant Name Role Phone Unavailable Primary Care Provider [...] age to complete this topic Meningococcal B Vaccine Aged Out No l onger eligible based on patient's age to complete this topic RSV Immunization Patients Un stacey 20 months Aged Out No longer eligible b ased on patient's age to complete this topic Varicella Vaccines Aged Out No longer eligible based on patient's age to complete this topic
--- OUTSIDE RECORDS SUMMARY | 2024-05-17 11:19 | XMS_ITS | Clinical Summary ---
Author Organization [facility] Address [address] [place] [address] Care Team Providers Care Police Inspector Name Role Phone Unavailable Primary Care Provider [...]
== END ==
LOC: HO.CARD 09:49
PROVIDERS: PCP Nurse Practitioner Primary Care; Visit Provider Nurse Practitioner Primary Care
DX: R60.0 Localized edema (principal)
CPT/HCPCS: 93306

== ENCOUNTER → 2024-05-17 10:00 | Outpatient (BNV) | payer MEDICAID, SELFPAY | PROVIDERS: PCP Nurse Practitioner Primary Care; Visit Provider Internal Medicine | DX: R22.43 Localized swelling, mass and lump, lower limb, bilateral (principal) | CPT/HCPCS: 93306 ==

== ENCOUNTER 2024-05-24 12:49 | Outpatient (REF) | payer MEDICAID, SELFPAY ==
--- NOTE | ~2024-05-24 | MM_ITS ---
EXAMINATION: MM MAMMOGRAM GUIDED RFID LOCALIZATION BREAST, LEFT CLINICAL INFORMATION: Left breast DCIS 9:00 axis, for localization. COMPARISON: Left Stereotactic breast biopsy 05/05/2024. Diagnostic left mammography 04/13/2024. TECHNIQUE NEEDLE LOC: Proper informed consent is obtained from the patient after discussion of the procedure, potential risks and complications, and alternatives including declining the procedure today. Patient was given an opportunity for questions. The patient appeared to understand. The patient consented to the procedure and signed the consent form. GUIDANCE: Digital mammography. APPROACH: Medial Lateral. TARGET: mini cork shaped biopsy clip. ANESTHESIA: carbonated lidocaine 1%: 3 mL. LOCALIZATION SYSTEM: Visiogen LOCallizer 7 cm Wire-Free Guidance System with 12g needle applicator. RADIOFREQUENCY TAG: ID # [id number] DERMATOTOMY: Single 1 mm skin-chasity dermatotomy performed. RF Tag ID confirmed with LOCalizer Guidance System prior to placement. The skin is prepped and local anesthesia administered. The needle is positioned and RFID tag deployed. Final images demonstrate the LOCalizer RF tag to reside immediately adjacent to the biopsy clip and biopsy site. The patient tolerated the procedure well and had no immediate complications. Dressing placed and home instructions reviewed. MM/MM RF Tag device LT IMPRESSION: -Status post left breast RFID localization. Electronically signed by: Maykel Gonzalez MD 05/24/2024 04:23 PM EDT
[2024-05-24] MEDS: Lidocaine HCl 1 % 20 ML VIAL 3 ML SUBCUT (13:40)
[2024-05-24] MEDS: Sodium Bicarbonate 8.4% 50 MEQ/50 ML VIAL SUBCUT (13:41)
--- OUTSIDE RECORDS SUMMARY | 2024-05-24 15:39 | XMS_ITS | Clinical Summary ---
Author Organization [facility] [facility] Address [address] [place] [address] Care Team Providers Care Ed Educational Aide Name Role Phone Unavailable Primary Care Provider [...]
--- OUTSIDE RECORDS SUMMARY | 2024-05-24 15:39 | XMS_ITS | Clinical Summary ---
Author Organization [facility] it Address [address] [place] [address] Care Team Providers Care Appeals Board Referee Name Role Phone Unavailable Primary Care Provider [...]
== END 2024-05-24 12:50 | disposition home or self-care (01) ==
LOC: HO.MAMMO 12:49
PROVIDERS: PCP Nurse Practitioner Primary Care; Visit Provider Surgery
DX: R92.8 Other abnormal and inconclusive findings on diagnostic imaging of breast (principal)
CPT/HCPCS: 19281; C1819; J2003

== ENCOUNTER → 2024-05-24 13:00 | Outpatient (BNV) | payer MEDICAID, SELFPAY | PROVIDERS: PCP Nurse Practitioner Primary Care; Visit Provider Radiology Diagnostic Radiology | DX: D05.12 Intraductal carcinoma in situ of left breast (principal) | CPT/HCPCS: 19281 ==

== ENCOUNTER 2024-06-01 08:36 | Day surgery (SDC) | payer MEDICAID, SELFPAY ==
--- OUTSIDE RECORDS SUMMARY | 2024-05-17 14:47 | XMS_ITS | Clinical Summary ---
Author Organization [employer] [facility] Address [address] [place] [address] Care Team Providers Care Leaflet Or Newspaper Deliverer Name Role Phone Unavailable Primary Care Provider [...]
--- OUTSIDE RECORDS SUMMARY | 2024-05-17 14:47 | XMS_ITS | Clinical Summary ---
Author Organization [facility] it Address [address] [place] [address] Care Team Providers Care Vegetable Cutter Name Role Phone Unavailable Primary Care Provider [...]
[2024-05-27 09:24] VITALS: BMI 39.5
--- NOTE | 2024-05-27 13:02 | HO.ANESPROP2 ---
Documented by User: Debra Holguin NP 05/27/24 13:09 HPI - Anesthesia Eval Consult details Narrative: 58yo F for Left Breast Lumpectomy w/LOCalizer Chronic LE edema d/t venous insufficiency, doesn't wear compression socks are rx'd. ECHO done 05/2024 WNL PMFSH Active Problems Active Problems: All Active Problems Abnormal mammogram of left breast (Acute) Left ankle tendonitis (Acute) Acid reflux (Acute) RUQ pain (Acute) Past Medical History Medical History Acid reflux RUQ pain HTN (hypertension) Asthma HIV (human immunodeficiency virus infection) Family History Family History Father Lung cancer Prostate CA Mother Colon cancer Breast cancer Paternal Aunt Breast cancer Maternal Aunt Breast cancer Maternal Aunt Breast cancer Surgical History Surgical History Hx of blepharoplasty History of lithotripsy History of breast surgery Social History Social History Household Members: Family Are you a primary assisted living care manager to a significant other at home: No Do you presently have visiting nurse or other home services: No Alcohol intake: never Patient Tobacco Use Status: Current someday Tobacco user Tobacco use type: Cigarette Smoked in Last 30 Days: Yes Patient Interested in Nicotine Replacement: No Have you been hit, kicked, punched, or otherwise hurt by someone within the past year? If so, by whom?: No Are you DNR?: No Advance Directives: No Advance Directives Information Provided: Yes Poor oral hygiene: No Current occupational status: disabled Meds Allergies Allergy/AdvReac Type Severity Reaction Status Date / Time No Known Allergies Allergy Verified 06/01/24 08:43 Home Medications ?Medication ?Instructions ?Recorded ?Confirmed ?Last Taken ?Type albuterol sulfate 90 mcg/actuation 2 puff PO Q6H PRN Shortness Of 01/23/21 05/27/24 Unknown History aerosol inhaler (ProAir HFA) Breath Or Wheezing amlodipine 10 mg tablet 10 mg PO QAM 01/23/21 05/27/2425 History bictegravir 50 mg-emtricitabine 1 tab PO DAILY 01/23/21 05/27/24 Unknown History 200 mg-tenofovir alafenam 25 mg tablet (Biktarvy) calcium 600 mg (as 1 tab PO DAILY 01/23/21 05/27/24 Unknown History carbonate)-vitamin D3 10 mcg (400 unit) tablet cyclobenzaprine 5 mg tablet 5 mg PO QID PRN muscle spasm 01/23/21 05/27/24 Unknown History fluticasone propionate 110 2 puff PO BID 01/23/21 05/27/24 Unknown History mcg/actuation HFA aerosol inhaler (Flovent HFA) fluticasone propionate 50 1 spray intranasal BID 01/23/21 05/27/24 Unknown History mcg/actuation nasal spray,suspension furosemide 20 mg tablet 20 mg PO QAM 01/23/21 05/27/24 Unknown History melatonin 5 mg tablet 10 mg PO BEDTIME PRN Insomnia 01/23/21 05/27/24 Unknown History multivitamin-ferrous 1 tab PO QPM 01/23/21 05/27/24 Unknown History fumarate-folic acid 18 mg-400 mcg tablet (Certavite-Antioxidant) quetiapine 50 mg tablet 50 mg PO BEDTIME 01/23/21 05/27/24 Unknown History tramadol 50 mg tablet 50 - 100 mg PO Q8H PRN moderate 01/23/21 05/27/24 Unknown History pain doxepin 10 mg capsule 10 mg PO BEDTIME 11/25/23 05/27/24 Unknown History lidocaine 5 % topical patch 1 patch topical DAILY 11/25/23 05/27/24 Unknown History risperidone 2 mg tablet 2 mg PO BEDTIME 11/25/23 05/27/24 Unknown History tiotropium bromide 1.25 2 puff inhalation DAILY 11/25/23 05/27/24 Unknown History mcg/actuation mist for inhalation (Spiriva Respimat) varenicline tartrate 1 mg tablet 1 mg PO BID 11/25/23 05/27/24 Unknown History Exam Height,Weight and Vital Signs: Height 4 ft 8 in Weight 80 kg Pertinent Lab Results Pertinent Lab Results: Laboratory Tests 03/26/24 14:23 WBC 6.9 Hgb 12.4 Hct 38.0 Plt Count 382 Sodium 142 Potassium 4.0 Chloride 108 Carbon Dioxide 26 BUN 14 Creatinine 0.83 Narrative Narrative: ECHO 05/2024 Conclusions: - The left ventricular systolic function is normal. The calculated ejection fraction is 60% by biplane method. - No obvious valvular pathology seen on this study. EKG 2023 Vent. Rate : 079 BPM Atrial Rate : 079 BPM P-R Int : 152 ms QRS Dur : 090 ms QT Int : 380 ms P-R-T Axes : 044 -14 033 degrees QTc Int : 435 ms Normal sinus rhythm Normal ECG When compared with ECG of 29-JUN-2022 21:27, No significant change was found Documented by User: Arlette Moore MD 06/01/24 09:43 [facility] Past Medical History Medical History Acid reflux RUQ pain HTN (hypertension) Asthma HIV (human immunodeficiency virus infection) Family History Family History Father Lung cancer Prostate CA Mother Colon cancer Breast cancer Paternal Aunt Breast cancer Maternal Aunt Breast cancer Maternal Aunt Breast cancer Family history of problems with anesthesia: No Surgical History Surgical History Hx of blepharoplasty History of lithotripsy History of breast surgery History of Problems with Anesthesia: No Social History Social History Household Members: Family Are you a primary assisted living care manager to a significant other at home: No Do you presently have visiting nurse or other home services: No Alcohol intake: never Patient Tobacco Use Status: Current someday Tobacco user Tobacco use type: Cigarette Smoked in Last 30 Days: Yes Patient Interested in Nicotine Replacement: No Have you been hit, kicked, punched, or otherwise hurt by someone within the past year? If so, by whom?: No Are you DNR?: No Advance Directives: No Advance Directives Information Provided: Yes Poor oral hygiene: No Current occupational status: disabled Meds Allergies Allergy/AdvReac Type Severity Reaction Status Date / Time No Known Allergies Allergy Verified 06/01/24 08:43 Home Medications ?Medication ?Instructions ?Recorded ?Confirmed ?Last Taken ?Type albuterol sulfate 90 mcg/actuation 2 puff PO Q6H PRN Shortness Of 01/23/21 05/27/24 Unknown History aerosol inhaler (ProAir HFA) Breath Or Wheezing amlodipine 10 mg tablet 10 mg PO QAM 01/23/21 05/27/24 06/01/24 History bictegravir 50 mg-emtricitabine 1 tab PO DAILY 01/23/21 05/27/24 Unknown History 200 mg-tenofovir alafenam 25 mg tablet (Biktarvy) calcium 600 mg (as 1 tab PO DAILY 01/23/21 05/27/24 Unknown History carbonate)-vitamin D3 10 mcg (400 unit) tablet cyclobenzaprine 5 mg tablet 5 mg PO QID PRN muscle spasm 01/23/21 05/27/24 Unknown History fluticasone propionate 110 2 puff PO BID 01/23/21 05/27/24 Unknown History mcg/actuation HFA aerosol inhaler (Flovent HFA) fluticasone propionate 50 1 spray intranasal BID 01/23/21 05/27/24 Unknown History mcg/actuation nasal spray,suspension furosemide 20 mg tablet 20 mg PO QAM 01/23/21 05/27/24 Unknown History melatonin 5 mg tablet 10 mg PO BEDTIME PRN Insomnia 01/23/21 05/27/24 Unknown History multivitamin-ferrous 1 tab PO QPM 01/23/21 05/27/24 Unknown History fumarate-folic acid 18 mg-400 mcg tablet (Certavite-Antioxidant) quetiapine 50 mg tablet 50 mg PO BEDTIME 01/23/21 05/27/24 Unknown History tramadol 50 mg tablet 50 - 100 mg PO Q8H PRN moderate 01/23/21 05/27/24 Unknown History pain doxepin 10 mg capsule 10 mg PO BEDTIME 11/25/23 05/27/24 Unknown History lidocaine 5 % topical patch 1 patch topical DAILY 11/25/23 05/27/24 Unknown History risperidone 2 mg tablet 2 mg PO BEDTIME 11/25/23 05/27/24 Unknown History tiotropium bromide 1.25 2 puff inhalation DAILY 11/25/23 05/27/24 Unknown History mcg/actuation mist for inhalation (Spiriva Respimat) varenicline tartrate 1 mg tablet 1 mg PO BID 11/25/23 05/27/24 Unknown History Exam Airway Mallampati Class: II TM Dist: >3cm Neck ROM: Full Loose/Missing/Broken Teeth: Yes, Upper and Lower Heart: rrr Lungs: cta Assessment and Plan Assessment Anesthesia Assessment: Anesthesia Plan Discussed and Chart Reviewed Final Anesthetic Review Family History of Problems with Anesthesia: No History of Problems with Anesthesia: No NPO: Yes ASA Class: III Final Preanesthetic Review: No Changes in Pt Med Stat, Meds/Allgs Chart Reviewed, Consent Obtained/Reviewed and Anes Risks/Benef Reviewed Patient Risk: Intermediate Procedure Risk: Low Anesthetic Plan Anesthetic Plan: GA Disposition: Standard PACU
--- NOTE | ~2024-06-01 | MM_ITS ---
Single left breast specimen radiograph demonstrates the tag and the marker clip within the specimen. Electronically signed by: Madeleine Boateng DO 06/01/2024 12:10 PM EDT
[2024-06-01 08:39] VITALS: BMI 39.3
[2024-06-01] MEDS: Lactated Ringers 1,000 ML 100 ML IVCONT (08:55)
[2024-06-01 08:58] VITALS: BP 133/74; PULSE 68; RESP 18; TEMP 36.8; O2SAT 97
--- NOTE | 2024-06-01 09:53 | MHC.SHP ---
Pre-Procedural Eval Section A - 24 Hr Update-Section A only Date of Service: 06/01/24 The patient is an INPATIENT: No Changes since office visit: Yes Patient answered all questions; No Cold of Flu in the past 2 weeks, No New Medical Problems and No Changes in Medication Section B - Complete if H&P > 30 days Chief Complaint: Other abnormal and inconclusive findings on diagno Details of Present Illness: No change in patient's symptoms. Relevant Family History (Specify if Yes): No Relevant Social History: None Present Medications: see Short Stay Collaborative assessment Medical History: No relevant PMH History of Previous Operations: No relevant previous surgery Allergies: Allergies Allergy/AdvReac Type Severity Reaction Status Date / Time No Known Allergies Allergy Verified 06/01/24 08:43 Review of Systems Sugical H&P ROS: Negative: Constitution, Cardiovascular, Respiratory, Hem-Onc, Allergic/Immunologic, Gastrointestinal, Genitourinary, Musculoskeletal and Integumentary Exam Surgical H&P Exam: Normal: HEENT, Normal: Heart, Normal: Lungs, Normal: Extremities, Normal: Abdomen, Normal: Skin and Normal: Neurological Plan Diagnosis/Plan: Unchanged I have reviewed the history and physical and performed a pertinent physical examination on my patient. No changes have occurred unless specified. Time Spent With Patient Time: Total time managing care of this patient today ____ minutes.
--- NOTE | 2024-06-01 11:45 | P.OP_ITS ---
Operative Note Operative Note Date of Service: 06/01/24 Narrative: Preoperative diagnosis: DCIS left breast Postoperative diagnosis: Same Procedure: Left breast lumpectomy with localizer Surgeon: Zach Siddiqui MD Sports Writer: Christian Potter PA-C Anesthesia: General LMA Indications for procedure: 58-year-old female patient presenting with a abnormal architectural distortion in the left breast and a subareolar location, status post stereotactic guided core biopsy which confirmed ductal carcinoma in- situ. She presents today for lumpectomy with localizer. Operative findings: Specimen x-ray confirmed localizer and previous clip within the specimen. Gross pathology revealed margins close to the posterior medial margin. Additional posterior medial margins obtained Specimen: Left breast lumpectomy, margin revision posterior medial margin Estimated blood loss: 15 mL Complications: None Procedure details: Patient was brought to the OR and placed in a supine position. After administering general anesthesia the patient's left breast was prepped with ChloraPrep and draped in a sterile fashion. A surgical time-out was called the consent confirmed. Patient received preoperative antibiotics and Venodyne boots were in place. Local anesthesia consisting of 0.5% Sensorcaine was infiltrated in a periareolar location at the upper portion of the breast. A curvilinear incision was made in the upper portion of the areola and carried down into the subcutaneous tissue. Superior and inferior skin flaps were then created with the electrocautery. Core of tissue surrounding the localizing clip was then performed beginning with the superior margin continue with the lateral margin, medial margin, inferior margin and then posterior margin. The specimen was removed and a specimen x-ray performed. This confirmed the marking clip within the specimen. Specimen was sent to pathology and margins felt to be minimally close to the posterior medial margin. Additional posterior medial margin was then obtained and sent as a permanent specimen. Hemostasis was then assured using electrocautery. Wounds were irrigated with saline solution and suctioned dry. Hemoclips were used to qi the biopsy cavity. Deep breast tissue was then reapproximated using interrupted 3-0 Polysorb sutures. Superficial breast tissue was reapproximated using interrupted 3-0 Polysorb sutures. Skin was then closed using a running subcuticular 4-0 Polysorb suture. Sterile dressings including Steri-Strips, 2 x 2 gauze and Tegaderm were then applied. The patient tolerated the procedure well. Sponge, instrument, and needle counts were reported as correct. The patient was transferred to PACU in stable condition.
[2024-06-01 11:50] VITALS: BP 153/82; PULSE 86; RESP 18; TEMP 36.3; O2SAT 100
[2024-06-01 11:55] VITALS: BP 139/62; PULSE 77; RESP 16; O2SAT 96
[2024-06-01 12:00] VITALS: BP 162/75; PULSE 77; RESP 16; O2SAT 95
[2024-06-01 12:05] VITALS: BP 146/77; PULSE 77; RESP 16; O2SAT 94
== END 2024-06-01 12:38 | disposition home or self-care (01) ==
PROVIDERS: PCP Nurse Practitioner Primary Care; Visit Provider Surgery
PROC: (CPT 19301; principal; 2024-06-01 11:30)
DX: D05.12 Intraductal carcinoma in situ of left breast (principal); Z17.0 Estrogen receptor positive status [ER+]; Z17.21 Progesterone receptor positive status; B20 Human immunodeficiency virus [HIV] disease; I10 Essential (primary) hypertension; J45.909 Unspecified asthma, uncomplicated; K21.9 Gastro-esophageal reflux disease without esophagitis; Z92.21 Personal history of antineoplastic chemotherapy; Z85.3 Personal history of malignant neoplasm of breast; Z92.3 Personal history of irradiation; Z80.3 Family history of malignant neoplasm of breast; Z79.899 Other long term (current) drug therapy; Z79.51 Long term (current) use of inhaled steroids; Z87.442 Personal history of urinary calculi
CPT/HCPCS: 19301; 88307; 88329; 88341; 88342; C1889; J0690; J1100; J2003; J2250; J2405; J2704

== ENCOUNTER → 2024-06-01 08:36 | Outpatient (BNV) | payer MEDICAID, SELFPAY | PROVIDERS: PCP Nurse Practitioner Primary Care; Visit Provider Surgery | DX: D05.12 Intraductal carcinoma in situ of left breast (principal) | CPT/HCPCS: 19301 ==

== ENCOUNTER 2024-06-08 08:55 | Outpatient (AMB) | payer MEDICAID, SELFPAY ==
--- NOTE | 2024-06-08 09:05 | MHC.OFFVIS ---
Vital Signs 06/08/24 09:09 Height 4 ft 8 in Weight 177 lb 4.026 oz BMI 39.7 BP 125/65 Blood Pressure Location Lt brachial Position Sitting Pulse 72 Intake Visit Reasons: post left breast lumpectomy Intake Note: Patient is seen in office for post op assessment post Left breast lumpectomy with localizer. Pt c/o: pain in the left breast, mostly when moving the arm, denies redness and discharge surgery:06/01/24 Fur Operator Required: Yes Fur Operator Language: Systems Developer Services: Fur Operator Present Fur Operator Name: Meka MCCAULEY Information Interpreted: non-clinical & clinical Hospital Secretary: Hospital Secretary Present Accompanied by: Self / Same As Patient Allergies No Known Allergies Allergy (Verified 06/08/24 09:09) Medication List - Last Reconciled 06/08/24 by Zach Siddiqui MD albuterol sulfate 90 mcg/actuation (ProAir HFA) 2 puffs PO Q6H PRN alum-mag hydroxide-simeth 400-400-40 mg/5 mL (Maalox Maximum Strength) 10 mL PO TID PRN amlodipine 10 mg PO QAM hlllxlsew-bnymzxgm-xiusyxc ala 50-200-25 mg (Biktarvy) 1 tab PO DAILY calcium carbonate-vitamin D3 600 mg-10 mcg (400 unit) 1 tab PO DAILY celecoxib (Celebrex) 200 mg PO BID 30 days cyclobenzaprine 5 mg PO QID PRN doxepin 10 mg PO BEDTIME fluticasone propionate 110 mcg/actuation (Flovent HFA) 2 puffs PO BID fluticasone propionate 50 mcg/actuation 1 spray intranasal BID furosemide 20 mg PO QAM lidocaine 5% 1 patch topical DAILY melatonin 10 mg PO BEDTIME PRN vposkazuntha-mhdo-zgota acid 18-400 mg-mcg (Certavite-Antioxidant) 1 tab PO QPM omeprazole 20 mg PO DAILY oxycodone 5 mg PO Q6H PRN quetiapine 50 mg PO BEDTIME risperidone 2 mg PO BEDTIME sucralfate 1 g PO TID tiotropium bromide 1.25 mcg/actuation (Spiriva Respimat) 2 puffs inhalation DAILY tramadol 50 - 100 mg PO Q8H PRN varenicline tartrate 1 mg PO BID HPI Comments Details: 58-year-old female patient returning 1 week following a 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 Initial screening mammogram performed on 02/09/2024 with additional images performed on 06/11/2024 revealed a group of punctate calcifications in the central left breast at mid depth felt to be suspicious for malignancy (BI-RADS 4). A stereotactic guided core biopsy was performed at the [facility] on 05/05/2024 which revealed the ductal carcinoma in-situ, grade 3 with necrosis and calcification, ER/MS positive. She has a prior history of a right breast lumpectomy performed in 2008 for breast cancer. She underwent chemotherapy followed by radiation therapy and antiestrogen therapy for approximately 5 years in [place]. Menarche was the age of 12. She is , 1st child at the age of 14. Menopause at 52. She has no history of hormone replacement therapy. Family history is significant for her mother having breast cancer as well as a maternal aunt and 2 paternal aunts with breast cancer. She has never undergone genetic testing. She tolerated the lumpectomy well but does report soreness around the area of incision and chest wall especially with changing of positions. She denies any bleeding or discharge from the incision. Pathology of the lumpectomy is pending at the time of this dictation. [facility] Medical History Acid reflux RUQ pain HTN (hypertension) Asthma HIV (human immunodeficiency virus infection) Surgical History History of lumpectomy of left breast (06/01/24) Hx of blepharoplasty History of lithotripsy History of breast surgery Family History Father Lung cancer Prostate CA Mother Colon cancer Breast cancer Paternal Aunt Breast cancer Maternal Aunt Breast cancer Maternal Aunt Breast cancer Social History Household Members: Family Are you a primary client care representative to a significant other at home: No Do you presently have visiting nurse or other home services: No Alcohol intake: never Patient Tobacco Use Status: Current someday Tobacco user Tobacco use type: Cigarette Current occupational status: disabled Female Reproductive History Menstrual Age of Menarche: 13 Review of Systems Const All systems reviewed & are unremarkable except as noted in HPI and below Physical Exam Vital Signs: Last Vital Signs Pulse 72 06/08/24 09:09 BP 125/65 06/08/24 09:09 BMI result Body Mass Index 39.7 Const General: comfortable Nutritional Appearance: well nourished Orientation/consciousness: patient oriented x3 Chest Other: Right breast: Exam deferred Left breast: Well-healed incision in the upper periareolar location with no evidence of hematoma/seroma. Minimal ecchymosis noted in the overlying skin. No evidence of wound infection. Steri-Strips remain intact. Chest/axillae images: 1. Incision left breast as noted above Resp Effort & Inspection: normal respiratory effort, no audible wheezes, no cough and no retractions GI Inspection: Yes normal to inspection Neuro Other: Mobility Assessment: 1. 3 meter assessment time (seconds) 4 2. Gait observations: Normal balance and gait General: patient oriented x3 Extrem General: No edema Assessment & Plan Assessment & Plan (1) Ductal carcinoma in situ (DCIS) of left breast: Code(s): D05.12 - Intraductal carcinoma in situ of left breast Category: Medical Plan 58-year-old female patient recently diagnosed with ductal carcinoma in-situ left breast now returning 1 week following left breast lumpectomy (T0). Pathology is pending at the time of this dictation. Examination reveals a well-healed incision in the left breast in the periareolar location. No evidence of hematoma/seroma/infection. A hematology/oncology consultation is recommended, and referral has been initiated. I will call her with the results of the pathology once available. She should return approximately 1 month for wound examination, sooner PRN. Orders: Referrals Hematology & Oncology Referral D05.12 - Intraductal carcinoma in situ of left breast Coding Level of Care Code Global (61092) Diagnoses Ductal carcinoma in situ (DCIS) of left breast D05.12
[2024-06-08 09:09] VITALS: BP 125/65; PULSE 72; BMI 39.7
--- OUTSIDE RECORDS SUMMARY | 2024-06-08 09:21 | XMS_ITS | Clinical Summary ---
Author Organization [facility] it Address [address] [place] [address] Care Team Providers Care Paper Stripper Name Role Phone Unavailable Primary Care Provider [...]
--- OUTSIDE RECORDS SUMMARY | 2024-06-08 09:21 | XMS_ITS | Clinical Summary ---
Author Organization [facility] Address [address] [place] [address] Care Team Providers Care Manager Office Services Name Role Phone Unavailable Primary Care Provider [...]
== END 2024-06-08 09:15 | disposition home or self-care (01) ==
LOC: HO.HGS 08:55
PROVIDERS: PCP Nurse Practitioner Primary Care; Visit Provider Surgery
DX: D05.12 Intraductal carcinoma in situ of left breast (principal)
CPT/HCPCS: 99024

== ENCOUNTER → 2024-06-08 08:55 | Outpatient (BNVA) | payer MEDICAID, SELFPAY | PROVIDERS: PCP Nurse Practitioner Primary Care; Visit Provider Surgery | DX: D05.12 Intraductal carcinoma in situ of left breast (principal); Z98.890 Other specified postprocedural states | CPT/HCPCS: 99212 ==

== ENCOUNTER 2024-06-23 09:50 | Outpatient (AMB) | payer MEDICAID, SELFPAY ==
--- NOTE | 2024-06-23 09:51 | A.OFFVIS_ITS ---
Vital Signs 06/23/24 09:57 Height 4 ft 8 in Weight 179 lb BMI 40.1 BP 144/71 H Blood Pressure Location Lt brachial Position Sitting Pulse 76 Intake Visit Reasons: discuss pathology results, post lumpectomy Intake Note: Patient is seen in office to discuss pathology results, post lumpectomy. Pt c/o: no concerns or changes here to discuss results Bed And Breakfast Innkeeper Required: Yes Bed And Breakfast Innkeeper Language: Wood Heel Finisher Services: Bed And Breakfast Innkeeper Present Bed And Breakfast Innkeeper Name: Meka MCCAULEY Information Interpreted: clinical only Cutter And Presser: Cutter And Presser Present Accompanied by: Self / Same As Patient Allergies No Known Allergies Allergy (Verified 06/23/24 09:52) Medication List - Last Reconciled 06/23/24 by Zach Siddiqui MD albuterol sulfate 90 mcg/actuation (ProAir HFA) 2 puffs PO Q6H PRN alum-mag hydroxide-simeth 400-400-40 mg/5 mL (Maalox Maximum Strength) 10 mL PO TID PRN amlodipine 10 mg PO QAM xllwzrhru-sexiydnx-bjgnjen ala 50-200-25 mg (Biktarvy) 1 tab PO DAILY calcium carbonate-vitamin D3 600 mg-10 mcg (400 unit) 1 tab PO DAILY celecoxib (Celebrex) 200 mg PO BID 30 days cyclobenzaprine 5 mg PO QID PRN doxepin 10 mg PO BEDTIME fluticasone propionate 110 mcg/actuation (Flovent HFA) 2 puffs PO BID fluticasone propionate 50 mcg/actuation 1 spray intranasal BID furosemide 20 mg PO QAM lidocaine 5% 1 patch topical DAILY melatonin 10 mg PO BEDTIME PRN pewcbzeuyyaq-wukp-igyfm acid 18-400 mg-mcg (Certavite-Antioxidant) 1 tab PO QPM omeprazole 20 mg PO DAILY oxycodone 5 mg PO Q6H PRN quetiapine 50 mg PO BEDTIME risperidone 2 mg PO BEDTIME sucralfate 1 g PO TID tiotropium bromide 1.25 mcg/actuation (Spiriva Respimat) 2 puffs inhalation DAILY tramadol 50 - 100 mg PO Q8H PRN varenicline tartrate 1 mg PO BID HPI Comments Details: 58-year-old female patient returning 1 week following a 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 Initial screening mammogram performed on 02/09/2024 with additional images performed on 06/11/2024 revealed a group of punctate calcifications in the central left breast at mid depth felt to be suspicious for malignancy (BI-RADS 4). A stereotactic guided core biopsy was performed at the [facility] on 05/05/2024 which revealed the ductal carcinoma in-situ, grade 3 with necrosis and calcification, ER/VT positive. She has a prior history of a right breast lumpectomy performed in 2008 for breast cancer. She underwent chemotherapy followed by radiation therapy and antiestrogen therapy for approximately 5 years in [place]. Menarche was the age of 12. She is , 1st child at the age of 14. Menopause at 52. She has no history of hormone replacement therapy. Family history is significant for her mother having breast cancer as well as a maternal aunt and 2 paternal aunts with breast cancer. She has never undergone genetic testing. She returns today to review the pathology results which have now returned. Pathology revealed invasive ductal carcinoma, grade 2, less than 1 mm in size with negative margins. There was also ductal carcinoma in-situ grade 3 with negative margins but less than 1 mm to the inferior anterior margin and 1 mm to the posterior margin. Estrogen receptor positive, progesterone receptor low positive, HER2 Shawn negative. Revision of the left posterior margin revealed benign breast tissue and skeletal muscle with no carcinoma identified. Upgrade to invasive carcinoma was discussed with the patient along with the need for wider excision and sentinel node biopsy. [facility] Medical History (Updated 06/23/24 @ 11:12 by Zach Siddiqui MD) Invasive ductal carcinoma of left breast Acid reflux RUQ pain HTN (hypertension) Asthma HIV (human immunodeficiency virus infection) Surgical History History of lumpectomy of left breast (06/01/24) Hx of blepharoplasty History of lithotripsy History of breast surgery Family History Father Lung cancer Prostate CA Mother Colon cancer Breast cancer Paternal Aunt Breast cancer Maternal Aunt Breast cancer Maternal Aunt Breast cancer Social History Household Members: Family Are you a primary career services director to a significant other at home: No Do you presently have visiting nurse or other home services: No Alcohol intake: never Patient Tobacco Use Status: Current someday Tobacco user Tobacco use type: Cigarette Current occupational status: disabled Female Reproductive History Menstrual Age of Menarche: 13 Review of Systems Const All systems reviewed & are unremarkable except as noted in HPI and below Physical Exam Vital Signs: Last Vital Signs Pulse 76 06/23/24 09:57 BP 144/71 H 06/23/24 09:57 BMI result Body Mass Index 40.1 Const General: comfortable Nutritional Appearance: well nourished Orientation/consciousness: patient oriented x3 Chest Other: Right breast: Exam deferred Left breast: Well-healed incision in the upper periareolar location with no evidence of hematoma/seroma. Minimal ecchymosis noted in the overlying skin. No evidence of wound infection. Steri-Strips remain intact. Resp Effort & Inspection: normal respiratory effort, no audible wheezes, no cough and no retractions GI Inspection: Yes normal to inspection Neuro Other: Mobility Assessment: 1. 3 meter assessment time (seconds) 4 2. Gait observations: Normal balance and gait General: patient oriented x3 Extrem General: No edema Assessment & Plan Assessment & Plan (1) Invasive ductal carcinoma of left breast: Code(s): C50.912 - Malignant neoplasm of unspecified site of left female breast Category: Medical (2) Ductal carcinoma in situ (DCIS) of left breast: Code(s): D05.12 - Intraductal carcinoma in situ of left breast Category: Medical Plan 58-year-old female patient with a newly diagnosed invasive ductal carcinoma of the left breast. Recent pathology upgraded the results to invasive ductal carcinoma along with the DCIS. Margins were negative but close for the DCIS therefore wider excision is required. In addition patient will need sentinel node biopsy. After a discussion of the procedure, risks, and alternatives, she consents to the surgery. She will be scheduled as a short-stay surgery at her earliest convenience. Coding Level of Care Code Global (90164) Diagnoses Invasive ductal carcinoma of left breast C50.912 Ductal carcinoma in situ (DCIS) of left breast D05.12
[2024-06-23 09:57] VITALS: BP 144/71; PULSE 76; BMI 40.1
--- OUTSIDE RECORDS SUMMARY | 2024-06-23 10:43 | XMS_ITS | Clinical Summary ---
Author Organization [facility] it Address [address] [place] [address] Care Team Providers Care Staffing Assistant Name Role Phone Unavailable Primary Care [...]
--- OUTSIDE RECORDS SUMMARY | 2024-06-23 10:43 | XMS_ITS | Clinical Summary ---
Author Organization [facility] Address [address] [place] [address] Care Team Providers Care Block Handler Name Role Phone Unavailable Primary Care Provider [...]
== END 2024-06-23 10:17 | disposition home or self-care (01) ==
LOC: HO.HGS 09:50
PROVIDERS: PCP Nurse Practitioner Primary Care; Visit Provider Surgery
DX: C50.912 Malignant neoplasm of unspecified site of left female breast (principal); D05.12 Intraductal carcinoma in situ of left breast
CPT/HCPCS: 99024

== ENCOUNTER → 2024-06-23 09:50 | Outpatient (BNVA) | payer MEDICAID, SELFPAY | PROVIDERS: PCP Nurse Practitioner Primary Care; Visit Provider Surgery | DX: D05.12 Intraductal carcinoma in situ of left breast (principal) | CPT/HCPCS: 99212 ==

== ENCOUNTER → 2024-06-27 13:33 | Outpatient (BNV) | payer MEDICAID, SELFPAY | PROVIDERS: PCP Nurse Practitioner Primary Care; Referring Provider Surgery; Visit Provider Internal Medicine Medical Oncology | DX: C50.112 Malignant neoplasm of central portion of left female breast (principal) | CPT/HCPCS: 99204 ==

== ENCOUNTER → 2024-07-27 06:34 | Outpatient (BNV) | payer MEDICAID, SELFPAY | PROVIDERS: PCP Nurse Practitioner Primary Care; Visit Provider Radiology Diagnostic Radiology | DX: N63.32 Unspecified lump in axillary tail of the left breast (principal) | CPT/HCPCS: 78195 ==

== ENCOUNTER 2024-07-27 06:42 | Day surgery (SDC) | payer MEDICAID, SELFPAY ==
--- OUTSIDE RECORDS SUMMARY | 2024-07-20 15:04 | XMS_ITS | Clinical Summary ---
Author Organization [facility] ity Address [address] [place] [address] Care Team Providers Care Ship'S Master Name Role Phone Unavailable Primary Care Provider [...] DTaP,Tdap,and Td Vaccines (1 - Tdap) 07/09/1983 Pneumococcal Vaccine: 50+ Ye ars (1 [...] patient's age to complete this topic Hepatitis B Vaccines Aged Out No long er eligible [...]
[2024-07-25 09:09] VITALS: BMI 40.1
--- NOTE | 2024-07-26 09:05 | HO.ANESPROP2 ---
Documented by User: Debra Holguin NP 07/26/24 09:07 HPI - Anesthesia Eval Consult details Narrative: 59yo F for Left Wider Breast Excision Mass, LEFT Axillary [place] Node Biopsy s/p lumpectomy 05/2024 with GA-LMA 4 Chronic LE edema d/t venous insufficiency, doesn't wear compression socks as rx'd. ECHO done 05/2024 WNL PMFSH Active Problems Active Problems: All Active Problems Invasive ductal carcinoma of left breast (Acute) Ductal carcinoma in situ (DCIS) of left breast (Acute) Abnormal mammogram of left breast (Acute) Left ankle tendonitis (Acute) Acid reflux (Acute) RUQ pain (Acute) Past Medical History Medical History (Updated 06/27/24 @ 13:59 by Wandy Reddy MD) Invasive ductal carcinoma of left breast Acid reflux RUQ pain HTN (hypertension) Asthma HIV (human immunodeficiency virus infection) Family History Family History Father Lung cancer Prostate CA Mother Colon cancer Breast cancer Paternal Aunt Breast cancer Maternal Aunt Breast cancer Maternal Aunt Breast cancer Family history of problems with anesthesia: No Surgical History Surgical History History of lumpectomy of left breast (06/01/24) Hx of blepharoplasty History of lithotripsy History of breast surgery History of Problems with Anesthesia: No Social History Social History (Updated 06/27/24 @ 14:07 by Meka Castro) Household Members: None Housing: Apartment Are you a primary palliative care nurse to a significant other at home: No Do you presently have visiting nurse or other home services: No Alcohol intake: never Patient Tobacco Use Status: Current everyday Tobacco user Tobacco use type: Cigarette Cigarettes Per Day: 2 Smoked in Last 30 Days: Yes Use of substances other than those prescribed or required for medical reasons: No Have you been hit, kicked, punched, or otherwise hurt by someone within the past year? If so, by whom?: No Are you DNR?: No Advance Directives: No Advance Directives Information Provided: No Advance Directives on File: No Patient : No : No Poor oral hygiene: No service: No Current occupational status: disabled Meds Allergies Allergy/AdvReac Type Severity Reaction Status Date / Time No Known Allergies Allergy Verified 07/27/24 07:14 Home Medications ?Medication ?Instructions ?Recorded ?Confirmed ?Last Taken ?Type albuterol sulfate 90 mcg/actuation 2 puff PO Q6H PRN Shortness Of 01/23/21 07/27/24 Unknown History aerosol inhaler (ProAir HFA) Breath Or Wheezing amlodipine 10 mg tablet 10 mg PO QAM 01/23/21 07/27/24 07/26/24 History bictegravir 50 mg-emtricitabine 1 tab PO DAILY 01/23/21 07/27/24 07/26/24 History 200 mg-tenofovir alafenam 25 mg tablet (Biktarvy) fluticasone propionate 110 2 puff PO BID 01/23/21 07/27/24 Unknown History mcg/actuation HFA aerosol inhaler (Flovent HFA) furosemide 20 mg tablet 20 mg PO QAM 01/23/21 07/27/24 07/26/24 History quetiapine 50 mg tablet 50 mg PO BEDTIME 01/23/21 07/27/24 Unknown History doxepin 10 mg capsule 10 mg PO BEDTIME 11/25/23 07/27/24 Unknown History risperidone 2 mg tablet 2 mg PO BEDTIME 11/25/23 07/27/24 Unknown History tiotropium bromide 1.25 2 puff inhalation DAILY 11/25/23 07/27/24 Unknown History mcg/actuation mist for inhalation (Spiriva Respimat) Exam Height,Weight and Vital Signs: Height 4 ft 8 in Weight 81.193 kg Pertinent Lab Results Pertinent Lab Results: Laboratory Tests 06/27/24 14:55 WBC 7.0 Hgb 12.6 Hct 39.6 Plt Count 303 Sodium 142 Potassium 4.2 Chloride 105 Carbon Dioxide 28 BUN 11 Creatinine 0.84 Narrative Narrative: ECHO 05/2024 Conclusions: - The left ventricular systolic function is normal. The calculated ejection fraction is 60% by biplane method. - No obvious valvular pathology seen on this study. EKG 2023 Vent. Rate : 079 BPM Atrial Rate : 079 BPM P-R Int : 152 ms QRS Dur : 090 ms QT Int : 380 ms P-R-T Axes : 044 -14 033 degrees QTc Int : 435 ms Normal sinus rhythm Normal ECG When compared with ECG of 29-JUN-2022 21:27, No significant change was found Assessment and Plan Assessment Anesthesia Assessment: Chart Reviewed Final Anesthetic Review Family History of Problems with Anesthesia: No History of Problems with Anesthesia: No Documented by User: Wendy Alexander MD 07/27/24 09:59 [facility] Past Medical History Medical History (Updated 06/27/24 @ 13:59 by Wandy Reddy MD) Invasive ductal carcinoma of left breast Acid reflux RUQ pain HTN (hypertension) Asthma HIV (human immunodeficiency virus infection) Family History Family History Father Lung cancer Prostate CA Mother Colon cancer Breast cancer Paternal Aunt Breast cancer Maternal Aunt Breast cancer Maternal Aunt Breast cancer Surgical History Surgical History History of lumpectomy of left breast (06/01/24) Hx of blepharoplasty History of lithotripsy History of breast surgery Social History Social History (Updated 06/27/24 @ 14:07 by Meka Castro) Household Members: None Housing: Apartment Are you a primary palliative care nurse to a significant other at home: No Do you presently have visiting nurse or other home services: No Alcohol intake: never Patient Tobacco Use Status: Current everyday Tobacco user Tobacco use type: Cigarette Cigarettes Per Day: 2 Smoked in Last 30 Days: Yes Use of substances other than those prescribed or required for medical reasons: No Have you been hit, kicked, punched, or otherwise hurt by someone within the past year? If so, by whom?: No Are you DNR?: No Advance Directives: No Advance Directives Information Provided: No Advance Directives on File: No Patient : No : No Poor oral hygiene: No service: No Current occupational status: disabled Meds Allergies Allergy/AdvReac Type Severity Reaction Status Date / Time No Known Allergies Allergy Verified 07/27/24 07:14 Home Medications ?Medication ?Instructions ?Recorded ?Confirmed ?Last Taken ?Type albuterol sulfate 90 mcg/actuation 2 puff PO Q6H PRN Shortness Of 01/23/21 07/27/24 Unknown History aerosol inhaler (ProAir HFA) Breath Or Wheezing amlodipine 10 mg tablet 10 mg PO QAM 01/23/21 07/27/24 07/26/24 History bictegravir 50 mg-emtricitabine 1 tab PO DAILY 01/23/21 07/27/24 07/26/24 History 200 mg-tenofovir alafenam 25 mg tablet (Biktarvy) fluticasone propionate 110 2 puff PO BID 01/23/21 07/27/24 Unknown History mcg/actuation HFA aerosol inhaler (Flovent HFA) furosemide 20 mg tablet 20 mg PO QAM 01/23/21 07/27/24 07/26/24 History quetiapine 50 mg tablet 50 mg PO BEDTIME 01/23/21 07/27/24 Unknown History doxepin 10 mg capsule 10 mg PO BEDTIME 11/25/23 07/27/24 Unknown History risperidone 2 mg tablet 2 mg PO BEDTIME 11/25/23 07/27/24 Unknown History tiotropium bromide 1.25 2 puff inhalation DAILY 11/25/23 07/27/24 Unknown History mcg/actuation mist for inhalation (Spiriva Respimat) Exam Airway Mallampati Class: II (missing a coupke teeth, denies anything loose) TM Dist: >3cm Neck ROM: Full Heart: rrr Lungs: cta Assessment and Plan Assessment Anesthesia Assessment: Anesthesia Plan Discussed Final Anesthetic Review NPO: Yes ASA Class: III Final Preanesthetic Review: No Changes in Pt Med Stat, Meds/Allgs Chart Reviewed and Consent Obtained/Reviewed Patient Risk: Low Procedure Risk: Low Anesthetic Plan Anesthetic Plan: GA Disposition: Standard PACU
--- NOTE | ~2024-07-27 | NM_ITS ---
EXAMINATION: Left breast lymphoscintigraphy. CLINICAL INDICATION: Left breast cancer. COMPARISON: None. TECHNIQUE: Following explaining left breast lymphoscintigraphy procedure, benefits and risk, a written consent was obtained. Patient was placed supine on ultrasound table and area around the left breast areola was cleaned of 4% lidocaine jelly which was applied 30 minutes prior to this test. 0.5 mCi of 99m Tc lymphoseek was injected in 4 quadrants around the left breast areola and imaging obtained 30 minutes later. Patient tolerated procedure extremely well. FINDINGS: There is four-quadrant focal activity seen surrounding the left breast areola. On subsequent images there is a solitary lymph node activity seen along the anterior axilla consistent with sentinel node. No additional areas of focal activity seen in the axilla or the mediastinum. NM/NM sentinel node w imaging IMPRESSION: Solitary lymph node activity left anterior axilla on left breast lymphoscintigraphy. Electronically signed by: Sony Bianchi MD 07/27/2024 10:02 AM EDT
[2024-07-27] MEDS: Lidocaine 4 % Cream KIT 1 APPL TOPICAL (07:05)
[2024-07-27 07:18] VITALS: BMI 39.9
[2024-07-27 07:43] VITALS: BP 141/73; PULSE 62; RESP 16; TEMP 36.7; O2SAT 98
--- NOTE | 2024-07-27 08:48 | MHC.SHP ---
Pre-Procedural Eval Section A - 24 Hr Update-Section A only Date of Service: 07/27/24 The patient is an INPATIENT: No Changes since office visit: Yes Patient answered all questions; No Cold of Flu in the past 2 weeks, No New Medical Problems and No Changes in Medication The patient has been examined within 24 hours of the surgical procedure. The History & Physical has been completed within 30 days and I have reviewed it.: No Section B - Complete if H&P > 30 days Chief Complaint: Malignant neoplasm of unspecified site,intraductal Details of Present Illness: No change in patient's symptoms. She denies any breast pain at this time. Relevant Family History (Specify if Yes): No Relevant Social History: Tobacco Use Present Medications: see Short Stay Collaborative assessment Medical History: No relevant PMH History of Previous Operations: Relevant previous surgery/procedure and date(s) (Previous lumpectomy with localizer left breast, positive margins for DCIS) Allergies: Allergies Allergy/AdvReac Type Severity Reaction Status Date / Time No Known Allergies Allergy Verified 07/27/24 07:14 Review of Systems Sugical H&P ROS: Negative: Constitution, Cardiovascular, Respiratory, Neurological, Psychiatric, Hem-Onc, Allergic/Immunologic, Gastrointestinal, Genitourinary, Musculoskeletal, Integumentary, Endocrine and Eyes/Ears/Nose/Throat Exam Surgical H&P Exam: Normal: HEENT, Normal: Heart, Normal: Lungs, Normal: Extremities, Normal: Abdomen, Normal: Skin and Normal: Neurological Plan Diagnosis/Plan: Unchanged I have reviewed the history and physical and performed a pertinent physical examination on my patient. No changes have occurred unless specified. Time Spent With Patient Time: Total time managing care of this patient today ____ minutes.
[2024-07-27] MEDS: Lactated Ringers 1,000 ML 100 ML IVCONT (09:02)
[2024-07-27] MEDS: ceFAZolin Sodium/Dextrose,Iso 2 GM/50 ML PIGGYBACK IV (10:30)
--- NOTE | 2024-07-27 11:48 | P.OP_ITS ---
Operative Note Operative Note Date of Service: 07/27/24 Narrative: Preoperative diagnosis: Left breast invasive ductal carcinoma with DCIS Postoperative diagnosis: Same Procedure: Wider excision left breast invasive ductal carcinoma, left axillary sentinel node biopsy Surgeon: Zach Siddiqui MD Platform Beater: Christian Potter PA-C, Kellie Rodríguez, MS-3 Anesthesia: General LMA Indications for procedure: 59-year-old female patient recently found to have DCIS of the left breast. Subsequent lumpectomy revealed invasive ductal carcinoma with negative margins however DCIS came within 1 mm of the margins at both the posterior and inferior anterior margins. She returns today for a wider excision of the left breast lumpectomy as well as axillary sentinel node biopsy. Operative findings: Biopsy cavity noted during dissection. Single sentinel node identified. No additional palpable or radioactive nodes were identified. Bluish discoloration within the lymph node suggestive of tattoo ink. Specimen: 1. Wider excision left breast lumpectomy, 2. Left axillary sentinel node 1. Estimated blood loss: 10 mL Complications: None Procedure details: Patient was brought to the OR and placed in a supine position. After administering general anesthesia the patient's left breast was prepped with ChloraPrep and draped in a sterile fashion. A surgical time-out was called the consent confirmed. Patient received preoperative antibiotics and Venodyne boots were in place. The patient's previous incision was located margin of the areola at the superior portion of the breast. Local anesthesia was infiltrated around the previous incision. Incision was then made over the previous incision and carried out through the subcutaneous tissue. Superior and inferior skin flaps were then created using electrocautery. Electrocautery was then used to dissect a core of breast tissue surrounding this previous excision site to include the superior medial, lateral, inferior, and posterior margins. The specimen was marked with a long suture at the lateral margin, short suture at the superior margin and looped suture at the posterior margin. Specimen was passed off the table and sent to pathology as a routine specimen. Attention was then directed to the axilla with the gamma probe was used to identify the area of increased activity. This was located in the anterior axilla. Incision was then made with a scalpel in a curvilinear fashion and carried out through subcutaneous tissue, past clavipectoral fascia into the axillary compartment. A palpable node was noted which had the elevated counts. This was grasped with an Allis clamp and dissected free from the surrounding axillary tissue. The node was dissected free and checked with the gamma probe. This confirmed the sentinel node with counts of 2063 and was sent as sentinel node 1. No additional enlarged lymph nodes or radioactive nodes were identified following this removal. Wounds were then irrigated with saline solution and suctioned dry. Wounds were checked for hemostasis was assured using electrocautery. Clavipectoral fascia was then reapproximated using interrupted 3-0 Polysorb sutures. Dermis was reapproximated using interrupted 3-0 Polysorb sutures. Skin was then closed using a running subcuticular 4-0 Polysorb suture. Breast incision was irrigated with saline solution and suctioned dry. Breast excision cavity was marked using small hemoclips in anticipation of radiation therapy. Deep breast tissue was reapproximated using interrupted 3-0 Polysorb sutures. Dermis was reapproximated using interrupted 3-0 Polysorb sutures. Skin was then closed using a running subcuticular 4-0 Polysorb suture. Steri- Strips, 4 x 4 gauze and Tegaderm were then applied to both incisions. The patient tolerated the procedure well. Sponge, instrument, and needle counts were reported as correct. The patient was transferred to PACU in stable condition. Breast [place] Node Biopsy Substrate(s) used for sentinel node biopsy in the non-neoadjuvant setting: Radiotracer Substrate(s) used for sentinel node biopsy in the neoadjuvant setting: N/A All colored nodes or non-colored nodes present at the end of a dye filled lymphatic channel were removed, if dye was used as the substrate for localization: N/A All significantly radioactive nodes were removed, if radionuclide was used as the substrate for localization: Yes All palpably suspicious nodes were removed, if present: Yes If clips were placed in pathology-involved nodes, those nodes were identified and removed: N/A Procedure performed with curative intent?: Yes General Surg. - Synoptic Notes Breast [place] Node Biopsy Substrate(s) used for sentinel node biopsy in the non-neoadjuvant setting: Radiotracer Substrate(s) used for sentinel node biopsy in the neoadjuvant setting: N/A All colored nodes or non-colored nodes present at the end of a dye filled lymphatic channel were removed, if dye was used as the substrate for localization: N/A All significantly radioactive nodes were removed, if radionuclide was used as the substrate for localization: Yes All palpably suspicious nodes were removed, if present: Yes If clips were placed in pathology-involved nodes, those nodes were identified and removed: N/A Procedure performed with curative intent?: Yes
[2024-07-27 11:52] VITALS: BP 147/82; PULSE 73; RESP 16; TEMP 36.1; O2SAT 98
[2024-07-27 11:57] VITALS: BP 147/74; PULSE 71; RESP 16; O2SAT 94
[2024-07-27 12:02] VITALS: BP 123/67; PULSE 69; RESP 18; O2SAT 95
[2024-07-27 12:07] VITALS: BP 127/60; PULSE 64; RESP 18; O2SAT 95
[2024-07-27 12:19] VITALS: BP 132/66; PULSE 66; RESP 18; TEMP 36.2; O2SAT 96
== END 2024-07-27 12:43 | disposition home or self-care (01) ==
PROVIDERS: PCP Nurse Practitioner Primary Care; Visit Provider Surgery
PROC: (CPT 19301; principal; 2024-07-27 11:00)
DX: C50.912 Malignant neoplasm of unspecified site of left female breast (principal); C77.3 Secondary and unspecified malignant neoplasm of axilla and upper limb lymph nodes; Z17.0 Estrogen receptor positive status [ER+]; Z17.21 Progesterone receptor positive status; Z17.32 Human epidermal growth factor receptor 2 negative status; B20 Human immunodeficiency virus [HIV] disease; I10 Essential (primary) hypertension; J45.909 Unspecified asthma, uncomplicated; Z79.51 Long term (current) use of inhaled steroids; Z79.624 Long term (current) use of inhibitors of nucleotide synthesis; Z79.899 Other long term (current) drug therapy; Z85.3 Personal history of malignant neoplasm of breast; Z92.21 Personal history of antineoplastic chemotherapy; Z92.3 Personal history of irradiation; K21.9 Gastro-esophageal reflux disease without esophagitis; Z87.442 Personal history of urinary calculi; Z98.890 Other specified postprocedural states; F17.210 Nicotine dependence, cigarettes, uncomplicated
CPT/HCPCS: 19301; 38525; 38900; 78195; 88307; 88341; 88342; A9520; C1889; J0131; J0690; J1100; J1885; J2003; J2250; J2405; J2704; J3010

== ENCOUNTER → 2024-07-27 06:42 | Outpatient (BNV) | payer MEDICAID, SELFPAY | PROVIDERS: PCP Nurse Practitioner Primary Care; Visit Provider Surgery | DX: C50.912 Malignant neoplasm of unspecified site of left female breast (principal) | CPT/HCPCS: 19301; 38525; 38900 ==

== ENCOUNTER 2024-08-05 | Outpatient (REF) | payer MEDICAID, SELFPAY ==
--- OUTSIDE RECORDS SUMMARY | 2024-08-09 13:28 | XMS_ITS | Clinical Summary ---
Author Organization [facility] ity Address [address] [place] [address] Care Team Providers Care Compliance Spec Name Role Phone Unavailable Primary Care Provider [...]
--- OUTSIDE RECORDS SUMMARY | 2024-08-09 13:28 | XMS_ITS | Clinical Summary ---
Author Organization [facility] Address [address] [place] [address] Care Team Providers Care Soil Fertility Specialist Name Role Phone Unavailable Primary Care Provider [...] 52 07/20/2018 1:39 PM EDT Temperature 36.4 C (97.5 F) 07/20/2018 1:39 PM EDT Respiratory Rate - - Oxygen Saturation - - Inhaled Oxygen Concentration - - Weight 65.8 kg (145 lb) 07/20/2018 1:39 PM EDT Height 137.2 cm (4' 6 ) 07/20/2018 1:39 PM EDT Body Mass Index 34.96 07/20/2018 1:39 PM EDT Plan of Treatment Health Maintenance Due Date Last Done Comments Hepatitis C Screening 1964 COVID-19 Vaccine (#1) 1969 Pneumococcal Vaccine (1 of 2 - PCV) 1970 Depression Screening 1976 Preventative Health Evaluation 1982 DTap / Tdap / Td (1 - Tdap) 07/09/1983 Shingrix-Zoster Vaccine (1 of 2) 07/09/1983 Cervical Cancer Screening (P ap Smear) 1985 Colon Cancer Screening (Colonoscopy) 2009 Breast Cancer Screening (Mammogram) 2014 Influenza Vaccine (Season Ended) 2024 RSV Adult > 60+ Yrs or Pregn ant (1 - 1-dose 75+ series) 07/09/2039 Hepatitis B Vaccines Aged Out No long er eligible based on patient's age to complete this topic RSV Ped < 20 months Aged Out No longe r eligible based on patient's age to complete this topic
== END 2024-08-05 00:01 | disposition home or self-care (01) ==
LOC: CF
PROVIDERS: PCP Nurse Practitioner Primary Care; Visit Provider Surgery
DX: C50.412 Malignant neoplasm of upper-outer quadrant of left female breast (principal); Z98.890 Other specified postprocedural states
CPT/HCPCS: 99212

== ENCOUNTER 2024-08-05 10:42 | Outpatient (AMB) | payer MEDICAID, SELFPAY ==
--- NOTE | 2024-08-05 10:46 | A.OFFVIS_ITS ---
Vital Signs 3 08/05/24 10:58 Height 4 ft 8 in Weight 178 lb 9.191 oz BMI 40.0 BP 136/69 Blood Pressure Location Lt brachial Position Sitting Pulse 66 Intake Visit Reasons: S/P Lt. brst wider excision, Lt axillary SN bx Intake Note: Patient is seen in office for post op assessment post left breast lumpectomy (wider excision). 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 Services: Rug Sample Beveler Present Rug Sample Beveler Name: Meka MCCAULEY Information Interpreted: non-clinical & clinical Adzing And Boring Machine Feeder: Adzing And Boring Machine Feeder Present Accompanied by: Self / Same As Patient Allergies No Known Allergies Allergy (Verified 08/05/24 10:58) Medication List - Last Reconciled 08/05/24 by Zach Siddiqui MD albuterol sulfate 90 mcg/actuation (ProAir HFA) 2 puffs PO Q6H PRN amlodipine 10 mg PO QAM toqoxzqtw-gjdqgiwg-epmvrqw ala 50-200-25 mg (Biktarvy) 1 tab PO DAILY cholecalciferol (vitamin D3) (Vitamin D3) 125 mcg PO DAILY doxepin 10 mg PO BEDTIME fluticasone propionate 110 mcg/actuation (Flovent HFA) 2 puffs PO BID furosemide 20 mg PO QAM oxycodone 5 mg PO Q6H PRN quetiapine 50 mg PO BEDTIME risperidone 2 mg PO BEDTIME tiotropium bromide 1.25 mcg/actuation (Spiriva Respimat) 2 puffs inhalation DAILY HPI Comments Details: 58-year-old female patient returning 1 week following a 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 Initial screening mammogram performed on 02/09/2024 with additional images performed on 06/11/2024 revealed a group of punctate calcifications in the central left breast at mid depth felt to be suspicious for malignancy (BI-RADS 4). A stereotactic guided core biopsy was performed at the [facility] on 05/05/2024 which revealed the ductal carcinoma in-situ, grade 3 with necrosis and calcification, ER/FL positive. She has a prior history of a right breast lumpectomy performed in 2008 for breast cancer. She underwent chemotherapy followed by radiation therapy and antiestrogen therapy for approximately 5 years in [place]. Menarche was the age of 12. She is , 1st child at the age of 14. Menopause at 52. She has no history of hormone replacement therapy. Family history is significant for her mother having breast cancer as well as a maternal aunt and 2 paternal aunts with breast cancer. She has never undergone genetic testing. Pathology revealed invasive ductal carcinoma, grade 2, less than 1 mm in size with negative margins. There was also ductal carcinoma in-situ grade 3 with negative margins but less than 1 mm to the inferior anterior margin and 1 mm to the posterior margin. Estrogen receptor positive, progesterone receptor low positive, HER2 Shawn negative. Revision of the left posterior margin revealed benign breast tissue and skeletal muscle with no carcinoma identified. Upgrade to invasive carcinoma was discussed with the patient along with the need for wider excision and sentinel node biopsy. She subsequently underwent left breast wider excision with sentinel node biopsy on 07/27/2024. Final pathology reveals: A. Breast, left, re-excision: -Ductal carcinoma in situ, nuclear grade 3. -24 mm estimated span (this specimen). -2 mm to posterior margin. -No residual invasive tumor identified. -Fibrocystic change with focal apocrine metaplasia and secretory gland changes. -Previous excision cavity changes. B. Lymph node, left sentinel #, [id number], biopsy: -One of two lymph nodes positive for isolated tumor cells (pN0 (i+)). -Tattoo pigment noted. She tolerated the procedure well but mainly complains of left axillary pain PFSH Medical History Invasive ductal carcinoma of left breast Acid reflux RUQ pain HTN (hypertension) Asthma HIV (human immunodeficiency virus infection) Surgical History History of lumpectomy of left breast (07/27/24) Hx of blepharoplasty History of lithotripsy History of breast surgery Family History Father Lung cancer Prostate CA Mother Colon cancer Breast cancer Paternal Aunt Breast cancer Maternal Aunt Breast cancer Maternal Aunt Breast cancer Social History Household Members: None Housing: Apartment Are you a primary nursing care partner to a significant other at home: No Do you presently have visiting nurse or other home services: No Alcohol intake: never Patient Tobacco Use Status: Current everyday Tobacco user Tobacco use type: Cigarette Cigarettes Per Day: 2 service: No Current occupational status: disabled Female Reproductive History Menstrual Age of Menarche: 13 Physical Exam Vital Signs: Last Vital Signs Pulse 66 08/05/24 10:58 BP 136/69 08/05/24 10:58 BMI result Body Mass Index 40.0 Const General: comfortable Nutritional Appearance: well nourished Orientation/consciousness: patient oriented x3 Chest Other: Right breast: Exam deferred Left breast: Well-healed incision in the upper periareolar location with no evidence of hematoma/seroma. No ecchymosis is identified. Left axillary incision is clean and intact with intact Steri-Strips. No hematoma or seroma is appreciated. No erythema noted in the overlying skin. Chest/axillae images: 2 1. 2. Resp Effort & Inspection: normal respiratory effort, no audible wheezes, no cough and no retractions GI Inspection: Yes normal to inspection Neuro Other: Mobility Assessment: 1. 3 meter assessment time (seconds) 4 2. Gait observations: Normal balance and gait General: patient oriented x3 Extrem General: No edema Assessment & Plan Assessment & Plan (1) Invasive ductal carcinoma of left breast: Code(s): C50.912 - Malignant neoplasm of unspecified site of left female breast Category: Medical (2) Ductal carcinoma in situ (DCIS) of left breast: Code(s): D05.12 - Intraductal carcinoma in situ of left breast Category: Medical Plan 59-year-old female patient with a newly diagnosed invasive ductal carcinoma of the left breast. Recent pathology upgraded the results to invasive ductal carcinoma along with the DCIS. Margins were negative but close for the DCIS therefore wider excision was performed on 07/27/2024 along with a sentinel node biopsy. She returned today to review the pathology results. Margins were found to be clean and 1 of 2 sentinel nodes was positive on immunostains (N0 (i+)). She will follow up with Dr. Reddy to discuss next steps. I recommended follow- up examination in 1 month, sooner PRN. Coding Level of Care Code Global (95414) Diagnoses Invasive ductal carcinoma of left breast C50.912 Ductal carcinoma in situ (DCIS) of left breast D05.12
[2024-08-05 10:58] VITALS: BP 136/69; PULSE 66; BMI 40.0
--- OUTSIDE RECORDS SUMMARY | 2024-08-05 11:38 | XMS_ITS | Clinical Summary ---
Author Organization [facility] ity Address [address] [place] [address] Care Team Providers Care Fashion Director Party Plan Sales Name Role Phone Unavailable Primary Care Provider [...]
== END 2024-08-05 11:02 | disposition home or self-care (01) ==
LOC: HO.HGS 10:42
PROVIDERS: PCP Nurse Practitioner Primary Care; Visit Provider Surgery
DX: C50.912 Malignant neoplasm of unspecified site of left female breast (principal); D05.12 Intraductal carcinoma in situ of left breast
CPT/HCPCS: 99024

== ENCOUNTER 2024-08-17 14:34 | Outpatient (REF) | payer MEDICAID, SELFPAY ==
--- NOTE | ~2024-08-17 | MM_ITS ---
EXAMINATION: DXA BONE DENSITY AXIAL HISTORY: OSTEOPENIA TECHNIQUE: [employer] Dual energy absorptiometry (DEXA) of the lumbar spine, total left hip, and femoral neck was performed. COMPARISON: Comparison is made with the prior examination dated 12/16/2019. FINDINGS: The bone mineral density of the lumbar spine is 1.189 g/cm2, corresponding to a T-score of 0.1, and a Z-score of 1.3. This is indicative of normal bone mineral density.- This represents a BMD change of 5.4% compared to the prior exam. This is statistically significant. The bone mineral density of the left total hip is 1.007 g/cm2, corresponding to a T-score of 0.0, and a Z-score of 0.9. This is indicative of normal bone mineral density. This represents a BMD change of 1.7% compared to the prior exam. This is not statistically significant. The bone mineral density of the left femoral neck is 0.944 g/cm2, corresponding to a T-score of -0.7, and a Z-score of 0.6. This is indicative of normal bone mineral density. This represents a BMD change of -2.7% compared to the prior exam. FRACTURE RISK: The FRAX index suggests a ten year probability of major osteoporotic fracture of 3.5%, and of hip fracture 0.2%. MM/XR DEXA axial skeleton IMPRESSION: Based on bone mineral density, and according to World Health Organization (WHO) criteria, the diagnosis is consistent with normal bone mineral density. Statistically, 68% of repeat scans fall within 1 SD (+/- 0.010 g/cm2 for AP spine L1-L4) and 1 SD (+/- 0.012 g/cm2 for femur total) FRAX is a trademark of the [employer], a World Health Organization (WHO) Collaborating Center. Electronically signed by: Waldo Knapp MD 08/17/2024 03:24 PM EDT
--- OUTSIDE RECORDS SUMMARY | 2024-08-17 15:06 | XMS_ITS | Clinical Summary ---
Author Organization [facility] ity Address [address] [place] [address] Care Team Providers Care Winery Cellar Hand Name Role Phone Unavailable Primary Care Provider [...] ars (1 of 2 - PCV) 07/09/1983 Zoster Vaccines (1 of 2) 07/09/1983 Cervical Cancer Screening: P ap Smear 1985 Colorectal Cancer Screening: Colonoscopy 01/09/2022 Depression Screening 01/09/2022 HIV Screening 01/09/2022 Hepatitis C Screening 01/09/2022 Social Influencers of Health Screening 01/09/2022 Influenza Vaccine (#1) 2024 RSV Immunization Adult Patie nts (1 [...]
--- OUTSIDE RECORDS SUMMARY | 2024-08-17 15:06 | XMS_ITS | Clinical Summary ---
Author Organization [facility] Address [address] [place] [address] Care Team Providers Care College Or [employer] Department Head Name Role Phone Unavailable Primary Care Provider [...] Cancer Screening (Mammogram) 2014 Influenza Vaccine (#1) 2024 RSV Adult > 60+ Yrs or Pregn ant (1 - 1-dose 75+ series) 07/09/2039 Hepatitis B Vaccines Aged Out No long er eligible based on patient's age to complete this topic RSV Ped < 20 months Aged Out No longe r eligible based on patient's age to complete this topic
== END 2024-08-17 14:35 | disposition home or self-care (01) ==
LOC: HO.MAMMO 14:34
PROVIDERS: PCP Nurse Practitioner Primary Care; Visit Provider Internal Medicine Medical Oncology
DX: Z13.820 Encounter for screening for osteoporosis (principal); M85.80 Other specified disorders of bone density and structure, unspecified site
CPT/HCPCS: 77080

== ENCOUNTER → 2024-08-17 15:00 | Outpatient (BNV) | payer MEDICAID, SELFPAY | PROVIDERS: PCP Nurse Practitioner Primary Care; Visit Provider Radiology Diagnostic Radiology | DX: E28.39 Other primary ovarian failure (principal) | CPT/HCPCS: 77080 ==

== ENCOUNTER → 2024-08-23 11:02 | Outpatient (BNV) | payer MEDICAID, SELFPAY | PROVIDERS: PCP Nurse Practitioner Primary Care; Referring Provider Surgery; Visit Provider Internal Medicine | DX: R00.1 Bradycardia, unspecified (principal) | CPT/HCPCS: 93010 ==

== ENCOUNTER 2024-08-23 11:56 | Observation (INO) | payer MEDICAID, SELFPAY ==
[2024-08-23] VITALS (14 sets, daily range): BP systolic 101–145; BP diastolic 36–71; PULSE 44–61; RESP 16–18; TEMP 36.3–36.5; O2SAT 93–97; BMI 40.8
--- NOTE | ~2024-08-23 | US_ITS ---
EXAMINATION: US TRIPLEX LOWER EXTREMITY, BILATERAL CLINICAL INFORMATION: Bilateral lower extremity swelling, lumpectomy one month ago for breast cancer COMPARISON: None available. TECHNIQUE: Color-flow triplex imaging with spectral analysis and compression Doppler were performed on the bilateral lower extremities. FINDINGS: Respiratory variation, normal compression and augmented flow are noted throughout the bilateral lower extremities. The visualized common femoral vein, superficial femoral vein, profunda femoral vein, popliteal vein and midcalf peroneal and posterior tibial venous segments show no evidence of deep venous thrombosis bilaterally. US/US venous duplex LE BI IMPRESSION: No evidence of deep venous thrombosis involving the bilateral lower extremities. Electronically signed by: Link Hernandez MD 08/23/2024 04:12 PM EDT
--- NOTE | ~2024-08-23 | XR_ITS ---
EXAMINATION: XR CHEST CLINICAL INFORMATION: dizzyness COMPARISON: June 29, 2022. TECHNIQUE: 2 views of the chest were obtained. FINDINGS: No hyperinflation. No consolidation pleural effusion or pneumothorax. Cardiomediastinal silhouette size is mildly prominent. Vascular clips overlapping the left lower hemithorax. Multilevel thoracolumbar spondylosis. Patient's large body habitus/obesity. XR/XR chest 2V IMPRESSION: No acute airspace disease. Probable prior lumpectomy, left breast. Electronically signed by: Tao Anderson MD 08/23/2024 01:21 PM EDT
--- NOTE | 2024-08-23 12:01 | ECG_ITS ---
Test Reason : abnormal ekg Blood Pressure : */* mmHG Vent. Rate : 47 BPM Atrial Rate : 47 BPM P-R Int : 148 ms QRS Dur : 102 ms QT Int : 460 ms P-R-T Axes : 42 -2 17 degrees QTcB Int : 407 ms Sinus bradycardia Otherwise normal ECG When compared with ECG of 23-Aug-2024 11:02, No significant change was found Referred By: Generic ED Physician Electronically Signed By: TOM MEANS
--- NOTE | 2024-08-23 12:25 | ED.GENADULT ---
HPI - General Adult General Chief complaint: Dizziness Stated complaint: abnormal EKG, sent from oncology Time Seen by Provider: 08/23/24 14:47 Source: patient and family Limitations: language barrier (Sol[place] Islander speaking only, [facility] foundation digger used) History of Present Illness ED Provider: Dr. 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 Reddy. Patient complained of dizziness and was found to be bradycardic and was referred to the emergency department for further evaluation. Information came from the patient and the patient's daughter. The patient complained of intermittent dizziness which she describes as a near syncopal like feeling for the past 3 days. The dizziness is not related to her activity level and can come on at rest. She also is complaining of a intermittent, left-sided headache which she describes as a deep pain which will last for sec. she has had multiple episodes a day of this headache and this is a new headache for her. Patient states that she has had lower extremity edema for 4 months and uses a pneumatic compression machine which she states that has not been working and her edema has gotten worse. She states she has had a good appetite and has been eating and drinking well. She has been compliant with her antibiotics and denies any pain in her left breast. Related Data Home Medications ?Medication ?Instructions ?Recorded ?Confirmed albuterol sulfate 90 mcg/actuation 2 puff PO Q6H PRN Shortness Of 01/23/21 08/23/24 aerosol inhaler (ProAir HFA) Breath Or Wheezing amlodipine 10 mg tablet 10 mg PO QAM 01/23/21 08/23/24 bictegravir 50 mg-emtricitabine 1 tab PO DAILY 01/23/21 08/23/24 200 mg-tenofovir alafenam 25 mg tablet (Biktarvy) fluticasone propionate 110 2 puff PO BID 01/23/21 08/23/24 mcg/actuation HFA aerosol inhaler (Flovent HFA) furosemide 20 mg tablet 20 mg PO QAM 01/23/21 08/23/24 quetiapine 50 mg tablet 50 mg PO BEDTIME 01/23/21 08/23/24 doxepin 10 mg capsule 10 mg PO BEDTIME 11/25/23 08/23/24 risperidone 2 mg tablet 2 mg PO BEDTIME 11/25/23 08/23/24 tiotropium bromide 1.25 2 puff inhalation DAILY 11/25/23 08/23/24 mcg/actuation mist for inhalation (Spiriva Respimat) Previous Rx's ?Medication ?Instructions ?Recorded cholecalciferol (vitamin D3) 125 125 mcg PO DAILY #90 tabs 06/27/24 mcg (5,000 unit) tablet (Vitamin D3) oxycodone 5 mg tablet 5 mg PO Q6H PRN pain (scale score 07/27/24 7-10) #15 tabs cephalexin 500 mg capsule 500 mg PO Q8H #30 caps 08/16/24 letrozole 2.5 mg tablet 2.5 mg PO DAILY #90 tabs 08/18/24 Allergies Allergy/AdvReac Type Severity Reaction Status Date / Time No Known Allergies Allergy Verified 08/23/24 12:29 Review of Systems Review of Systems: Yes all other systems are reviewed and are negative [facility] Past Medical History [facility] Narrative: Social history: She does smoke cigarettes. She denies alcohol and drug use. Medical History Invasive ductal carcinoma of left breast Acid reflux RUQ pain HTN (hypertension) Asthma HIV (human immunodeficiency virus infection) Surgical History History of lumpectomy of left breast (07/27/24) Hx of blepharoplasty History of lithotripsy History of breast surgery Family History Family History Father Lung cancer Prostate CA Mother Colon cancer Breast cancer Paternal Aunt Breast cancer Maternal Aunt Breast cancer Maternal Aunt Breast cancer Social History Social History Household Members: None Housing: Apartment Are you a primary medical care evaluation specialist to a significant other at home: No Do you presently have visiting nurse or other home services: No Alcohol intake: never Patient Tobacco Use Status: Current everyday Tobacco user Tobacco use type: Cigarette Smoked in Last 30 Days: Yes Use of substances other than those prescribed or required for medical reasons: No Advance Directives: No Advance Directives Information Provided: Yes Do you have a plan to hurt others: No Plan service: No Current occupational status: disabled Physical Exam ED Vital Signs: Vital Signs - 24 hr 08/23/24 12:21 08/23/24 12:41 08/23/24 12:43 Temperature 97.6 F Pulse Rate 47 L 61 51 Respiratory Rate 16 Blood Pressure 124/57 L 119/56 L 128/50 L Pulse Oximetry 97 95 97 Oxygen Delivery Method Room Air 08/23/24 12:46 08/23/24 12:49 08/23/24 14:45 Temperature Pulse Rate 55 56 45 L Respiratory Rate 16 Blood Pressure 128/59 L 132/66 101/36 L Pulse Oximetry 93 96 Oxygen Delivery Method 08/23/24 15:56 08/23/24 17:30 08/23/24 17:32 Temperature 97.7 F Pulse Rate 46 L 51 45 L Respiratory Rate 17 17 Blood Pressure 141/64 H 120/52 L 102/40 L Pulse Oximetry 96 97 Oxygen Delivery Method Room Air Room Air 08/23/24 17:33 08/23/24 17:33 Temperature Pulse Rate 44 L 53 Respiratory Rate Blood Pressure 128/47 L 143/70 H Pulse Oximetry Oxygen Delivery Method BMI result Body Mass Index 40.8 Vital signs revealed initial blood pressure of 124/57 with most recent blood pressure decreased to 101/36. Patient has been bradycardic with heart rate ranging from 45 to 61 beats per minute. Exam: General: Awake, alert in no distress Head: Normocephalic, atraumatic, no tenderness palpation over the temporal regions of her scalp EENT: PERRL, Lids normal, sclera normal, conjunctiva normal, nose normal , ears normal, throat without erythema or exudates Neck: Supple, no adenopathy Lung: breath sounds symmetric, no wheezing, rales or rhonchi Chest: symmetric movement, left breast in his erythematous with increased warmth with no significant tenderness Heart: Bradycardia with a regular rhythm,, normal S1, S2 no murmurs or rubs Abdomen: soft, non-tender, nondistended, normal bowel sounds Back: no vertebral tenderness, no CVAT Extremities: no deformities, moves all extremities symmetrically trace to 1+ pitting edema bilaterally symmetric Neuro: Awake, alert, oriented, normal speech, cranial nerves intact, moves all extremities symmetrically Psych: Pleasant, cooperative Course Course Course Narrative: 08/23/24 1226 FRANCISCO Lazo This is a Rapid Medical Examination (RME) performed by Flaco Currie PA-C in triage. Full HPI, ROS, assessment and treatment plan per primary provider in the Main ED. Hx: 59 yo F hx of HIV, asthma, HTN, GERD, invasive ductal carcinoma of L breast here w/ daughter from oncologists office for abdnormal EKG showing sinus bradycardic to 40's. sent here for further eval. feels tired and intermittently dizzy. no change w/ position changes. no chest pain, SOB. she is currently on chemotherapy pills. will be starting radiation soon. s/p left breast lumpectomy with biopsy on 07/27/2024 w/ post-op infection currently on abx. PE/vitals: bradycardic to 45. Plan: labs, ekg, cxr, orthos Medications Administered Discontinued Medications Generic Name Dose Route Start Last Admin Trade Name Freq PRN Reason Stop Dose Admin Doxycycline Monohydrate 100 mg 08/23/24 15:15 08/23/24 15:50 Doxycycline Monohydrate 100 Mg Capsule PO 08/23/24 15:16 100 mg ONCE ONE Administration Sodium Chloride 1,000 mls @ 999 mls/hr 08/23/24 15:15 08/23/24 15:48 Ns IV 08/23/24 16:15 999 mls/hr .Q1H1M STA Administration Piperacillin Sod/Tazobactam 100 mls @ 200 mls/hr 08/23/24 15:15 08/23/24 16:20 Sod 4.5 gm/ Sodium Chloride IV 08/23/24 15:44 Infused ONCE ONE Infusion Medical Decision Making Medical Decision Making [facility] Narrative: 59-year-old female with a history of recurrent invasive ductal carcinoma of the left breast (positive biopsy 07/27/2024 and 06/01/2024), GERD, hypertension, asthma, HIV, left breast infection diagnosed 08/16/2024 on Keflex times 10 days who had a routine follow-up today for left breast infection with her oncologist, Dr. Reddy. Patient complained of dizziness and was found to be bradycardic and was referred to the emergency department for further evaluation. The patient complained of intermittent dizziness which she describes as a near syncopal like feeling for the past 3 days. The dizziness is not related to her activity level and can come on at rest. She also is complaining of a intermittent, left-sided headache which she describes as a deep pain which will last for sec. she has had multiple episodes a day of this headache and this is a new headache for her. Patient states that she has had lower extremity edema for 4 months and uses a pneumatic compression machine which she states that has not been working and her edema has gotten worse. She states she has had a good appetite and has been eating and drinking well. She has been compliant with her antibiotics and denies any pain in her left breast. Vital signs revealed bradycardia and low blood pressure. Exam did reveal evidence of cellulitis of the left breast which is not improved with Keflex and trace to 1+ pitting edema bilaterally symmetric to her lower extremities 15:37 Differential diagnosis: ?Includes but is not limited to symptomatic bradycardia, myocardial infarction, myocardial ischemia, left breast cellulitis, peripheral edema, bilateral DVT, giant cell arteritis, anemia, electrolyte abnormalities, volume depletion, dehydration, orthostatic hypotension Course: 15:37 My independent interpretation patient's laboratory evaluation is as follows: CBC was normal. CMP was normal. Troponin was below detectable limits. ESR was normal at 16. CRP was normal at 0.42. Given the patient's new bradycardia with dizziness I am concerned that the patient may have symptomatic bradycardia secondary to pauses. Do not think that the patient has sepsis but she does have a left breast infection therefore I did order blood cultures x2 and lactic acid. Orthostatic vital signs are pending. I did order normal saline IV x1 L, Zosyn 4.5 g IV and doxycycline 100 mg orally. Given her breast cancer and recent lumpectomy, I will also obtain bilateral lower extremity ultrasounds to rule out DVTs. 16:36 Orthostatic vital signs: Lying: BP 102/40, heart rate 45 Sitting: BP 128/47, heart rate 40 4 times Standing: BP 143/70, heart rate 53 Patient was not orthostatic by pulse or blood pressure. 17:34 DVT studies of both lower extremities were negative. At this time I do not have a clear etiology for her near syncopal episodes, concerned that it may be secondary to her bradycardia. The patient is on amlodipine and this could be the cause of her bradycardia. I do not think that the patient has sepsis when she does have left breast cellulitis. I did discuss the patient's presentation with the covering hospitalist over tiger text with and the patient will be admitted for further treatment. Admission/Observation Consideration of admission/observation: Escalation of care including admission/observation considered (Yes) Consult Healthcare Provider Management of the patient was discussed with: Hospitalist Lab Data MDM Lab Attestation statement: I reviewed the patient's lab results. 08/23/24 13:45 08/23/24 13:45 Labs: Lab Results 08/23/24 08/23/24 08/23/24 Range/Units 13:45 15:31 15:47 WBC 9.3 (4.8-10.8) X10*3/uL RBC 4.43 (4.20-5.50) X10*6/uL Hgb 13.0 (12.0-16.0) g/dl Hct 39.5 (37.0-47.0) % MCV 89.2 (80.0-98.0) fL MCH 29.3 (27.0-33.0) pg MCHC 32.9 (31.0-35.0) g/dl RDW 16.2 H (11.0-16.0) % Plt Count 302 (160-400) X10*3/uL MPV 8.3 L (9.4-12.3) fL Immature Gran % (Auto) 0.3 (0.0-0.4) % Neut % (Auto) 63.3 (45-73) % Lymph % (Auto) 23.1 (20-40) % [place] % (Auto) 9.4 (2-11) % Eos % (Auto) 3.3 (0-4) % Baso % (Auto) 0.6 (0-2) % Lymph # (Auto) 2.1 (1.2-4.9) X10*3/uL [place] # (Auto) 0.9 (0.1-1.2) X10*3/uL Eos # (Auto) 0.3 (0.0-0.4) X10*3/uL Baso # (Auto) 0.1 (0.0-0.2) X10*3/uL Abs Immat Gran (auto) 0.03 (0.00-0.03) X10*3/uL Absolute Neuts (auto) 5.9 (2.0-8.3) x10*3/uL Absolute Nucleated RBC 0.000 (0.0-0.012) X10*3/uL Nucleated RBC % (auto) 0.0 (0.0-0.2) /100WBC ESR 16 (0-20) MM/HR PT 11.2 (10.9-12.4) SEC INR 1.0 (0.9-1.1) APTT 29.1 (26.0-36.8) SEC Sodium 141 (135-145) mmol/L Potassium 3.9 (3.3-5.1) mmol/L Chloride 106 (96-108) mmol/L Carbon Dioxide 26 (22-29) mmol/L Anion Gap 13 (12-20) BUN 13 (9-16) mg/dL Creatinine 0.92 (0.5-1.4) mg/dL Estim Creat Clear Calc 56.2 Estimated GFR > 60 Random Glucose 92 (60-115) mg/dL Lactic Acid 0.7 (0.5-2.0) mmol/L Calcium 9.5 (8.4-10.2) mg/dL Magnesium 2.1 (1.6-2.6) mg/dL Total Bilirubin 0.2 (0.0-1.0) mg/dL AST 24 (5-31) U/L ALT 19 (0-31) U/L Alkaline Phosphatase 86 (39-117) U/L Troponin I High Sens < 2.7 (<3.5-17.0) ng/L C-Reactive Protein 0.42 (< or = 0.50) mg/dL Total Protein 7.8 (6.5-8.0) g/dL Albumin 4.7 (3.5-5.0) g/dL Independent Interpretation I performed an independent interpretation of an: EKG and Plain X-Ray Interpretation: My independent interpretation of the patient's two view chest x-ray is as follows: No acute disease My independent interpretation patient's 12 EKG done on 08/23/2024 at 20:04 hours is as follows: Sinus bradycardia with a rate of 47, normal TN interval, QRS duration QTC interval, no ST segment elevation, no ST segment depression, no PACs, no PVCs My independent interpretation of the patient's chest x-ray is as follows : No acute disease Radiology Impression Discussion of test interpretation with radiology: I have reviewed the radiologist's reading. Radiologist Impression: XR chest 2V IMPRESSION: No acute airspace disease. Probable prior lumpectomy, left breast. Electronically signed by: Tao Anderson MD 08/23/2024 01:21 PM Independent Historian Clinical information obtained from an independent historian. History obtained from or confirmed by: Other (Daughter) External Record Review External record reviewed: Outpatient record (Dr. Reddy office notes) Chronic Conditions Patient?s care impacted by: Hypertension Critical Care Time Critical Care Time Critical Care Time: Yes Total Critical Care Time: 35 Attestation: Critical Care: The patient was critically ill with a high probability of imminent or life threatening deterioration. I spent greater than 30 minutes of discontinuous time evaluating the patient,delivering critical care at the bedside, discussing and evaluating pertinent data with consultants. Critical care time does not include time spent performing separately billable procedures or teaching. Total time spent performing critical care was 35 minutes. Discharge Plan Discharge Patient Disposition: Admitted As Inpatient Print Language: [place] Islander
--- NOTE | 2024-08-23 12:51 | PC.NURSE ---
Pt roomed changed and placed on full monitor. Assessment complete with telephone coin box collector. VSS NAD Able to complete orthostatic VS without dizziness. Denies numbness tingling only C/O MCKEON at this time x 4 days for which she has been taking ibuprofen at home. Monitor shows NSR no ectopy.
[2024-08-23 13:48] LABS: MANUAL DIFF FLAG NO
[2024-08-23 13:50] LABS: Hematocrit 39.5 % (37.0-47.0); Hemoglobin 13.0 g/dl (12.0-16.0); Imm Gran Abs Auto 0.03 X10*3/uL (0.00-0.03); Imm Gran Pct Auto 0.3 % (0.0-0.4); Lymphocytes Absolute Auto 2.1 X10*3/uL (1.2-4.9); Mean Corpuscular HGB Conc 32.9 g/dl (31.0-35.0); Mean Corpuscular Hemoglobin 29.3 pg (27.0-33.0); Mean Corpuscular Volume 89.2 fL (80.0-98.0); NRBC Abs Auto 0.000 X10*3/uL (0.0-0.012); NRBC Pct Auto 0.0 /100WBC (0.0-0.2); Platelet Count 302 X10*3/uL (160-400); Red Blood Count 4.43 X10*6/uL (4.20-5.50); White Blood Count 9.3 X10*3/uL (4.8-10.8)
[2024-08-23 14:07] LABS: Alanine Aminotransferase 19 U/L (0-31); Albumin Level 4.7 g/dL (3.5-5.0); Alkaline Phosphatase 86 U/L (39-117); Anion Gap 13 (12-20); Aspartate Amino Transferase 24 U/L (5-31); Blood Urea Nitrogen 13 mg/dL (9-16); Calcium 9.5 mg/dL (8.4-10.2); Carbon Dioxide 26 mmol/L (22-29); Chloride 106 mmol/L (96-108); Creatinine Clr Calc Pharmacy 56.2; Estimated Glomerular Filt Rate > 60; Magnesium 2.1 mg/dL (1.6-2.6); Potassium 3.9 mmol/L (3.3-5.1); Sodium 141 mmol/L (135-145); Total Protein 7.8 g/dL (6.5-8.0)
--- OUTSIDE RECORDS SUMMARY | 2024-08-23 14:13 | XMS_ITS | Clinical Summary ---
Author Organization [facility] Address [address] [place] [address] Care Team Providers Care Geriatric Case Manager Name Role Phone Unavailable Primary Care Provider [...]
--- OUTSIDE RECORDS SUMMARY | 2024-08-23 14:13 | XMS_ITS | Clinical Summary ---
Author Organization [facility] it[facility] Address [address] [place] [address] Care Team Providers Care Body Work Auto Trimmer Name Role Phone Unavailable Primary Care Provider [...]
[2024-08-23 14:19] LABS: Troponin-I High Sensitivity < 2.7 ng/L (<3.5-17.0)
--- NOTE | 2024-08-23 14:46 | PC.NURSE ---
Pt with no complaits at this time but HR lower with hypotension- provider notified and will see pt.
--- NOTE | 2024-08-23 15:31 | MHC.HEMONC ---
I mailed out patient's next appointment.
--- NOTE | 2024-08-23 15:50 | PC.NURSE ---
delay in abx administration d/t lack of IV access. 20gIV placed in the left AC. IVF/abx administered per provider order. ultrasound currently being completed at this time. plan of care ongoing. call miranda placed within reach.
[2024-08-23 16:05] LABS: INTERNATIONAL NORM RATIO 1.0 (0.9-1.1); Prothrombin Time 11.2 SEC (10.9-12.4)
[2024-08-23 16:08] LABS: Partial Thromboplastin Time 29.1 SEC (26.0-36.8)
--- NOTE | 2024-08-23 16:38 | PC.NURSE ---
orthostatic VS complete. pt tolerated well. stand by assist needed as patient was ambulating to the restroom. strong/steady gait noted. pt denied any episodes of dizziness/lightheadedness w/ exertion. plan of care ongoing.
[2024-08-23] MEDS: Lactated Ringers 1,000 ML 100 ML IVCONT (18:46)
--- NOTE | 2024-08-23 19:29 | PHA.MEDREC ---
Addendum entered by Merrick Vicente [facility] 08/23/24 19:41: MED REC CHECKED BY [facility] Original Note: Pharmacy Consult ? Medication Reconciliation Pharmacy has completed the medication reconciliation. Spoke to patient through motor vehicle parts interpreter service (Diego) to confirm med list. Patient states she is no longer taking Calcium carb-vit D3, Vitamin D3 125 mcg, Flonase nasal spray, Omeprazole 20 mg, and Oxycodone 5 mg. Patient confirmed Cephalexin 500 mg and Letrozole 2.5 mg she started 5 days ago. Patient states she had all her morning medications today.
--- NOTE | 2024-08-23 21:08 | PM.IMHP ---
History of Present Illness Date of Service: 08/23/24 Attending physician on admission: Mikal Slaughter Chief Complaint: Dizziness Patient is a 59-year-old Salvadorean-speaking female with a past medical history significant for invasive ductal carcinoma left breast with 2 recent positive biopsies in July and May of 2024 complicated by recent left breast infection diagnosed on 08/16/2024 currently on Keflex, GERD, HTN, moderate persistent asthma, HIV and morbid obesity, who presented to the ED after follow-up with Dr. Reddy today for the left breast infection, she was sent to the ED due to dizziness and bradycardia. The patient reports near syncopal episodes for the past 3 days. She has been eating and drinking normally. She also describes intermittent left-sided headache which she describes as deep and quick pains that last about 2nd. She also has chronic lower extremity edema for the past 4 months and is using compression boots at home daily. She reports left-sided vein surgery recently and monitoring on the right side for now. She had an echocardiogram back in May of this year which did not show any heart failure or valvular abnormalities. The patient reports that she has not had any episodes with full syncope, falls or head strike. Currently she is feeling well. She denies any chest pain, shortness of breath, nausea or vomiting. She also denies any urinary symptoms including frequency, urgency or dysuria. No abdominal pain or diarrhea. Review of Systems Constitutional: Constitutional: Denies fatigue, Denies frequent falls and Reports headache(s) Eyes: Eyes: Denies change in vision ENT: Reports headache(s) and Denies nasal congestion Cardiovascular: Cardiovascular: Denies chest pain, Denies rapid heart rate, Reports leg edema, Denies lightheadedness and Denies dyspnea Respiratory: Respiratory: Denies chest congestion, Denies cough, Denies dyspnea and Denies wheezing Gastrointestinal: Gastrointestinal: Denies abdominal pain, Denies constipation and Denies diarrhea Genitourinary: Genitourinary: Denies difficulty voiding, Denies dysuria and Denies urinary urgency Musculoskeletal: Musculoskeletal: Denies myalgias Integumentary/Breasts: Skin/Breast: Reports rash (cellulitis L breast) Neurologic: Denies confusion, Denies frequent falls and Reports headache(s) Psychiatric: Psychiatric: Denies confusion Endocrine: Endocrine: Denies fatigue Hematologic/Lymphatic: Hematologic/Lymphatic: Denies easy bleeding and Denies easy bruising Allergic/Immunologic: Allergic/Immunologic: Denies wheezing [facility] Medical History Invasive ductal carcinoma of left breast Acid reflux RUQ pain HTN (hypertension) Asthma HIV (human immunodeficiency virus infection) Functional capacity: independent ambulation Family History Father Lung cancer Prostate CA Mother Colon cancer Breast cancer Paternal Aunt Breast cancer Maternal Aunt Breast cancer Maternal Aunt Breast cancer Surgical History History of lumpectomy of left breast (07/27/24) Hx of blepharoplasty History of lithotripsy History of breast surgery Social History Household Members: None Housing: Apartment Are you a primary care management coordinator to a significant other at home: No Do you presently have visiting nurse or other home services: No Alcohol intake: never Patient Tobacco Use Status: Current everyday Tobacco user Tobacco use type: Cigarette Smoked in Last 30 Days: Yes Use of substances other than those prescribed or required for medical reasons: No Advance Directives: No Advance Directives Information Provided: Yes Do you have a plan to hurt others: No Plan service: No Current occupational status: disabled Narrative: Smokes a few cigarettes daily, increases with stress. No alcohol or drug use Meds Allergies Allergy/AdvReac Type Severity Reaction Status Date / Time No Known Allergies Allergy Verified 08/23/24 12:29 Active Medications: Current Medications Acetaminophen (Acetaminophen 325 Mg Tablet) 650 mg PO Q6H PRN PRN Reason: Pain, Mild 1-3,fever,headache Amoxicillin/Clavulanate Potassium (Amoxicillin/Potassium Clav 875 Mg Tablet) 875 mg PO Q12H [facility] Last Admin: 08/23/24 20:33 Dose: 875 mg Calcium Carbonate (Calcium Carbonate 750 Mg Tab.Chew) 750 mg PO Q4H PRN PRN Reason: Heartburn Doxycycline Monohydrate (Doxycycline Monohydrate 100 Mg Capsule) 100 mg PO Q12H [facility] Enoxaparin Sodium (Enoxaparin Sodium 40 Mg/0.4 Ml Syringe) 40 mg SUBCUT Q24H [facility] Last Admin: 08/23/24 20:33 Dose: 40 mg Lactated Ringer's (Lr) 1,000 mls @ 100 mls/hr IVCONT .Q10H [facility] Last Admin: 08/23/24 18:46 Dose: 100 mls/hr Magnesium Hydroxide (Milk Of Magnesia 30 Ml Oral.Susp) 30 ml PO DAILY PRN PRN Reason: Constipation Melatonin (Melatonin 3 Mg Tablet) 6 mg PO BEDTIME PRN PRN Reason: Insomnia Ondansetron HCl (Ondansetron Hcl 4 Mg/2 Ml Vial) 4 mg IVPUSH Q8H PRN PRN Reason: Nausea and Vomiting Polyethylene Glycol (Polyethylene Glycol 3350 17 Gm Powd.Pack) 17 gm PO DAILY PRN PRN Reason: Constipation Sodium Chloride (0.9 % Sodium Chloride Flush 3 Ml Syringe) 3 ml IVFLUSH QSHIFT [facility] Home Medications ?Medication ?Instructions ?Recorded ?Confirmed ?Last Taken ?Type amlodipine 10 mg tablet 10 mg PO DAILY 01/23/21 08/23/24 08/23/24 History furosemide 20 mg tablet 20 mg PO DAILY 01/23/21 08/23/24 08/23/24 History quetiapine 50 mg tablet 50 mg PO BEDTIME 01/23/21 08/23/24 08/22/24 History doxepin 10 mg capsule 10 mg PO BEDTIME 11/25/23 08/23/24 08/22/24 History risperidone 2 mg tablet 2 mg PO BEDTIME 11/25/23 08/23/24 08/22/24 History bictegravir 50 mg-emtricitabine 1 tab PO DAILY 08/23/24 08/23/24 08/23/24 History 200 mg-tenofovir alafenam 25 mg tablet (Biktarvy) fluticasone propionate 50 1 spray intranasal BID 08/23/24 08/23/24 08/23/24 History mcg/actuation nasal spray,suspension multivitamin-ferrous 1 tab PO DAILY 08/23/24 08/23/24 08/23/24 History fumarate-folic acid 18 mg-400 mcg tablet (Certavite-Antioxidant) tiotropium bromide 1.25 2 puff inhalation DAILY 08/23/24 08/23/24 08/23/24 History mcg/actuation mist for inhalation (Spiriva Respimat) Physical Exam Vital Signs and Narrative: Vital Signs: Last Vital Signs Temp 97.4 F 08/23/24 20:27 Pulse 53 08/23/24 20:27 Resp 18 08/23/24 20:27 BP 145/71 H 08/23/24 20:27 Pulse Ox 97 08/23/24 20:27 O2 Del Method Room Air 08/23/24 20:27 BMI result Body Mass Index 40.8 General: AOx3, no acute distress, seen with marketing development manager and patient's daughter. Majority of history given by patient Resp: CTA bilaterally CVS: S1, S2, RRR GI: +BS, NT, no distention Skin: Warm, dry. no erythema or warmth on L breast where pt notes cellulitis was but she does note pain. Neuro: Cranial nerves II-XII grossly intact bilaterally. Motor grossly intact bilaterally Extremities: 1+ pitting edema Psych: Appropriate affect Const: General: No confusion Orientation/consciousness: No confusion Neuro: General: No confusion Results Labs 08/23/24 13:45 08/23/24 13:45 Labs: Laboratory Results - last 24 hr 08/23/24 08/23/24 08/23/24 13:45 15:31 15:47 MCV 89.2 MCH 29.3 MCHC 32.9 RDW 16.2 H Plt Count 302 MPV 8.3 L Immature Gran % (Auto) 0.3 Neut % (Auto) 63.3 Lymph % (Auto) 23.1 [place] % (Auto) 9.4 Eos % (Auto) 3.3 Baso % (Auto) 0.6 Lymph # (Auto) 2.1 [place] # (Auto) 0.9 Eos # (Auto) 0.3 Baso # (Auto) 0.1 Abs Immat Gran (auto) 0.03 Absolute Neuts (auto) 5.9 Absolute Nucleated RBC 0.000 Nucleated RBC % (auto) 0.0 ESR 16 PT 11.2 INR 1.0 APTT 29.1 Anion Gap 13 Estim Creat Clear Calc 56.2 Estimated GFR > 60 Random Glucose 92 Lactic Acid 0.7 Calcium 9.5 Magnesium 2.1 Total Bilirubin 0.2 AST 24 ALT 19 Alkaline Phosphatase 86 C-Reactive Protein 0.42 Total Protein 7.8 Albumin 4.7 Imaging Radiologist's Impressions: Impressions Chest X-Ray 08/23/24 13:10 IMPRESSION: No acute airspace disease. Probable prior lumpectomy, left breast. Electronically signed by: Tao Anderson MD 08/23/2024 01:21 PM EDT RP Venous Duplex 08/23/24 15:47 IMPRESSION: No evidence of deep venous thrombosis involving the bilateral lower extremities. Electronically signed by: Link Hernandez MD 08/23/2024 04:12 PM EDT RP Assessment and Plan (1) Near syncope: Status: Acute (2) Bradycardia: Status: Acute (3) Cellulitis of left breast: Status: Acute (4) Morbid obesity: Status: Acute (5) Tobacco use disorder: Status: Acute Plan Patient is a 59-year-old Salvadorean-speaking female with a past medical history significant for invasive ductal carcinoma left breast with 2 recent positive biopsies in July and May of 2024 complicated by recent left breast infection diagnosed on 08/16/2024 currently on Keflex, GERD, HTN, moderate persistent asthma, HIV and morbid obesity, who presented to the ED after follow-up with Dr. Reddy today for the left breast infection, she was sent to the ED due to dizziness and bradycardia. near syncope, bradycardia - HR 40s-50s, on amlodipine - BPs ok, no orthostatic hypotension - EKG with sinus bradycardia - given 1 L IVF and on LR 100ml/hr - bilateral venous Doppler ultrasounds negative - echo 05/2024 normal - check UA and BNP - monitor on tele L breast cellulitis - lactic acid normal, blood cultures x2 pending - hypotension not reslated to sepsis, no fever, tachycardia, or leukocytosis - augmentin and doxycycline PO morbid obesity - BMI 40.8 - weight loss encouraged tobacco use disorder - smoking cessation encouraged - nicotine gum PRN L breast cancer - followed by Dr Reddy - letrozole GERD - no home meds chronic moderate persistent asthma, no acute exacerbation - continue home inhalers HIV - continue Biktarvy Full code VTE prophylaxis: Lovenox Patient with near syncopal episode with bradycardia requiring admission for observation. Quality Stroke Does the patient have a stroke diagnosis?: No VTE Prior VTE?: No VTE Risk Level:: Medical - moderate - high VTE Device Contraindication: Treatment Not Indicated VTE Drug Contraindication: N/A - Med Ordered
[2024-08-23 21:38] LABS: Appearance Urine Clear; Glucose Urine UA Negative (Negative); PH 8.0 (5.0-9.0); Specific Gravity - Urine 1.010 (1.005-1.025); UMIC TRIGGER UACC YES
[2024-08-24] VITALS (7 sets, daily range): BP systolic 126–153; BP diastolic 59–72; PULSE 46–58; RESP 13–18; TEMP 36.5–37.1; O2SAT 95–98; BMI 40.7
[2024-08-24] MEDS: Lactated Ringers 1,000 ML 100 ML IVCONT (04:50)
[2024-08-24 08:02] LABS: B Type Natriuretic Peptide 115 pg/mL (<100)
[2024-08-24] MEDS: Tiotropium Bromide 2.5 mcg 1 PUFF/2.5 MCG MIST.INHAL INHALE ×2 (08:43→09:10)
--- NOTE | 2024-08-24 08:47 | PM.CNCAR ---
History of Present Illness History of Present Illness Date of Service: 08/24/24 Chief complaint: Near syncope Narrative: This is a cardiology consultation regarding bradycardia. Patient has a history of breast cancer and it seems that she has undergone left breast wide or exertion with sentinel node biopsy in July. She has been currently treated for cellulitis around the surgical site in the left breast. She had mentioned about dizziness for the last few days and that led to EKG showing sinus bradycardia and she was sent to the ER and subsequently admitted. Currently, she states she feels okay but she is just lying down in bed. Otherwise, there is no previous history of any cardiac issues including coronary disease or myocardial infarction or cardiomyopathy. Apart from the dizziness she has no other cardiac complaints. Review of Systems Review of Systems: Yes all other systems are reviewed and are negative Constitutional: Constitutional: Reports as per HPI and Reports no additional constitutional complaints Eyes: Eyes: Reports as per HPI and Denies no additional eye complaints ENT: Denies system reviewed and no additional complaints, except as documented and Reports as per HPI Cardiovascular: Cardiovascular: Reports as per HPI, Reports no additional cardiovascular complaints, Denies acrocyanosis, Denies cool extremities, Denies chest pain, Denies leg edema, Reports lightheadedness, Denies palpitations and Denies dyspnea Respiratory: Respiratory: Reports as per HPI, Denies no additional respiratory complaints and Denies dyspnea Gastrointestinal: Gastrointestinal: Reports as per HPI and Denies no additional gastrointestinal complaints Genitourinary: Genitourinary: Reports as per HPI Musculoskeletal: Musculoskeletal: Reports no additional musculoskeletal complaints and Reports as per HPI Integumentary/Breasts: Skin/Breast: Reports system reviewed and no additional complaints, except as docu Neurologic: Reports system reviewed and no additional complaints, except as documented and Reports as per HPI Psychiatric: Psychiatric: Reports no additional psychiatric complaints and Reports as per HPI Endocrine: Endocrine: Reports no additional endocrine complaints, Reports as per HPI and Denies palpitations Hematologic/Lymphatic: Hematologic/Lymphatic: Reports no additional hematologic/lymphatic complaints and Reports as per HPI Allergic/Immunologic: Allergic/Immunologic: Reports no additional allergic/immunologic complaints and Reports as per HPI [facility] Past Medical History Medical History Invasive ductal carcinoma of left breast Acid reflux RUQ pain HTN (hypertension) Asthma HIV (human immunodeficiency virus infection) Family History Family History Father Lung cancer Prostate CA Mother Colon cancer Breast cancer Paternal Aunt Breast cancer Maternal Aunt Breast cancer Maternal Aunt Breast cancer Surgical History Surgical History History of lumpectomy of left breast (07/27/24) Hx of blepharoplasty History of lithotripsy History of breast surgery Social History Social History Household Members: None Housing: Apartment Are you a primary director of patient care to a significant other at home: No Do you presently have visiting nurse or other home services: Yes (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) Alcohol intake: never Patient Tobacco Use Status: Current everyday Tobacco user Tobacco use type: Cigarette Cigarettes Per Day: 6 service: No Current occupational status: disabled Meds Allergies Allergy/AdvReac Type Severity Reaction Status Date / Time No Known Allergies Allergy Verified 08/23/24 12:29 Active Medications: Current Medications Acetaminophen (Acetaminophen 325 Mg Tablet) 650 mg PO Q6H PRN PRN Reason: Pain, Mild 1-3,fever,headache Last Admin: 08/24/24 02:57 Dose: 650 mg Amoxicillin/Clavulanate Potassium (Amoxicillin/Potassium Clav 875 Mg Tablet) 875 mg PO Q12H [facility] Last Admin: 08/23/24 20:33 Dose: 875 mg Bictegravir/Emtricitabine/Tenofovir (Bictegrav/Emtricit/Tenofov Ala Tablet) 1 tab PO DAILY [facility] Calcium Carbonate (Calcium Carbonate 750 Mg Tab.Chew) 750 mg PO Q4H PRN PRN Reason: Heartburn Doxepin HCl (Doxepin Hcl 10 Mg Capsule) 10 mg PO BEDTIME [facility] Doxycycline Monohydrate (Doxycycline Monohydrate 100 Mg Capsule) 100 mg PO Q12H [facility] Last Admin: 08/24/24 06:23 Dose: 100 mg Enoxaparin Sodium (Enoxaparin Sodium 40 Mg/0.4 Ml Syringe) 40 mg SUBCUT Q24H [facility] Last Admin: 08/23/24 20:33 Dose: 40 mg Fluticasone Propionate (Fluticasone Propionate Nasal 16 Gm [place]) 1 spray NOSTRIL-B BID [facility] Lactated Ringer's (Lr) 1,000 mls @ 100 mls/hr IVCONT .Q10H [facility] Last Admin: 08/24/24 04:50 Dose: 100 mls/hr Letrozole (Letrozole 2.5 Mg Tablet) 2.5 mg PO DAILY [facility] Magnesium Hydroxide (Milk Of Magnesia 30 Ml Oral.Susp) 30 ml PO DAILY PRN PRN Reason: Constipation Melatonin (Melatonin 3 Mg Tablet) 6 mg PO BEDTIME PRN PRN Reason: Insomnia Multivitamins/Vitamin C (Multivitamin Tablet) 1 tab PO DAILY [facility] Nicotine Polacrilex (Nicotine Polacrilex 2 Mg Gum) 2 mg BUCCAL Q2H PRN PRN Reason: Nicotine Cravings Ondansetron HCl (Ondansetron Hcl 4 Mg/2 Ml Vial) 4 mg IVPUSH Q8H PRN PRN Reason: Nausea and Vomiting Polyethylene Glycol (Polyethylene Glycol 3350 17 Gm Powd.Pack) 17 gm PO DAILY PRN PRN Reason: Constipation Quetiapine Fumarate (Quetiapine Fumarate 50 Mg Tablet) 50 mg PO BEDTIME [facility] Risperidone (Risperidone 2 Mg Tablet) 2 mg PO BEDTIME [facility] Sodium Chloride (0.9 % Sodium Chloride Flush 3 Ml Syringe) 3 ml IVFLUSH QSHIFT [facility] Last Admin: 08/24/24 00:02 Dose: Not Given Tiotropium [place] (Tiotropium [place] 2.5 Mcg 1 Puff/2.5 Mcg Mist.Inhal) 1 puff INHALE RDAILY [facility] Last Admin: 08/24/24 08:43 Dose: 1 puff Home Medications ?Medication ?Instructions ?Recorded ?Confirmed ?Last Taken ?Type amlodipine 10 mg tablet 10 mg PO DAILY 01/23/21 08/23/24 08/23/24 History furosemide 20 mg tablet 20 mg PO DAILY 01/23/21 08/23/24 08/23/24 History quetiapine 50 mg tablet 50 mg PO BEDTIME 01/23/21 08/23/24 08/22/24 History doxepin 10 mg capsule 10 mg PO BEDTIME 11/25/23 08/23/24 08/22/24 History risperidone 2 mg tablet 2 mg PO BEDTIME 11/25/23 08/23/24 08/22/24 History bictegravir 50 mg-emtricitabine 1 tab PO DAILY 08/23/24 08/23/24 08/23/24 History 200 mg-tenofovir alafenam 25 mg tablet (Biktarvy) fluticasone propionate 50 1 spray intranasal BID 08/23/24 08/23/24 08/23/24 History mcg/actuation nasal spray,suspension multivitamin-ferrous 1 tab PO DAILY 08/23/24 08/23/24 08/23/24 History fumarate-folic acid 18 mg-400 mcg tablet (Certavite-Antioxidant) tiotropium bromide 1.25 2 puff inhalation DAILY 08/23/24 08/23/24 08/23/24 History mcg/actuation mist for inhalation (Spiriva Respimat) Physical Exam Vital Signs: Vital Signs: Last Vital Signs Temp 98.6 F 08/24/24 07:06 Pulse 52 08/24/24 08:45 Resp 16 08/24/24 08:45 BP 126/59 L 08/24/24 07:06 Pulse Ox 95 08/24/24 07:06 O2 Del Method Room Air 08/24/24 07:06 BMI result Body Mass Index 40.7 Const: General: comfortable and no acute distress Orientation/consciousness: patient oriented x3 HEENT: Other: Unremarkable Head: Yes normal to inspection Neck: Neck: Yes normal visual inspection Chest: Chest palpation & inspection: normal inspection of the chest Resp: Auscultation: clear to auscultation bilaterally Cardio: Palpation: normal PMI Heart sounds: S1 normal heart sound present, S2 normal heart sound present, no gallops, no murmurs and no rubs GI: Palpation (GI): Soft to palpation Back/Spine/Pelvis: Other: unremarkable Skin: General skin exam: no rashes or lesions noted Neuro: General: patient oriented x3 Extrem: General: Yes normal to inspection Psych: Mental Status: mental status grossly normal Objective Labs and Meds 08/23/24 13:45 08/23/24 13:45 Lab results: Laboratory Results - last 24 hr 08/23/24 08/23/24 08/23/24 13:45 15:31 15:47 WBC 9.3 RBC 4.43 Hgb 13.0 Hct 39.5 MCV 89.2 MCH 29.3 MCHC 32.9 RDW 16.2 H Plt Count 302 MPV 8.3 L Immature Gran % (Auto) 0.3 Neut % (Auto) 63.3 Lymph % (Auto) 23.1 [place] % (Auto) 9.4 Eos % (Auto) 3.3 Baso % (Auto) 0.6 Lymph # (Auto) 2.1 [place] # (Auto) 0.9 Eos # (Auto) 0.3 Baso # (Auto) 0.1 Abs Immat Gran (auto) 0.03 Absolute Neuts (auto) 5.9 Absolute Nucleated RBC 0.000 Nucleated RBC % (auto) 0.0 ESR 16 PT 11.2 INR 1.0 APTT 29.1 Sodium 141 Potassium 3.9 Chloride 106 Carbon Dioxide 26 Anion Gap 13 BUN 13 Creatinine 0.92 Estim Creat Clear Calc 56.2 Estimated GFR > 60 Random Glucose 92 Lactic Acid 0.7 Calcium 9.5 Magnesium 2.1 Total Bilirubin 0.2 AST 24 ALT 19 Alkaline Phosphatase 86 Troponin I High Sens < 2.7 C-Reactive Protein 0.42 B-Natriuretic Peptide Total Protein 7.8 Albumin 4.7 Urine Color Urine Appearance Urine pH Ur Specific [place] Urine Protein Urine Glucose (UA) Urine Ketones Urine Blood Urine Nitrite Ur Leukocyte Esterase Urine RBC Urine WBC Ur Squamous Epith Cells Urine Bacteria Hyaline Casts 08/23/24 08/24/24 21:31 07:20 WBC RBC Hgb Hct MCV MCH MCHC RDW Plt Count MPV Immature Gran % (Auto) Neut % (Auto) Lymph % (Auto) [place] % (Auto) Eos % (Auto) Baso % (Auto) Lymph # (Auto) [place] # (Auto) Eos # (Auto) Baso # (Auto) Abs Immat Gran (auto) Absolute Neuts (auto) Absolute Nucleated RBC Nucleated RBC % (auto) ESR PT INR APTT Sodium Potassium Chloride Carbon Dioxide Anion Gap BUN Creatinine Estim Creat Clear Calc Estimated GFR Random Glucose Lactic Acid Calcium Magnesium Total Bilirubin AST ALT Alkaline Phosphatase Troponin I High Sens C-Reactive Protein B-Natriuretic Peptide 115 H Total Protein Albumin Urine Color Yellow Urine Appearance Clear Urine pH 8.0 Ur Specific [place] 1.010 Urine Protein Negative Urine Glucose (UA) Negative Urine Ketones Negative Urine Blood Negative Urine Nitrite Negative Ur Leukocyte Esterase Trace H Urine RBC 0-2 Urine WBC 0-5 Ur Squamous Epith Cells 3-5 Urine Bacteria None Seen Hyaline Casts 0-2 ECG Interpretation: EKG shows sinus bradycardia at 47/Min; no ischemic changes and otherwise unremarkable. Normal MD and corrected QT. of note, even a prior EKG from 2019 had shown sinus bradycardia in the similar range. Imaging Radiologist's impression: Impressions Chest X-Ray 08/23/24 13:10 IMPRESSION: No acute airspace disease. Probable prior lumpectomy, left breast. Electronically signed by: Tao Anderson MD 08/23/2024 01:21 PM EDT RP Venous Duplex 08/23/24 15:47 IMPRESSION: No evidence of deep venous thrombosis involving the bilateral lower extremities. Electronically signed by: Link Hernandez MD 08/23/2024 04:12 PM EDT RP Assessment and Plan (1) Bradycardia: Status: Acute Plan EKG shows sinus bradycardia in the 40s. Telemetry with similar rates. In 2023, EKG showed ventricular rate in the 70s. In 2019, 49/Min. In 2018, 51/Min. Overall, she has got intermittent, chronic sinus bradycardia. Unlikely that that is causing her any dizziness at this time. A prior echocardiogram shows normal LVEF and otherwise unremarkable. We can ambulate her in the floor and assess heart rate response to activity. If indeed there is any clear chronotropic incompetence, then may need further assessment. Otherwise, in this patient with breast cancer and currently with local cellulitis extra would definitely avoid the pacemaker and there is no clear indication for the same either. Discussed with Dr. Patricio. Procedures Date of Service Date of Service: 08/24/24
[2024-08-24] MEDS: 0.9 % Sodium Chloride Flush 3 ML SYRINGE IVFLUSH (09:09)
[2024-08-24] MEDS: Bictegrav/Emtricit/Tenofov Ala TABLET 1 TAB PO (09:10)
--- NOTE | 2024-08-24 09:30 | PC.NURSE ---
patient refused to take her Spiriva inhaler this morning after med was already scanned. We are unable to undo it at this time and pharmacy is also unable to reverse.
--- NOTE | 2024-08-24 10:33 | PM.DS ---
DS: Providers Provider Date of Service: 08/24/24 Date of admission: 08/23/24 17:42 Date of discharge: 08/24/24 Primary care physician: Angela Rincon NP Consults: 08/24/24 08:30 Consult to Cardiology Routine Consulting Provider: [facility] Reason for consultation: bradycardia, syncope DS: Diagnosis Discharge Diagnosis (1) Bradycardia: Status: Inactive DS: Summary Hospital Course Hospital Course: admission hpi Chief Complaint: Dizziness Patient is a 59-year-old Greek-speaking female with a past medical history significant for invasive ductal carcinoma left breast with 2 recent positive biopsies in July and May of 2024 complicated by recent left breast infection diagnosed on 08/16/2024 currently on Keflex, GERD, HTN, moderate persistent asthma, HIV and morbid obesity, who presented to the ED after follow-up with Dr. Reddy today for the left breast infection, she was sent to the ED due to dizziness and bradycardia. The patient reports near syncopal episodes for the past 3 days. She has been eating and drinking normally. She also describes intermittent left-sided headache which she describes as deep and quick pains that last about 2nd. She also has chronic lower extremity edema for the past 4 months and is using compression boots at home daily. She reports left-sided vein surgery recently and monitoring on the right side for now. She had an echocardiogram back in May of this year which did not show any heart failure or valvular abnormalities. The patient reports that she has not had any episodes with full syncope, falls or head strike. Currently she is feeling well. She denies any chest pain, shortness of breath, nausea or vomiting. She also denies any urinary symptoms including frequency, urgency or dysuria. No abdominal pain or diarrhea. Hospital course: Patient was admitted overnight and observed on telenetry, and was noted to have estefany cardia in 40s and 50s but no sinus pause and assymptomatic, records review show that this is chronic dating back 2018 and 2019, and unlikely cause of her reported symptoms, Norvasc is not causing bradycardia. Orthostatic BP was negative, she was hydrated with IVF, she does not have further dizziness and no further testing is planned by cardiology at this time. For cellulitis of left breast it seems nearly all resolved and will finish Keflex previously prescribed and adding Doxycline for a week Time Attestation Discharge Coordination Time (in mins): 45 Quality: Safe Use of Opioids Does Pt have an Active Cancer Diagnosis on the Problem List?: No Quality: Stroke Does the patient have a stroke diagnosis?: No Physical Exam Vital Signs: Vital Signs: Last Vital Signs Temp 98.6 F 08/24/24 07:06 Pulse 52 08/24/24 08:45 Resp 16 08/24/24 08:45 BP 126/59 L 08/24/24 07:06 Pulse Ox 95 08/24/24 07:06 O2 Del Method Room Air 08/24/24 07:06 BMI result Body Mass Index 40.7 General: AO X 3, no acute distress Resp: CTA bilateral CVS: S1,S2,RRR GI: +BS, NT, no distention Skin: No rash Neuro: motor grossly intact Psych: appropriate affect DS: Data Data Completed and Pending Labs on day of discharge: Laboratory Results - last 24 hr 08/23/24 08/23/24 08/23/24 13:45 15:31 15:47 WBC 9.3 RBC 4.43 Hgb 13.0 Hct 39.5 MCV 89.2 MCH 29.3 MCHC 32.9 RDW 16.2 H Plt Count 302 MPV 8.3 L Immature Gran % (Auto) 0.3 Neut % (Auto) 63.3 Lymph % (Auto) 23.1 [place] % (Auto) 9.4 Eos % (Auto) 3.3 Baso % (Auto) 0.6 Lymph # (Auto) 2.1 [place] # (Auto) 0.9 Eos # (Auto) 0.3 Baso # (Auto) 0.1 Abs Immat Gran (auto) 0.03 Absolute Neuts (auto) 5.9 Absolute Nucleated RBC 0.000 Nucleated RBC % (auto) 0.0 ESR 16 PT 11.2 INR 1.0 APTT 29.1 Sodium 141 Potassium 3.9 Chloride 106 Carbon Dioxide 26 Anion Gap 13 BUN 13 Creatinine 0.92 Estim Creat Clear Calc 56.2 Estimated GFR > 60 Random Glucose 92 Lactic Acid 0.7 Calcium 9.5 Magnesium 2.1 Total Bilirubin 0.2 AST 24 ALT 19 Alkaline Phosphatase 86 Troponin I High Sens < 2.7 C-Reactive Protein 0.42 B-Natriuretic Peptide Total Protein 7.8 Albumin 4.7 Urine Color Urine Appearance Urine pH Ur Specific Badger Urine Protein Urine Glucose (UA) Urine Ketones Urine Blood Urine Nitrite Ur Leukocyte Esterase Urine RBC Urine WBC Ur Squamous Epith Cells Urine Bacteria Hyaline Casts 08/23/24 08/24/24 21:31 07:20 WBC RBC Hgb Hct MCV MCH MCHC RDW Plt Count MPV Immature Gran % (Auto) Neut % (Auto) Lymph % (Auto) [place] % (Auto) Eos % (Auto) Baso % (Auto) Lymph # (Auto) [place] # (Auto) Eos # (Auto) Baso # (Auto) Abs Immat Gran (auto) Absolute Neuts (auto) Absolute Nucleated RBC Nucleated RBC % (auto) ESR PT INR APTT Sodium Potassium Chloride Carbon Dioxide Anion Gap BUN Creatinine Estim Creat Clear Calc Estimated GFR Random Glucose Lactic Acid Calcium Magnesium Total Bilirubin AST ALT Alkaline Phosphatase Troponin I High Sens C-Reactive Protein B-Natriuretic Peptide 115 H Total Protein Albumin Urine Color Yellow Urine Appearance Clear Urine pH 8.0 Ur Specific Badger 1.010 Urine Protein Negative Urine Glucose (UA) Negative Urine Ketones Negative Urine Blood Negative Urine Nitrite Negative Ur Leukocyte Esterase Trace H Urine RBC 0-2 Urine WBC 0-5 Ur Squamous Epith Cells 3-5 Urine Bacteria None Seen Hyaline Casts 0-2 Discharge Plan Discharge Patient Disposition: Home, Self-Care Discharge Diagnosis: Bradycardia, Left breast cellulitis Referrals: Angela Rincon, ENDOSCOPIC TECHNICIAN [Primary Care Provider, Internal Medicine] - 1 Week Discharge Medications: New doxycycline monohydrate 100 mg Capsule 100 mg PO Q12H Qty: 14 0RF Continued cephalexin 500 mg Capsule 500 mg PO Q8H Qty: 30 1RF letrozole 2.5 mg Tablet 2.5 mg PO DAILY Qty: 90 3RF fluticasone propionate 50 mcg/actuation spray,suspension 1 spray intranasal BID Certavite-Antioxidant 18-400 mg-mcg tablet 1 tab PO DAILY Spiriva Respimat 1.25 mcg/actuation mist 2 puff INHALATION DAILY Biktarvy 50-200-25 mg tablet 1 tab PO DAILY quetiapine 50 mg tablet 50 mg PO BEDTIME furosemide 20 mg tablet 20 mg PO DAILY amlodipine 10 mg tablet 10 mg PO DAILY doxepin 10 mg capsule 10 mg PO BEDTIME risperidone 2 mg tablet 2 mg PO BEDTIME Discharge Orders: Discharge Order (Routine); Ordered 08/24/24 Ordered By: Johnson Dumont Diet: Advance to usual diet Activity on Discharge: As tolerated Stand Alone Forms: Patient Portal Discharge page Print Language: Greek Care Plan Goals: recovery from dizziness, bradycarida, and left Health Concerns: dizziness, cellulitis of left breast, Plan of Treatment: take Keflex as previously prescribed and also take doxycyline for cellulitis follow up with your doctor in a week low heart rate is chronic and doesn't need any more tessting at this time Assessment: see above Discharge Date/Time: 08/24/24 14:26
--- NOTE | 2024-08-24 10:56 | MHC.CM.PN ---
Kinza 08/24/24, Pt lives alone, she has [employer] services for 1 hr a day. PCP confirmed: Angela Rincon, HCP discussed, pt. will complete form today and it will be added to chart. Pt. is SSO, family in room assisted with translation. For DME, pt. has a machine that she uses one hr. a day that helps with circulation in her legs. Family to transport home at DC, DCP; home, self care. CM to follow for DC needs.
== END 2024-08-24 14:26 | disposition home or self-care (01) ==
LOC: HO.ED 17:40 → HO.EDOVER 18:08 → HO.IMC 23:57
PROVIDERS: Physician Assistant; Physician Assistant Medical; Admitting Provider Internal Medicine; Emergency Provider Emergency Medicine Emergency Medical Services; PCP Nurse Practitioner Primary Care; Visit Provider Internal Medicine
DX: R00.1 Bradycardia, unspecified (principal); R55 Syncope and collapse; N61.0 Mastitis without abscess; M79.89 Other specified soft tissue disorders; I10 Essential (primary) hypertension; F17.200 Nicotine dependence, unspecified, uncomplicated; B20 Human immunodeficiency virus [HIV] disease; K21.9 Gastro-esophageal reflux disease without esophagitis; J45.909 Unspecified asthma, uncomplicated; E66.01 Morbid (severe) obesity due to excess calories; Z68.41 Body mass index [BMI] 40.0-44.9, adult; Z79.899 Other long term (current) drug therapy
CPT/HCPCS: 36415; 71046; 80053; 81001; 83605; 83735; 83880; 84484; 85025; 85610; 85652; 85730; 86140; 87040; 93005; 93970; 94640; 96365; 99222; 99285; J1650; J2543; J7120

== ENCOUNTER → 2024-08-23 12:25 | Outpatient (BNV) | payer MEDICAID, SELFPAY | PROVIDERS: PCP Nurse Practitioner Primary Care; Visit Provider Radiology Diagnostic Radiology | DX: R22.43 Localized swelling, mass and lump, lower limb, bilateral (principal); R42 Dizziness and giddiness | CPT/HCPCS: 71046; 93970 ==

== ENCOUNTER → 2024-08-23 17:42 | Outpatient (BNV) | payer MEDICAID, SELFPAY | PROVIDERS: Admitting Provider Internal Medicine; Emergency Provider Emergency Medicine Emergency Medical Services; PCP Nurse Practitioner Primary Care; Visit Provider Physician Assistant | DX: R00.1 Bradycardia, unspecified (principal) | CPT/HCPCS: 99222; 99239 ==

== ENCOUNTER → 2024-08-23 17:42 | Outpatient (BNV) | payer MEDICAID, SELFPAY | PROVIDERS: Admitting Provider Internal Medicine; Emergency Provider Emergency Medicine Emergency Medical Services; PCP Nurse Practitioner Primary Care; Visit Provider Internal Medicine | DX: R00.1 Bradycardia, unspecified (principal) | CPT/HCPCS: 99223 ==

== ENCOUNTER 2024-09-06 10:01 | Outpatient (REF) | payer MEDICAID, SELFPAY ==
--- OUTSIDE RECORDS SUMMARY | 2024-09-06 10:46 | XMS_ITS | Clinical Summary ---
Author Organization [facility] Address [address] [place] [address] Phone Care Team Providers Care Cement Truck Driver Name Role Phone Angela Rincon NP Primary Care Provider [phone] Allergies No known active allergies Medications amLODIPine (NORVASC) 10 MG tablet Take 1 tablet by mouth every morning. 11/16/2023 Active BIKTARVY 50-200-25 mg per tablet Take 1 tablet by mouth every morning. 01/11/2024 Active doxepin (SINEQUAN) 10 MG capsule Take 10 mg by mouth nightly at bedtime. 11/16/2023 Active ibuprofen (ADVIL,MOTRIN) 600 MG tablet TAKE 1 TABLET BY MOUTH EVERY 8 HOURS NEEDED FOR MILD PAIN 10/28/2023 Active melatonin 5 mg Tab TAKE 2 TABLETS BY MOUTH EVERY DAY AT BEDTIME NEEDED 01/14/2024 Active omeprazole (PRILOSEC) 20 MG capsule Take 1 capsule by mouth 2 (two) times a day. 11/16/2023 Active SPIRIVA RESPIMAT 1.25 mcg/actuation Mist inhale 2 puffs by mouth every day 01/14/2024 Active traMADoL (ULTRAM) 50 mg tablet take 1 tablet by mouth every 8 hours as needed for severe pain 11/11/2023 Active furosemide (LASIX) 20 MG tablet Take 1 tablet by mouth every morning. 04/01/2024 Active Active Problems Problem Noted Date Diagnosed Date Swelling, limb 02/01/2024 Assessment & Plan (02/01/2024 11:55 AM EST): Given the anatomy on her ultrasound we can expect her limb to get smaller and drain much better with relief of her symptoms after a vein ablation Left leg pain 02/01/2024 Assessment & Plan (06/15/2024 11:10 AM EDT): Again pain in her leg is not her leg it is more on the ankle Edema 02/01/2024 Assessment & Plan (06/15/2024 11:10 AM EDT): She has minor swelling around the joint Assessment & Plan (02/01/2024 11:55 AM EST): She has at least 1+ pitting edema with bulging varicose veins on the left side Varicose veins of bilateral lower extremities with other complications 02/01/2024 Assessment & Plan (06/15/2024 11:09 AM EDT): At this time her veins are treated well I will see her on a as needed basis the ankle pain is not due to venous insufficiency or complication it is due to arthritis Assessment & Plan (02/01/2024 11:54 AM EST): At this point we are going to ablate chemically with the VenaSeal system of the left great saphenous vein I will see her after her postintervention ultrasound I did explain the risk benefits and alternatives to her regarding this she is a CEAP class IV patient her VCSS score is 9 and she has already tried conservative management for greater than 6 months as above. Her symptoms do interfere with her ability to perform activities of daily living. Encounters Date Type Department Care Team Description 06/15/2024 10:45 AM EDT Office Visit [facility] [address] [place] [address] [address] Floor, [address] [place] [address] Christian Rodriguez, Left leg pain (Primary Dx); Varicose veins of bilateral lower extremities with other complications; Localized edema from Last 3 Months Social History Tobacco Use Types Packs/Day Years Used Date Smoking Tobacco: Never Smokeless Tobacco: Never Tobacco Cessation:Counseling Given: Not Answered Education Answer Date Recorded Are you interested in more education? Not on adelita e 11/17/2023 Are you concerned about learning? Not on file 11/17/2023 No 11/17/2023 No 11/17/2023 Digital Access Answer Date Recorded No 11/17/2023 No 11/17/2023 Reliable internet access at home? Not on file 11/17/2023 Device with a working camera? Not on file Comments Unknown Sex and Gender Information Value Date Recorded Sex Assigned at Not on file Legal Sex Female 10:33 PM EDT Gender Identity Not on file Sexual Orientation Not on file Last Filed Vital Signs Vital Sign Reading Time Taken Comments Blood Pressure 140/82 06/15/2024 10:54 AM EDT Pulse 67 06/15/2024 10:54 AM EDT Temperature - - Respiratory Rate - - Oxygen Saturation 97% 06/15/2024 10:54 AM EDT Inhaled Oxygen Concentration - - Weight 81.2 kg (179 lb) 06/15/2024 10:54 AM EDT Height 142.2 cm (4' 8 ) 06/15/2024 10:54 AM EDT Body Mass Index 40.13 06/15/2024 10:54 AM EDT Plan of Treatment Upcoming Encounters Date Type Department Care Team (Late st Contact Info) Description 09/23/2024 9:00 AM EDT Office Visit [facility] Rad Onc [address] [place] [address] Fannie Rowland MD [address] [place] [address] [email or web address] Health Maintenance Due Date Last Done Comments LIPID PANEL 1964 DEPRESSION SCREENING 1976 HEPATITIS C SCREENING 1982 HIV ONE-TIME SCREENING (18-65 YEARS) 1982 PAP SMEAR 1985 SCREENING FOR DIABETES 07/09/1999 MAMMOGRAM 2004 COLOGUARD 2009 COLONOSCOPY 2009 COLORECTAL CANCER SCREENING 2009 FIT TEST 2009 FOBT 2009 SIGMOIDOSCOPY 2009 VIRTUAL COLONOSCOPY 2009 COVID-19 VACCINE ( season) 2023 08/14/2020, 07/16/2020 Adult Td,Tdap Booster 11/17/2023 11/16/2013 , 11/05/2011, 04/06/2003 RSV VACCINE (1 - Risk 60-74 years 1-dose series) 2024 HEPATITIS A VACCINES Aged Out 09/27/2010, 04/06/19 04 No longer eligible based on patient's age to complete this topic MENINGOCOCCAL VACCINES (ACWY) Aged Out 02/19/2017, 11/20/2016 No longer eligibl e based on patient's age to complete this topic PNEUMOCOCCAL VACCINES (50+ years) Completed 08/13/2017, 11/20/2016, 11/05/2011, Additional history exists ZOSTER VACCINES Completed 08/30/2019, 04/08/2019 SMOKING STATUS SCREENING (Once After 26 Yrs) Completed 06/15/2024 HIB VACCINES Aged Out No longer eligi ble based on patient's age to complete this topic MENINGOCOCCAL VACCINES (B) Aged Out N o longer eligible based on patient's age to complete this topic Medical Devices Not on file Insurance [facility] C3 ACO Care Teams Cement Truck Driver Relationship Specialty Start Date End Date Angela Rincon NP [address] [place] [phone] PCP - General Nurse Practitioner 11/17/23 Additional Source Comments The information contained in this document represents components of the legal health record. It is not the complete legal health record.[facility]
--- OUTSIDE RECORDS SUMMARY | 2024-09-06 10:46 | XMS_ITS | Clinical Summary ---
Author Organization [facility] ity Address [address] [place] [address] Care Team Providers Care Fire Supervisor Name Role Phone Unavailable Primary Care Provider [...] Smear 1985 Colorectal Cancer Screening: Colonoscopy 01/09/2022 HIV Screening 01/09/2022 Hepatitis C Screening 01/09/2022 Social Influencers of Health Screening 01/09/2022 Depression Screening 02/10/2024 Influenza Vaccine (#1) 2024 RSV Immunization Adult [...]
--- OUTSIDE RECORDS SUMMARY | 2024-09-06 10:46 | XMS_ITS | Clinical Summary ---
Author Organization [facility] Address [address] [place] [address] Care Team Providers Care Privacy Compliance Manager Name Role Phone Unavailable Primary Care [...]
[2024-09-06 11:24] LABS: MANUAL DIFF FLAG NO
[2024-09-06 11:29] LABS: Hematocrit 38.3 % (37.0-47.0); Hemoglobin 12.2 g/dl (12.0-16.0); Imm Gran Abs Auto 0.02 X10*3/uL (0.00-0.03); Imm Gran Pct Auto 0.3 % (0.0-0.4); Lymphocytes Absolute Auto 1.7 X10*3/uL (1.2-4.9); Mean Corpuscular HGB Conc 31.9 g/dl (31.0-35.0); Mean Corpuscular Hemoglobin 29.0 pg (27.0-33.0); Mean Corpuscular Volume 91.0 fL (80.0-98.0); NRBC Abs Auto 0.000 X10*3/uL (0.0-0.012); NRBC Pct Auto 0.0 /100WBC (0.0-0.2); Platelet Count 381 X10*3/uL (160-400); Red Blood Count 4.21 X10*6/uL (4.20-5.50); White Blood Count 6.5 X10*3/uL (4.8-10.8)
[2024-09-06 11:40] LABS: Hemoglobin A1C 119.9000 umol/L; Total Hemoglobin (HGBA1C) 3234.6274 umol/L
[2024-09-06 11:50] LABS: Alanine Aminotransferase 21 U/L (0-31); Albumin Level 4.5 g/dL (3.5-5.0); Alkaline Phosphatase 77 U/L (39-117); Anion Gap 11 (12-20); Aspartate Amino Transferase 24 U/L (5-31); Blood Urea Nitrogen 10 mg/dL (9-16); Calcium 9.2 mg/dL (8.4-10.2); Carbon Dioxide 29 mmol/L (22-29); Chloride 106 mmol/L (96-108); Estimated Glomerular Filt Rate > 60; Potassium 3.8 mmol/L (3.3-5.1); Sodium 142 mmol/L (135-145); Total Protein 7.6 g/dL (6.5-8.0)
[2024-09-06 11:52] LABS: Alanine Aminotransferase 19 U/L (0-31); Albumin Level 4.4 g/dL (3.5-5.0); Alkaline Phosphatase 77 U/L (39-117); Aspartate Amino Transferase 23 U/L (5-31); Cholesterol 175 mg/dL (<200); HDL Cholesterol 46 mg/dL (>40); Total Protein 7.4 g/dL (6.5-8.0); Triglycerides 74 mg/dL (<150)
[2024-09-06 12:01] LABS: Syphilis Screen Nonreactive (Nonreactive)
[2024-09-06 12:07] LABS: ~HepC Num1 10.75 S/CO (0.00-0.79); ~Hepatitis C Antibody Reactive (Nonreactive)
[2024-09-06 12:14] LABS: Reflex LDLD? No
[2024-09-07 15:49] LABS: HIV RNA PCR Qn Copies <20 DETECTED copies/mL (NOT DETECTED); HIV RNA PCR Qn Log Copies <1.30 DETECTED (NOT DETECTED)
[2024-09-08 23:34] LABS: TS Negative Control Passed; TS Panel A 0; TS Panel B 0; TS Positive Control Passed; TSpotTB Negative (Negative)
[2024-09-09 01:03] LABS: HCV Log PCR <1.18 NOT DETECTED Log IU/mL (NOT DETECTED); HepC Viral Load <15 NOT DETECTED IU/mL (NOT DETECTED)
[2024-09-11 14:38] LABS: Absolute CD3 Count 1220 cells/uL (840-3060); Absolute CD8 Count 409 cells/uL (180-1170); Percent CD3 Cells 71 % (57-85); Percent CD8 Cells 24 % (12-42)
== END 2024-09-06 10:02 | disposition home or self-care (01) ==
LOC: HO.HHCL 10:01
PROVIDERS: Internal Medicine; PCP Nurse Practitioner Primary Care; Visit Provider Internal Medicine
DX: Z21 Asymptomatic human immunodeficiency virus [HIV] infection status (principal); R73.09 Other abnormal glucose; R60.0 Localized edema; Z11.1 Encounter for screening for respiratory tuberculosis; Z11.3 Encounter for screening for infections with a predominantly sexual mode of transmission; Z11.59 Encounter for screening for other viral diseases
CPT/HCPCS: 36415; 80053; 80061; 80076; 82248; 83036; 85025; 86359; 86360; 86481; 86780; 86803; 87522; 87536

== ENCOUNTER 2024-09-12 09:06 | Outpatient (AMB) | payer MEDICAID, SELFPAY ==
--- NOTE | 2024-09-12 09:20 | A.OFFVIS_ITS ---
Vital Signs 3 09/12/24 09:22 Height 4 ft 8 in Weight 179 lb BMI 40.1 BP 141/68 H Blood Pressure Location Lt brachial Position Sitting Pulse 72 Intake Visit Reasons: 1mthS/P Lt. brst wider excision, Lt axillary SN bx Intake Note: Patient is seen in office for one month follow up visit, post left breast lumpectomy (wider excision). Pt c/o: denies any concern regarding the breast is schedule this Thursday to have a salpingo-oophorectomy Custom Shop Worker Required: Yes Custom Shop Worker Language: Township Supervisor Services: Custom Shop Worker Present Custom Shop Worker Name: Meka MCCAULEY Information Interpreted: non-clinical & clinical Stove Carriage Operator: Stove Carriage Operator Present Accompanied by: Self / Same As Patient Allergies No Known Allergies Allergy (Verified 09/12/24 09:22) HPI Comments Details: 59-year-old female patient returning 1 month following left breast lumpectomy on 06/01/2024 followed by a wider excision and sentinel node biopsy on 07/27/2024. 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 She previously underwent a right breast lumpectomy in 2008 for invasive ductal carcinoma while in [place]. She underwent chemotherapy and radiation therapy at that time. Her family history is significant for her mother having breast cancer as well as a maternal aunt and 2 paternal aunts with breast cancer. She was evaluated by Dr. Reddy. Subsequent genetic testing revealed BRCA2 positive. She feels well and denies any ongoing breast symptoms. She is awaiting hysterectomy on Thursday this week. She is interested in undergoing bilateral mastectomy with immediate reconstruction. [facility] Medical History BRCA gene positive Bradycardia Invasive ductal carcinoma of left breast Acid reflux RUQ pain HTN (hypertension) Asthma HIV (human immunodeficiency virus infection) Surgical History History of lumpectomy of left breast (07/27/24) Hx of blepharoplasty History of lithotripsy History of breast surgery Family History Father Lung cancer Prostate CA Mother Colon cancer Breast cancer Paternal Aunt Breast cancer Maternal Aunt Breast cancer Maternal Aunt Breast cancer Social History Household Members: None Housing: Apartment Are you a primary intensive care medicine specialist to a significant other at home: No Do you presently have visiting nurse or other home services: Yes (STEREOPTIC PROJECTION TOPOGRAPHER) Alcohol intake: never Patient Tobacco Use Status: Current everyday Tobacco user Tobacco use type: Cigarette Cigarettes Per Day: 6 service: No Current occupational status: disabled Female Reproductive History Menstrual Age of Menarche: 13 Review of Systems Const All systems reviewed & are unremarkable except as noted in HPI and below Physical Exam Vital Signs: Last Vital Signs Pulse 72 09/12/24 09:22 BP 141/68 H 09/12/24 09:22 BMI result Body Mass Index 40.1 Const General: comfortable Nutritional Appearance: well nourished Orientation/consciousness: patient oriented x3 Chest Other: Right breast: Well-healed incision in the upper outer quadrant without palpable mass, skin change, nipple discharge or enlarged lymph nodes Left breast: Well-healed incision in the upper periareolar location with no evidence of hematoma/seroma/mass. Left axillary incision is clean and intact with intact Steri-Strips. No hematoma or seroma is appreciated. No erythema noted in the overlying skin. Chest/axillae images: 2 1. 2. 3. Resp Effort & Inspection: normal respiratory effort, no audible wheezes, no cough and no retractions GI Inspection: Yes normal to inspection Neuro Other: Mobility Assessment: 1. 3 meter assessment time (seconds) 4 2. 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 Patient has a strong family history of breast cancer including her mother and both maternal and paternal aunts. Subsequent genetic testing performed by Dr. Reddy was positive for BRCA 2. She is now awaiting hysterectomy on Thursday09/16/2024. She has requested bilateral mastectomies with immediate reconstruction and therefore will be referred to [facility] for further management. Patient expressed understanding and agrees with the plan. She will follow up in approximately 3 months, sooner PRN. Orders: Referrals 2 Breast Surgery Referral C50.911 - Malignant neoplasm of unspecified site of right female breast, C50.912 - Malignant neoplasm of unspecified site of left female breast, Z15.01 - Genetic susceptibility to malignant neoplasm of breast, Z15.09 - Genetic susceptibility to other malignant neoplasm Coding Level of Care Code Global (87230) Diagnoses Invasive ductal carcinoma of left breast C50.912
[2024-09-12 09:22] VITALS: BP 141/68; PULSE 72; BMI 40.1
--- OUTSIDE RECORDS SUMMARY | 2024-09-12 09:32 | XMS_ITS | Clinical Summary ---
Author Organization [facility] ity Address [address] [place] [address] Care Team Providers Care C Developer Name Role Phone Unavailable Primary Care Provider [...]
--- OUTSIDE RECORDS SUMMARY | 2024-09-12 09:32 | XMS_ITS | Clinical Summary ---
Author Organization [facility] Address [address] [place] [address] Care Team Providers Care Homemaking Rehabilitation Consultant Name Role Phone Unavailable Primary Care Provider [...]
--- OUTSIDE RECORDS SUMMARY | 2024-09-12 09:32 | XMS_ITS | Clinical Summary ---
Author Organization [facility] Address [address] [facility] [address] [place] [address] Phone Care Team Providers Care Replanting Machine Crew Name Role Phone Angela Rincon YOEL Primary Care Provider [phone] Allergies No known active allergies Medications amLODIPine [...] Description 06/15/2024 10:45 AM EDT Office Visit [facility] [address] [place] [address] [address] Floor, [address] [place] [address] Christian Rodriguez, Left leg pain (Primary Dx); [...] Description 09/23/2024 9:00 AM EDT Office Visit [facility] Rad Onc [address] [place] [address] Fannie Rowland MD [address] [place] [address] [email or web address] Health Maintenance Due Date Last Done Comments [...] topic Medical Devices Not on file Insurance [facility] C3 ACO Care Teams Replanting Machine Crew Relationship Specialty Start Date End Date Angela Rincon ANP [address] [place] [id number] PCP - General Nurse Practitioner 11/17/23 Additional Source Comments The information contained in this document represents components of the legal health record. It is not the complete legal health record.[facility]
== END 2024-09-12 09:38 | disposition home or self-care (01) ==
LOC: HO.HGS 09:06
PROVIDERS: PCP Nurse Practitioner Primary Care; Visit Provider Surgery
DX: C50.912 Malignant neoplasm of unspecified site of left female breast (principal)
CPT/HCPCS: 99024

== ENCOUNTER → 2024-09-12 09:06 | Outpatient (BNVA) | payer MEDICAID, SELFPAY | PROVIDERS: PCP Nurse Practitioner Primary Care; Visit Provider Surgery | DX: Z71.2 Person consulting for explanation of examination or test findings (principal); C50.912 Malignant neoplasm of unspecified site of left female breast | CPT/HCPCS: 99212 ==

== ENCOUNTER 2024-12-22 10:23 | Outpatient (AMB) | payer MEDICAID, SELFPAY ==
--- NOTE | 2024-12-22 10:26 | MHC.OFFVIS ---
Vital Signs 12/22/24 10:34 Height 4 ft 8 in Weight 180 lb BMI 40.4 BP 125/60 Blood Pressure Location Rt brachial Position Sitting Pulse 72 Intake Visit Reasons: 3 month follow up visit Intake Note: Patient here today for three month follow up visit, post left breast lumpectomy on 07-27-2024. Patient c/o: on and off sharp pain on lt br at exc site. Crankshaft Balancer Required: Yes Information Interpreted: clinical only (Meka MCCAULEY) Accompanied by: Self / Same As Patient Allergies No Known Allergies Allergy (Verified 12/22/24 10:35) HPI HPI 3 month follow up visit: Details: 59-year-old female patient returning for 3 month follow up. She underwent left breast lumpectomy on 06/01/2024 followed by a wider excision and sentinel node biopsy on 07/27/2024. 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 She previously underwent a right breast lumpectomy in 2008 for invasive ductal carcinoma while in [place]. She underwent chemotherapy and radiation therapy at that time. Her family history is significant for her mother having breast cancer as well as a maternal aunt and 2 paternal aunts with breast cancer. She was evaluated by Dr. Reddy. Subsequent genetic testing revealed BRCA2 positive. She was started on letrozole therapy. She has since undergone prophylactic CYNTHIA-BSO on 10/07/[address] Tonia Green at [facility] which she reports was uneventful. She was also referred to [facility] for prophylactic mastectomy with reconstruction however she is currently not a candidate due to her BMI and smoking status. She feels well and denies any ongoing breast symptoms. She reports she has been trying to lose weight but has only lost a pound. She continues to smoke but is down to a few cigarettes a day. She has a mammogram scheduled for 02/14/25. Her next follow up with oncology is also in February. [facility] Medical History BRCA gene positive Bradycardia Invasive ductal carcinoma of left breast Acid reflux RUQ pain HTN (hypertension) Asthma HIV (human immunodeficiency virus infection) Surgical History (Updated 12/22/24 @ 12:31 by Martha Walker PA-C) S/P CYNTHIA-BSO History of lumpectomy of left breast (07/27/24) Hx of blepharoplasty History of lithotripsy History of breast surgery Family History Father Lung cancer Prostate CA Mother Colon cancer Breast cancer Paternal Aunt Breast cancer Maternal Aunt Breast cancer Maternal Aunt Breast cancer Social History Household Members: None Housing: Apartment Are you a primary health care specialist to a significant other at home: No Do you presently have visiting nurse or other home services: Yes ([employer]) Alcohol intake: never Patient Tobacco Use Status: Current everyday Tobacco user Tobacco use type: Cigarette Cigarettes Per Day: 6 service: No Current occupational status: disabled Female Reproductive History Menstrual Age of Menarche: 13 Review of Systems Const Denies chills and Denies fever(s) ENT Denies dizziness Card Denies chest pain and Denies dyspnea Resp Denies dyspnea GI Denies abdominal pain Denies nipple discharge Skin/Breast Denies breast pain, Denies breast mass, Denies nipple discharge and Denies rash Neuro Denies dizziness Physical Exam Vital Signs: Last Vital Signs Pulse 72 12/22/24 10:34 BP 125/60 12/22/24 10:34 BMI result Body Mass Index 40.4 Const General: comfortable, no acute distress and alert Orientation/consciousness: patient oriented x3 Chest Other: Left breast- well healed incision at the upper areolar complex from 11-12 o clock with slight nipple distortion, very mild induration at the site but no palpable mass, no enlarged lymph nodes, well healed axillary incision Right breast- well healed incision in the upper outer quadrant otherwise no skin change, no nipple retraction, no nipple discharge, no palpable mass, no enlarged lymph nodes Chest/axillae images:  1. right lumpectomy incision 2. left lumpectomy incision 3. left axillary incision Resp Effort & Inspection: normal respiratory effort Skin General skin exam: no rashes or lesions noted Neuro General: patient oriented x3 and moves all extremities Assessment & Plan Assessment & Plan (1) Morbid obesity: Code(s): E66.01 - Morbid (severe) obesity due to excess calories Category: Medical (2) BRCA gene positive: Code(s): Z15.01 - Genetic susceptibility to malignant neoplasm of breast; Z15.09 - Genetic susceptibility to other malignant neoplasm Category: Medical (3) Ductal carcinoma in situ (DCIS) of left breast: Code(s): D05.12 - Intraductal carcinoma in situ of left breast Category: Medical Plan 59-year-old female patient with a prior history of right breast carcinoma treated in [place] now with a newly diagnosed invasive ductal carcinoma and DCIS of the left breast. Patient has a strong family history of breast cancer including her mother and both maternal and paternal aunts. Subsequent genetic testing performed by Dr. Reddy was positive for BRCA 2. She is now s/p CYNTHIA-BSO in 10/03. She was referred to [facility] for prophylactic mastectomy with reconstruction however she is currently not a candidate with her BMI and smoking status. We discussed the weight management program here and she is interested and a referral was made. She was counseled on smoking cessation. Her yearly screening mammogram is scheduled for 02/14/25. She will follow up in approximately 6 months for follow up exam, sooner if she develops concerns. Orders: Referrals Medical Weight Management Referral E66.01 - Morbid (severe) obesity due to excess calories Coding Level of Care Code Est Pt Level 3 (79792) Diagnoses Morbid obesity E66.01 BRCA gene positive Z15.01; Z15.09 Ductal carcinoma in situ (DCIS) of left breast D05.12
[2024-12-22 10:34] VITALS: BP 125/60; PULSE 72; BMI 40.4
--- OUTSIDE RECORDS SUMMARY | 2024-12-22 12:46 | XMS_ITS | Clinical Summary ---
Author Organization [facility] Address [address] [place] [address] Care Team Providers Care Cold Water Machine Operator Name Role Phone Unavailable Primary Care Provider [...]
--- OUTSIDE RECORDS SUMMARY | 2024-12-22 12:46 | XMS_ITS | Clinical Summary ---
Author Organization [facility] ity Address [address] [place] [address] Care Team Providers Care Greenhouse Transplanter Name Role Phone Unavailable Primary Care Provider [...] Last Done Comments Breast Cancer Screening 1964 DTaP,Tdap,and Td Vaccines (1 - Tdap) 07/09/1983 Cervical Cancer Screening: P ap Smear 1985 Pneumococcal Vaccine: 50+ Ye ars (1 of 1 - PCV) 2014 Zoster Vaccines (1 of 2) 2014 Depression Screening 02/10/2024 COVID-19 Vaccine ( - 2024-2 6 season) 2024 Influenza Vaccine (#1) 2024 RSV Immunization Adult [...]
--- OUTSIDE RECORDS SUMMARY | 2024-12-22 12:46 | XMS_ITS | Clinical Summary ---
Author Organization [facility] Address [address] [place] [address] Phone Care Team Providers Care Stockfeed Miller Name Role Phone Angela Rincon NP Primary Care Provider [phone] Allergies No known active allergies Medications amLODIPine [...] ability to perform activities of daily living. Social History Tobacco Use Types Packs/Day Years [...] 06/15/2024 10:54 AM EDT Plan of Treatment Health Maintenance Due Date Last Done Comments LIPID PANEL 1964 DEPRESSION SCREENING 1976 HEPATITIS C SCREENING 1982 HIV ONE-TIME SCREENING (18-65 YEARS) 1982 PAP SMEAR 1985 SCREENING FOR DIABETES 07/09/1999 MAMMOGRAM 2004 COLOGUARD 2009 COLONOSCOPY 2009 COLORECTAL CANCER SCREENING 2009 FIT TEST 2009 FOBT 2009 SIGMOIDOSCOPY 2009 VIRTUAL COLONOSCOPY 2009 RSV VACCINE (1 - Risk 50-74 years 1-dose series) 2014 Adult Td,Tdap Booster 11/17/2023 11/16/2013 , 11/05/2011, 04/06/2003 INFLUENZA VACCINE (#1) 2024 , 12/07/2019, 11/11/2018, Additional history exists COVID-19 VACCINE ( season) 2024 08/14/2020, 07/16/2020 HEPATITIS A VACCINES Aged Out 09/27/2010, 04/06/19 [...] patient's age to complete this topic IPV VACCINES Aged Out No longer eligi ble based on patient's age to complete this topic MENINGOCOCCAL VACCINES (B) Aged Out N o longer eligible based on patient's age to complete this topic Medical Devices Not [place] [id number] [place] [id number] [place] [id number] Care Teams Stockfeed Miller Relationship Specialty Start Date End Date Angela Rincon NP [address] [place] [id number] PCP - General Nurse Practitioner 11/17/23 Additional Source Comments The information contained in this document represents components of the legal health record. It is not the complete legal health record.[facility]
== END 2024-12-22 10:59 | disposition home or self-care (01) ==
LOC: HO.HGS 10:24
PROVIDERS: PCP Nurse Practitioner Primary Care; Visit Provider Physician Assistant Surgical
DX: E66.01 Morbid (severe) obesity due to excess calories (principal); Z15.01 Genetic susceptibility to malignant neoplasm of breast; Z15.09 Genetic susceptibility to other malignant neoplasm; D05.12 Intraductal carcinoma in situ of left breast
CPT/HCPCS: 99213

== ENCOUNTER → 2024-12-22 10:23 | Outpatient (BNVA) | payer MEDICAID, SELFPAY | PROVIDERS: PCP Nurse Practitioner Primary Care; Visit Provider Physician Assistant Surgical | DX: E66.01 Morbid (severe) obesity due to excess calories (principal); D05.12 Intraductal carcinoma in situ of left breast; Z85.3 Personal history of malignant neoplasm of breast; Z92.21 Personal history of antineoplastic chemotherapy; Z92.3 Personal history of irradiation; Z80.3 Family history of malignant neoplasm of breast; Z15.01 Genetic susceptibility to malignant neoplasm of breast; Z90.710 Acquired absence of both cervix and uterus; Z90.722 Acquired absence of ovaries, bilateral; Z90.79 Acquired absence of other genital organ(s); Z79.61 Long term (current) use of immunomodulator | CPT/HCPCS: 99212 ==

== ENCOUNTER 2024-12-28 16:20 | Outpatient (REF) | payer MEDICAID, SELFPAY ==
--- OUTSIDE RECORDS SUMMARY | 2025-01-02 14:06 | XMS_ITS | Clinical Summary ---
Author Organization [facility] ity Address [address] [place] [address] Care Team Providers Care Press Operator Carbon Blocks Name Role Phone Unavailable Primary Care Provider [...]
--- OUTSIDE RECORDS SUMMARY | 2025-01-02 14:06 | XMS_ITS | Clinical Summary ---
Author Organization [facility] Address [address] [place] [address] Phone Care Team Providers Care Family Reunification Specialist Name Role Phone Angela Rincon NP Primary Care Provider [phone] Allergies No known active allergies Medications amLODIPine [...] topic Medical Devices Not on file [place] [place] [address] [employer] Care Teams Family Reunification Specialist Relationship Specialty Start Date End Date Angela Rincon NP [address] [place] [id number] PCP - General Nurse Practitioner 11/17/23 Additional Source Comments The information contained in this document represents components of the legal health record. It is not the complete legal health record.[facility]
--- OUTSIDE RECORDS SUMMARY | 2025-01-02 14:06 | XMS_ITS | Clinical Summary ---
Author Organization [employer] [facility] Address [address] [place] [address] Care Team Providers Care Gyn Name Role Phone Unavailable Primary Care Provider [...]
== END 2024-12-28 16:21 | disposition home or self-care (01) ==
LOC: HO.LNP 16:20
PROVIDERS: Visit Provider Advanced Practice Midwife
DX: Z12.4 Encounter for screening for malignant neoplasm of cervix (principal); B20 Human immunodeficiency virus [HIV] disease
CPT/HCPCS: 87626; 88112; 88175